=== PATIENT | female | born 1975 | race Caucasian/White ===

== ENCOUNTER 2018-01-02 17:41 | Emergency (ER) | payer BC ==
--- NOTE | 2018-01-02 19:49 | EDPHYS ---
Physician Documentation [facility] Name: Susanne Epps Age: 42 yrs Sex: Female : 1975 Arrival Date: 01/02/2018 Time: 17:52 Bed DIS19 Private MD: Mirza Chavarria ED Physician Storm Chavarria HPI: 01/02 19:47 This 42 yrs old Female presents to ER via Ambulatory with complaints of Flu gs Symptoms. 19:47 The patient or guardian reports cough, that is intermittent, described as moderate. gs Onset: The symptoms/episode began/occurred 2 week(s) ago, and became persistent. Severity of symptoms: At their worst the symptoms were moderate, in the emergency department the symptoms have improved, moderately. Modifying factors: The symptoms are alleviated by nothing, the symptoms are aggravated by nothing. Associated signs and symptoms: Pertinent positives: rhinorrhea, sore throat, Pertinent negatives: fever. The patient has experienced similar episodes in the past, a few times. The patient has not recently seen a physician. 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 - Social history:: Smoking status: Patient/guardian denies using tobacco. - Ebola Screening: : Patient denies travel to an Ebola-affected area in the 21 days before illness onset. ROS: 19:47 All other systems are negative. gs Exam: 19:47 Head/Face: Normocephalic, atraumatic. Eyes: Pupils equal round and reactive to light, gs extra-ocular motions intact. Lids and lashes normal. Conjunctiva and sclera are non-icteric and not injected. Cornea within normal limits. Periorbital areas with no swelling, redness, or edema. ENT: Nares patent. No nasal discharge, no septal abnormalities noted. Tympanic membranes are normal and external auditory canals are clear. Oropharynx with no redness, swelling, or masses, exudates, or evidence of obstruction, uvula midline. Mucous membranes moist. Neck: Trachea midline, no thyromegaly or masses palpated, and no cervical lymphadenopathy. Supple, full range of motion without nuchal rigidity, or vertebral point tenderness. No Meningismus. Chest/axilla: Normal chest wall appearance and motion. Nontender with no deformity. No lesions are appreciated. Cardiovascular: Regular rate and rhythm with a normal S1 and S2. No gallops, murmurs, or rubs. Normal PMI, no JVD. No pulse deficits. Respiratory: Lungs have equal breath sounds bilaterally, clear to auscultation and percussion. No rales, rhonchi or wheezes noted. No increased work of breathing, no retractions or nasal flaring. Abdomen/GI: Soft, non-tender, with normal bowel sounds. No distension or tympany. No guarding or rebound. No evidence of tenderness throughout. Back: No spinal tenderness. No costovertebral tenderness. Full range of motion. Skin: Warm, dry with normal turgor. Normal color with no rashes, no lesions, and no evidence of cellulitis. MS/ Extremity: Pulses equal, no cyanosis. Neurovascular intact. Full, normal range of motion. Neuro: Awake and alert, GCS 15, oriented to person, place, time, and situation. Cranial nerves II-XII grossly intact. Motor strength 5/5 in all extremities. Sensory grossly intact. Cerebellar exam normal. Normal gait. 19:47 Constitutional: The patient appears alert, awake. Vital Signs: 17:57 BP 134 / 98; Pulse 83; Resp 17; Temp 98.4(O); Pulse Ox 98% on R/A; Pain 8/10; tw2 MDM: 19:43 Patient medically screened. gs 19:47 Differential Diagnosis: Bronchitis Influenza Upper Respiratory Infection Pharyngitis. gs Data reviewed: vital signs, nurses notes. Counseling: I had a detailed discussion with the patient and/or guardian regarding: the historical points, exam findings, and any diagnostic results supporting the discharge/admit diagnosis, the need for outpatient follow up, moist cough noted. Response to treatment: the patient's symptoms have mildly improved after treatment, and as a result, I will discharge patient. 01/02 18:01 Order name: Flu; Complete Time: 19:44 tw2 01/02 18:01 Order name: Strep; Complete Time: 19:44 2 01/02 18:33 Order name: Throat Culture EDNY Administered Medications: 19:59 Drug: predniSONE 20 mg Route: PO; lp1 19:59 Follow up: Response: Medication administered at discharge. lp1 Disposition: 01/02/18 19:49 Discharged to Home. Impression: Acute bronchitis. - Condition is Stable. - Discharge Instructions: Acute Bronchitis, Adult. - Prescriptions for Prednisone 20 mg Oral Tablet - take 1 tablet by ORAL route once daily for 5 days; 5 tablet. Zyrtec 10 mg Oral Tablet - take 1 tablet by ORAL route once daily As needed; 20 tablet. Albuterol Sulfate 90 mcg/actuation - inhale 1-2 puff by INHALATION route every 4-6 hours; 1 Inhaler. - Medication Reconciliation Form, Thank You Letter, Antibiotic Education, Prescription Opioid Use form. - Follow up: Emergency Department; When: 2 - 3 days; Reason: Re-evaluation by your physician. Signatures: Dispatcher [employer] EDNY Alee Wood RN RN lp1 Kathrine Treviño RN RN tw2 Storm Chavarria MD MD Corrections: (The following items were deleted from the chart) 20:03 19:49 01/02/2018 19:49 Discharged to Home. Impression: Acute bronchitis. Condition is lp1 Stable. Forms are Medication Reconciliation Form, Thank You Letter, Antibiotic Education, Prescription Opioid Use. Follow up: Emergency Department; When: 2 - 3 days; Reason: Re-evaluation by your physician. gs
--- NOTE | 2018-01-02 19:49 | ER ---
Nurse's Notes [facility] Name: Susanne Epps Age: 42 yrs Sex: Female : 1975 Arrival Date: 01/02/2018 Time: 17:52 Bed DIS19 Private MD: Mirza Chavarria Diagnosis: Acute bronchitis Presentation: 01/02 17:56 Presenting complaint: Patient states: i have been having cough congestion for 3 weeks, tw2 it comes and goes and when it comes back it worse. Transition of care: patient was not received from another setting of care. Onset of symptoms was January 02, 2018. Risk Assessment: Do you want to hurt yourself or someone else? Patient reports no desire to harm self or others. Initial Sepsis Screen: Does the patient meet any 2 criteria? No. Patient's initial sepsis screen is negative. Does the patient have a suspected source of infection? No. Patient's initial sepsis screen is negative. Care prior to arrival: None. 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 - Social history:: Smoking status: Patient/guardian denies using tobacco. - Ebola Screening: : Patient denies travel to an Ebola-affected area in the 21 days before illness onset. Screenin:02 Abuse screen: Denies threats or abuse. Denies injuries from another. Nutritional lp1 screening: No deficits noted. Tuberculosis screening: No symptoms or risk factors identified. Fall Risk None identified. Assessment: 20:01 General: Appears in no apparent distress. Behavior is appropriate for age. Pain: Denies lp1 pain. Neuro: Level of Consciousness is awake, alert, obeys commands. Cardiovascular: No deficits noted. Respiratory: Reports shortness of breath pain with cough Respiratory effort is even, unlabored, Respiratory pattern is regular. GI: No deficits noted. : No deficits noted. EENT: Reports nasal congestion nasal discharge. Derm: Skin is pink, warm \T\ dry. Musculoskeletal: No deficits noted. Vital Signs: 17:57 BP 134 / 98; Pulse 83; Resp 17; Temp 98.4(O); Pulse Ox 98% on R/A; Pain 8/10; tw2 ED Course: 17:52 Patient arrived in ED. sb2 17:52 Mirza Chavarria DO is Private Physician. sb2 17:57 Triage completed. tw2 17:58 Arm band placed on. tw2 18:16 Strep Sent. tw2 18:16 Flu Sent. tw2 19:36 Storm Chavarria MD is Attending Physician. 19:47 Alee Wood RN is Primary Nurse. lp1 20:02 Patient has correct armband on for positive identification. lp1 20:02 No provider procedures requiring assistance completed. Patient did not have IV access lp1 during this emergency room visit. Administered Medications: 19:59 Drug: predniSONE 20 mg Route: PO; lp1 19:59 Follow up: Response: Medication administered at discharge. lp1 Outcome: 19:49 Discharge ordered by . gs 20:02 Discharged to home ambulatory. lp1 20:02 Condition: good 20:02 Discharge instructions given to patient, Instructed on discharge instructions, follow up and referral plans. medication usage, Demonstrated understanding of instructions, follow-up care, medications, Prescriptions given X 3. 20:03 Patient left the ED. lp1 Signatures: Alee Wood RN RN lp1 Kathrine Treviño RN RN tw2 Storm Chavarria MD MD Whitley Rangel sb2
[2018-01-02] MEDS ORDERED: predniSONE 20 MG TAB ONE (20:02)
== END 2018-01-02 20:03 | disposition home or self-care (01) ==
LOC: ER 17:41
DX: J20.9 Acute bronchitis, unspecified (principal); F41.9 Anxiety disorder, unspecified; G40.909 Epilepsy, unspecified, not intractable, without status epilepticus; Z88.0 Allergy status to penicillin; Z88.8 Allergy status to other drugs, medicaments and biological substances
CPT/HCPCS: 87070; 87081; 87804; 99283; J7512

== ENCOUNTER 2018-12-30 16:26 | Emergency (ER) | payer OTHER ==
--- NOTE | 2018-12-30 17:10 | ER ---
Nurse's Notes [facility] Name: Susanne Epps Age: 43 yrs Sex: Female : 1975 Arrival Date: 12/30/2018 Time: 16:29 Bed 28 Private MD: Mirza Chavarria Diagnosis: Muscle spasm of back Presentation: 12/30 16:37 Presenting complaint: Patient states: NON-TRAUMATIC LEFT SUBSCAPULAR PAIN SINCE bp YESTERDAY. Transition of care: patient was not received from another setting of care. Onset of symptoms is unknown. Risk Assessment: Do you want to hurt yourself or someone else? Patient reports no desire to harm self or others. Initial Sepsis Screen: Does the patient meet any 2 criteria? No. Patient's initial sepsis screen is negative. Does the patient have a suspected source of infection? No. Patient's initial sepsis screen is negative. Care prior to arrival: None. 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 - Social history:: Smoking status: Patient/guardian denies using tobacco. - Ebola Screening: : No symptoms or risks identified at this time. Screenin:45 Abuse screen: Denies threats or abuse. Denies injuries from another. Nutritional aj1 screening: No deficits noted. Tuberculosis screening: No symptoms or risk factors identified. 17:34 Fall Risk None identified. aj1 Assessment: 16:45 General: Appears in no apparent distress. comfortable, Behavior is calm, cooperative, aj1 appropriate for age. Pain: Complains of pain in left subscapular area. Neuro: Level of Consciousness is awake, alert, obeys commands, Oriented to person, place, time, situation, Moves all extremities. Full function Gait is steady, Speech is normal, Facial symmetry appears normal. Cardiovascular: Patient's skin is warm and dry. Respiratory: Airway is patent Respiratory effort is even, unlabored, Respiratory pattern is regular, symmetrical. GI: No signs and/or symptoms were reported involving the gastrointestinal system. : No signs and/or symptoms were reported regarding the genitourinary system. EENT: No signs and/or symptoms were reported regarding the EENT system. Derm: No signs and/or symptoms reported regarding the dermatologic system. Skin is pink, warm \T\ dry. normal. Musculoskeletal: Range of motion: intact in all extremities. Vital Signs: 16:38 BP 135 / 94; Pulse 72; Resp 20; Temp 98.6; Pulse Ox 97% ; Weight 106.59 kg; Height 5 bp ft. 8 in. (172.72 cm); 16:38 Body Mass Index 35.73 (106.59 kg, 172.72 cm) bp ED Course: 16:29 Patient arrived in ED. mr 16:30 Mirza Chavarria DO is Private Physician. mr 16:37 Triage completed. bp 16:38 Arm band placed on. bp 16:42 Russell Knott PA is PHCP. jr8 16:42 Bartolo Hawkins MD is Attending Physician. jr8 16:43 Shelby Varghese, RN is Primary Nurse. aj1 16:45 Patient has correct armband on for positive identification. Bed in low position. Call aj1 light in reach. 16:45 No provider procedures requiring assistance completed. aj1 17:34 Patient did not have IV access during this emergency room visit. aj1 Administered Medications: No medications were administered Outcome: 17:09 Discharge ordered by . jr8 17:34 Discharged to home ambulatory. aj1 17:34 Condition: good 17:34 Discharge instructions given to patient, Instructed on discharge instructions, follow up and referral plans. medication usage, Demonstrated understanding of instructions, follow-up care, medications, Prescriptions given X 1. 17:35 Patient left the ED. aj1 Signatures: Shelby Varghese, RN RN [email or web address] Yamile Camarena mr Russell Knott PA PA jr8 Rosalino Catalan RN RN bp
--- NOTE | 2018-12-30 17:10 | EDPHYS ---
Physician Documentation [facility] Name: Susanne Epps Age: 43 yrs Sex: Female : 1975 Arrival Date: 12/30/2018 Time: 16:29 Bed 28 Private MD: Mirza Chavarria ED Physician Bartolo Hawkins HPI: 12/30 17:11 This 43 yrs old Female presents to ER via Ambulatory with complaints of Back jr8 Pain. 17:11 The patient presents with pain that is acute, with no known mechanism of injury. The jr8 symptoms are located in the left subscapular area. The pain does not radiate. Pt reports that she had onset of left subscapular pain that began yesterday while at the grocery store. pain is exacerbated by movement and ROM of back and left shoulder. Pt has used aleve at home with minimal relief. Pt denies CP/SOB, numbness or paresthesias. . 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 - Social history:: Smoking status: Patient/guardian denies using tobacco. - Ebola Screening: : No symptoms or risks identified at this time. ROS: 17:11 Constitutional: Negative for fever, chills, and weight loss, Eyes: Negative for injury, jr8 pain, redness, and discharge, ENT: Negative for injury, pain, and discharge, Neck: Negative for injury, pain, and swelling, Cardiovascular: Negative for chest pain, palpitations, and edema, Respiratory: Negative for shortness of breath, cough, wheezing, and pleuritic chest pain, Abdomen/GI: Negative for abdominal pain, nausea, vomiting, diarrhea, and constipation, MS/Extremity: Negative for injury and deformity, Skin: Negative for injury, rash, and discoloration, Neuro: Negative for headache, weakness, numbness, tingling, and seizure. 17:11 Back: Positive for pain with movement. Exam: 17:11 Constitutional: This is a well developed, well nourished patient who is awake, alert, jr8 and in no acute distress. Head/Face: Normocephalic, atraumatic. Eyes: Pupils equal round and reactive to light, extra-ocular motions intact. Lids and lashes normal. Conjunctiva and sclera are non-icteric and not injected. Cornea within normal limits. Periorbital areas with no swelling, redness, or edema. ENT: Nares patent. No nasal discharge, no septal abnormalities noted. Tympanic membranes are normal and external auditory canals are clear. Oropharynx with no redness, swelling, or masses, exudates, or evidence of obstruction, uvula midline. Mucous membranes moist. Neck: Trachea midline, no thyromegaly or masses palpated, and no cervical lymphadenopathy. Supple, full range of motion without nuchal rigidity, or vertebral point tenderness. No Meningismus. Chest/axilla: Normal chest wall appearance and motion. Nontender with no deformity. No lesions are appreciated. Cardiovascular: Regular rate and rhythm with a normal S1 and S2. No gallops, murmurs, or rubs. Normal PMI, no JVD. No pulse deficits. Respiratory: Lungs have equal breath sounds bilaterally, clear to auscultation and percussion. No rales, rhonchi or wheezes noted. No increased work of breathing, no retractions or nasal flaring. Abdomen/GI: Soft, non-tender, with normal bowel sounds. No distension or tympany. No guarding or rebound. No evidence of tenderness throughout. Back: No spinal tenderness. No costovertebral tenderness. Full range of motion. Skin: Warm, dry with normal turgor. Normal color with no rashes, no lesions, and no evidence of cellulitis. Neuro: Awake and alert, GCS 15, oriented to person, place, time, and situation. Cranial nerves II-XII grossly intact. Motor strength 5/5 in all extremities. Sensory grossly intact. Cerebellar exam normal. Normal gait. Vital Signs: 16:38 BP 135 / 94; Pulse 72; Resp 20; Temp 98.6; Pulse Ox 97% ; Weight 106.59 kg; Height 5 bp ft. 8 in. (172.72 cm); 16:38 Body Mass Index 35.73 (106.59 kg, 172.72 cm) bp MDM: 16:42 Patient medically screened. jr8 17:07 Data reviewed: vital signs, nurses notes. Data interpreted: Pulse oximetry: on room air jr8 is 97 %. Interpretation: normal. Counseling: I had a detailed discussion with the patient and/or guardian regarding: the historical points, exam findings, and any diagnostic results supporting the discharge/admit diagnosis. Administered Medications: No medications were administered Disposition: 12/31 08:36 Co-signature as Attending Physician, Bartolo Hawkins MD I agree with the assessment and [facility] plan of care. Disposition: 12/30/18 17:09 Discharged to Home. Impression: Muscle spasm of back. - Condition is Stable. - Discharge Instructions: Back Pain, Adult, Back Exercises, Back Injury Prevention. - Prescriptions for Skelaxin 800 mg Oral Tablet - take 1 tablet by ORAL route every 8 hours As needed; 30 tablet. - Work release form, Medication Reconciliation Form, Thank You Letter form. - Follow up: Private Physician; When: As needed; Reason: Recheck today's complaints, Re-evaluation by your physician. - Problem is new. - Symptoms have improved. Signatures: Shelby Varghese, RN RN aj1 Bartolo Hawkins MD MD cha Roszak, Josh PA PA jr8 Rosalino Catalan, RN RN bp Corrections: (The following items were deleted from the chart) 12/30 17:35 17:09 12/30/2018 17:09 Discharged to Home. Impression: Muscle spasm of back. Condition aj1 is Stable. Forms are Medication Reconciliation Form, Thank You Letter, Antibiotic Education, Prescription Opioid Use. Follow up: Private Physician; When: As needed; Reason: Recheck today's complaints, Re-evaluation by your physician. Problem is new. Symptoms have improved. jr8
[2018-12-30 19:13] VITALS: BP 135/94; TEMP 98.6; O2SAT 97
== END 2018-12-30 17:35 | disposition home or self-care (01) ==
LOC: ER 16:26
DX: M62.830 Muscle spasm of back (principal); F41.9 Anxiety disorder, unspecified; G40.909 Epilepsy, unspecified, not intractable, without status epilepticus; Z88.0 Allergy status to penicillin; Z88.8 Allergy status to other drugs, medicaments and biological substances
CPT/HCPCS: 99282

== ENCOUNTER 2021-05-08 12:58 | Emergency (ER) | payer OTHER ==
--- OUTSIDE RECORDS SUMMARY | 2021-05-08 13:02 | XMS REPORT | Continuity of Care Document ---
:1975 Author Organization [facility] t Address [address] [place] [place] [address] Care Team Providers Name Role Phone John Carrington MD Primary Care Physician JORDON Attending Clinician Unavailable John Carrington Attending Clinician Unavailable Mario Alberto MARTINEZ Attending Clinician FARZANA FREEMAN Attending Clinician Unavailable BRANDON CORRALES Attending Clinician Unavailable Bri FRIEDMAN S Attending Clinician Aishwarya GREGORY Attending Clinician Unavailable Adenike Dobbs Attending Clinician Unavailable Payers Payer Name Policy Type Policy Number Effective Date Expiration Date S [facility] COMMUNITY PLAN [id number] 2020 STAR 00:00:00 COMMUNITY PLAN [id number] [facility] Problems Condition Condition Condition Status Onset Resolution Last Treating Co mments Source Name Details Category Date Date Treatment Clinician Date Lateral Lateral Disease Active [facility] epicondyli epicondyli 1-10 He alth tis of tis of 00:00: right right 00 elbow elbow Arthritis Arthritis Disease Active 2020-04 [facility] of of 15 Health carpometac carpometac 00:00: arpal arpal 00 (CMC) (CMC) joint of joint of right right thumb thumb Pain in Pain in Disease Active 2020-04 UT finger of finger of -15 Heal th both hands both hands 00:00: 00 Arthritis Arthritis Disease Active 2021-1 UT of of 1-15 Health carpometac carpometac 00:00: arpal arpal 00 (CMC) (CMC) joint of joint of left thumb left thumb Obesity Obesity Disease Active 2020-04 Univers (BMI (BMI 0-19 ity of 30-39.9) 30-39.9) 00:00: [place] [address] Medical Branch Seizure-li Seizure-li Disease Active 2020-04 U nivers ke ke 0-18 ity of activity activity 00:00: [place] [address] Medical Branch Allergies, Adverse Reactions, Alerts Allergy Allergy Status Severity Reaction(s) Onset Inactive Treating Comm ents Source Name Type Date Date Clinician Juliet Hollidayensi Active Other (See [facility] to Comments) 04-19 [place] adverse 00:00: of reaction 00 Medicin s to e drug Penicill Propensi Active Swelling [place] or ins ty to 04-19 [place] adverse 00:00: of reaction 00 Medicin s to e drug Penicill Allergy Active Anaphylaxis UT in G to 04-19 Health substanc 00:00: e 00 Penicill Propensi Active Anaphylaxis 2020-0 U T in G ty to 04-19 Health adverse 00:00: reaction 00 s Penicill Propensi Active Anaphylaxis 2020-0 U nivers in ty to 04-19 ity of adverse 00:00: [place] reaction 00 Medical s Branch PENICILL DRUG Active Med Anaphylaxis Uni vers IN INGREDI 04-19 ity of 00:00: [place] [facility] Social History Social Habit Start Date Stop Date Quantity Comments Source Exposure to Not sure [facility] SARS-CoV-2 (event) Tobacco use and 2021-04-19 2021-04-19 Smokeless tobacco [facility] exposure 00:00:00 00:00:00 non-user of Medicine Alcohol intake 2021-04-19 2021-04-[address] [facility] 00:00:00 00:00:00 (finding) of Medicine Sex Assigned At [birth year] [facility] 00:00:00 00:00:00 of Medicine Smoking Status Start Date Stop Date Source Ex-smoker 2021-04-19 00:00:00 2021-04-19 00:00:00 [facility] ollege of Medicine Never smoked tobacco [facility] Medications Ordered Filled Start Stop Current Ordering Indication Dosage Frequency Signature Comments Components Source Medication Medication Date Date Medication? Clinician (SIG) Name Name oxyCODONE-a Yes 49 1{tbl} Take 1-2 UT cetaminophe 1-20 tablets by He alth n 00:00: mouth (Percocet) 00 every 4 5-325 MG (four) tablet hours if needed for severe pain. busPIRone 2020-[address] [facility] (BUSPAR) 10 2-29 College MG tablet 00:00: of 00 Medicin e aripiprazol 2020-[address] [facility] e (ABILIFY) 2-29 College 2 MG tablet 00:00: of 00 Medicin e meloxicam 2020-[address] [facility] (MOBIC) 15 2-26 College MG tablet 00:00: of 00 Medicin e foLIC acid 2020-04 Yes [id number] 4mg Take 4 Univers 1 mg tablet 1-17 tablets by it y of 00:00: mouth [place] 00 daily. Medical Branch OXcarbazepi 2020-04 Yes [id number] 600mg Take 1 Univers ne 1-17 tablet by ity of (TRILEPTAL) 00:00: mouth 2 [place] as 600 mg 00 (two) Medical tablet times Branch daily. foLIC acid 2020-04 Yes [id number] 4mg Take 4 Univers 1 mg tablet 1-17 tablets by it y of 00:00: mouth [place] 00 daily. Medical Branch OXcarbazepi 2020-04 Yes [id number] 600mg Take 1 Univers ne 1-17 tablet by ity of (TRILEPTAL) 00:00: mouth 2 [place] 600 mg 00 (two) Medical tablet times Branch daily. foLIC acid 2020-04 Yes [id number] 4mg Take 4 Univers 1 mg tablet 1-17 tablets by it y of 00:00: mouth [place] 00 daily. Medical Branch OXcarbazepi 2020-04 Yes [id number] 600mg Take 1 Univers ne 1-17 tablet by ity of (TRILEPTAL) 00:00: mouth 2 [place] 600 mg 00 (two) Medical tablet times Branch daily. foLIC acid 2020-04 Yes [id number] 4mg Take 4 Univers 1 mg tablet 1-17 tablets by it y of 00:00: mouth [place] 00 daily. Medical Branch OXcarbazepi 2020-04 Yes [id number] 600mg Take 1 Univers ne 1-17 tablet by ity of (TRILEPTAL) 00:00: mouth 2 [place] 600 mg 00 (two) Medical tablet times Branch daily. foLIC acid 2020-04 Yes [id number] 4mg Take 4 Univers 1 mg tablet 1-17 tablets by it y of 00:00: mouth [place] 00 daily. Medical Branch OXcarbazepi 2020-04 Yes [id number] 600mg Take 1 Univers ne 1-17 tablet by ity of (TRILEPTAL) 00:00: mouth 2 [place] 600 mg 00 (two) Medical tablet times Branch daily. oxcarbazepi 2020-04 Yes 600mg Take 600 B aylor ne 1-17 mg by [place] (TRILEPTAL) 00:00: mouth. of 600 MG 00 Medicin tablet e folic acid 2020-04 Yes 4mg Take 4 mg [facility] (FOLVITE) 1 1-17 by mouth. Col lege MG tablet 00:00: of 00 Medicin e triamcinolo 2020-04- No [id number] 20mg UT ne 04-23 Health acetonide 15:01: 15:01 (Kenalog-40 58 :00 ) injection 20 mg triamcinolo 2020-04 No [id number] 20mg 20 mg, UT ne 04-23 [facility] acetonide 15:01: 15:01 cular, (Kenalog-40 58 :00 Once PRN ) injection Procedure, 20 mg Starting on Sun02/21/21 at 0901, For 1 dose lidocaine 2020-04 No [id number] 1mL 1 mL, UT (Xylocaine) 04-23 Injection, Health 1 % 15:01: 15:01 Once PRN injection 1 58 :00 Procedure, mL Starting on Sun02/21/21 at 0901, For 1 dose triamcinolo 2020-04 No [id number] 20mg 20 mg, UT ne 04-23 [facility] acetonide 15:01: 15:01 cular, (Kenalog-40 58 :00 Once PRN ) injection Procedure, 20 mg Starting on Sun02/21/21 at 0901, For 1 dose lidocaine 2020-04 No [id number] 1mL 1 mL, UT (Xylocaine) 04-23 Injection, Health 1 % 15:01: 15:01 Once PRN injection 1 58 :00 Procedure, mL Starting on Sun02/21/21 at 0901, For 1 dose lidocaine 2020-04- No [id number] 1mL UT (Xylocaine) 04-23 Health 1 % 15:01: 15:01 injection 1 58 :00 mL triamcinolo 2020-04- No [id number] 20mg UT ne 04-23 Health acetonide 15:01: 15:01 (Kenalog-40 58 :00 ) injection 20 mg lidocaine 2020-04- No [id number] 1mL UT (Xylocaine) 04-23 Health 1 % 15:01: 15:01 injection 1 58 :00 mL No known 2020-04 No No known UT medications 04-23 medication He alth 08:36: s 13 traZODone 2020-04 Yes Univers 100 mg 1-04 ity of tablet 00:00: [address] traZODone 2020-04 Yes Univers 100 mg 1-04 ity of tablet 00:00: [address] traZODone 2020-04 Yes Univers 100 mg 1-04 ity of tablet 00:00: [address] traZODone 2020-04 Yes Univers 100 mg 1-04 ity of tablet 00:00: [address] traZODone 2020-04 Yes Univers 100 mg 1-04 ity of tablet 00:00: [address] trazodone 2020-[address] [facility] (DESYREL) 104 College 100 MG 00:00: of tablet 00 Medicin e OXcarbazepi 2020-04- No [id number] 600mg Take 1 Univers ne 04-1017 tablet by ity of (TRILEPTAL) 00:00: 00:00 mouth 2 [place] 600 mg 00 :00 (two) Medical tablet times Branch daily. OXcarbazepi 2020-04- No [id number] 600mg Take 1 Univers ne 04-1017 tablet by ity of (TRILEPTAL) 00:00: 00:00 mouth 2 [place] 600 mg 00 :00 (two) Medical tablet times Branch daily. BRIVIACT 50 2020-04 Yes [place] [facility] TABS 0-17 College 00:00: of 00 Medicin e foLIC acid 2020- No [id number] 4mg Take 4 Univers 1 mg tablet 12-2017 tablets by i ty of 00:00: 00:00 mouth [place] 00 :00 daily. Medical Branch foLIC acid 2020- No [id number] 4mg Take 4 Univers 1 mg tablet 12-2017 tablets by i ty of 00:00: 00:00 mouth [place] 00 :00 daily. Medical Branch busPIRone 0 Yes Univers 7.5 mg 1-09 ity of tablet 00:00: Medical Branch busPIRone 2020-0 Yes Univers 7.5 mg 1-09 ity of tablet 00:00: 00 Medical Branch busPIRone 2020-0 Yes Univers 7.5 mg 1-09 ity of tablet 00:00: Medical Branch busPIRone 2020-0 Yes Univers 7.5 mg 1-09 ity of tablet 00:00: 00 Medical Branch busPIRone 2020-0 Yes Univers 7.5 mg 1-09 ity of tablet 00:00: 00 Medical Branch busPIRone 0 Yes [facility] (BUSPAR) 1-09 College 7.5 MG 00:00: of tablet 00 Medicin e Venlafaxine 0 Yes Univer s 225 mg TR24 1-08 ity of 00:00: [place] [facility] Venlafaxine 2020-0 Yes Univer s 225 mg TR24 1-08 ity of 00:00: [place] 00 Medical Branch Venlafaxine 2020-0 Yes Univer s 225 mg TR24 1-08 ity of 00:00: Medical Branch Venlafaxine 2020-0 Yes Univer s 225 mg TR24 1-08 ity of 00:00: [place] 00 Medical Branch Venlafaxine 2020-0 Yes Univer s 225 mg TR24 1-08 ity of 00:00: Medical Branch Venlafaxine 2020-0 Yes [facility] HCl 225 MG 1-08 College TB24 00:00: of 00 Medicin e Vital Signs Vital Name Observation Time Observation Value Comments Source Systolic blood 2021-04-19 15:03:00 139 mm[Hg] [facility] Diastolic blood 2021-04-19 15:03:00 91 mm[Hg] [facility] Heart rate 2021-04-19 15:03:00 76 /min [facility] Body temperature 2021-04-19 15:03:00 36.28 [facility] Body height 2021-04-19 15:03:00 170.2 cm [facility] Body weight 2021-04-19 15:03:00 86.183 kg [facility] BMI 2021-04-19 15:03:00 29.76 kg/m2 [facility] Systolic blood 2021-02-23 17:35:00 138 mm[Hg] [facility] Diastolic blood 2021-02-23 17:35:00 91 mm[Hg] Unive rs[facility] Heart rate 2021-02-23 17:33:00 61 /min [facility] Body temperature 2021-02-23 17:33:00 36.78 [facility] Body height 2021-02-23 17:33:00 170.2 cm [facility] Body weight 2021-02-23 17:33:00 88.451 kg [facility] BMI 2021-02-23 17:33:00 30.54 kg/m2 [facility] Oxygen saturation in 2021-02-23 17:33:00 99 /min [facility] Arterial blood by [facility] Pulse oximetry Branch Body height 2021-02-21 14:35:[address] [facility] Body weight 2021-02-21 14:35:00 88.451 kg [facility] BMI 2021-02-21 14:35:00 30.54 kg/m2 [facility] Procedures Procedure Date / Time Performed Performing Clinician Sourc e ARTHROCENTESIS ASPIR&/INJ SMALL 2021-02-21 15:01:[address] [facility] JT/BURSA W/O US BILATERAL XR FINGERS 2+ VIEWS RIGHT 2021-02-21 14:45:33 [facility] XR FINGERS 2+ VIEWS LEFT 2021-02-21 14:45:17 [facility] Plan of Care Planned Activity Planned Date Details Comments Source Future Scheduled 2021-04-20 Screening for malignant [facility] Test 09:07:39 neoplasm of colon Medicine (procedure) [code = 185035237] Future Scheduled 2021-04-20 Screening for malignant [facility] of Test 09:07:39 neoplasm of breast Medicine (procedure) [code = 748129332] Future Scheduled 2021-04-20 COVID-19 Vaccine (1) [facility] of Test 09:07:39 [code = COVID-19 Vaccine Med icine (1)] Future Scheduled 2021-04-20 TETANUS SHOT (ADULT) [facility] Test 09:07:39 [code = TETANUS SHOT Medicin e (ADULT)] Future Scheduled 2021-04-20 BMI FOLLOW UP PLAN [code [facility] of Test 09:07:39 = BMI FOLLOW UP PLAN] Medici ne Future Scheduled 2021-04-20 Hepatitis C screening [facility] Test 09:07:39 (procedure) [code = Medicine 553495917] Future Scheduled 2021-04-20 Human immunodeficiency B [facility] Test 09:07:39 virus screening Medicine (procedure) [code = 380275765] Future Scheduled 2021-04-20 Screening for malignant [facility] Test 09:07:39 neoplasm of cervix Medicine (procedure) [code = 912318829] Future Scheduled 2021-04-20 FLU VACCINE > 6 MONTHS B [facility] Test 09:07:39 [code = FLU VACCINE > 6 Medi cine MONTHS] Encounters Start End Encounter Admission Attending Care Care Encounter Source Date/Time Date/Time Type Type Clinicians Facility Department ID 2021-05-05 [id number] [facility] 13:54:55 [facility] 2021-05-04 Outpatient Carrington, [facility] [id number] 13:21:58 [place] [id number] Gwen [facility] 2021-05-04 Outpatient Carrington, [facility] [id number] 13:17:[address] Outpati ent Clinics 2021-04-18 Outpatient JORDON [facility] [id number] CT 15:10:35 [facility] 2021-04-18 Outpatient [facility] [id number] CT 14:08:37 Health 2021-02-21 Outpatient [facility] [id number] CT 08:37:12 Health 2021-02-21 Outpatient [facility] [id number] CT 08:37:12 Health 2021-05-06 2021-05-06 Telephone ESTEFANIA Llanes [id number] 00:00:00 00:00:[address] [id number] Health [id number] [id number] 2021-04-29 2021-04-29 Outpatient JORDON, [facility] [id number] 06:50:00 23:59:00 [place] [facility] 2021-04-19 2021-04-19 Office WYATT CORRALES [id number] [facility] 08:57:47 10:15:41 Visit ROSA AMBULATOR 350.1.13.21 College Y 0.2.7.2.686 of [id number] [facility] 805 e 2021-04-18 2021-04-18 Office ESTEFANIA Freeman [facility] [id number] 13:45:00 15:10:35 Visit [facility] [id number] [facility] MEDICAL 9.2.7.2.686 [place] 0 [id number] 2021-02-24 2021-02-24 Telephone Kenan Gregory [facility] [id number] Univers 00:00:00 00:00:00 S Y HEALTH 350.1.13.10 i ty of CL[place] [id number] [facility] shanell 092 Branch 2021-02-24 2021-02-24 Telephone Kenan Gregory [facility] [id number] Univers 00:00:00 00:00:00 S HEALTH [id number] [place]2.686 [place] [id number] [address] OFFICE BUILDING 2021-02-23 2021-02-23 Outpatient R KENAN GREGORY [facility] [id number] [facility] 12:00:00 12:00:00 ity of [facility] 2021-02-23 2021-02-23 Cap Coverer Draw, Clc-Bls Lab [facility] 1.2.8 [id number] Univers 11:44:53 11:59:53 Visit Kenan Gregory Aishwarya HEALTH [id number] ity [place] [id number] [address] OFFICE BUILDING 2021-02-23 2021-02-23 Office Kenan Gregory [facility] [id number] [facility] 11:21:16 11:51:16 Visit [facility] [id number] it [place] [id number] [address] OFFICE BUILDING 2021-02-21 2021-02-21 Office JORDONESTEFANIA [facility] [id number] 08:04:19 08:34:19 Visit KYLE HOPE 350.1.13.58 H [facility] 9.2.7.2.686 [place] [id number] 5 Results This patient has no known results.
--- NOTE | 2021-05-08 14:43 | ER ---
Nurse's Notes [facility] Name: Susanne Epps Age: 46 yrs Sex: Female : 1975 Arrival Date: 05/08/2021 Time: 13:05 Bed Waiting Private MD: Diagnosis: Disruption of external operation (surgical) wound, not elsewhere classified Presentation: 05/08 14:22 Chief complaint: Patient states: post surgical incision on Right thumb has had vg1 'greensish and think discharge' that began today. Coronavirus screen: Vaccine status: Patient reports receiving the 2nd dose of the covid vaccine. Client denies travel out of the [place] in the last 14 days. Ebola Screen: Patient negative for fever greater than or equal to 101.5 degrees Fahrenheit, and additional compatible Ebola Virus Disease symptoms. Initial Sepsis Screen: Does the patient meet any 2 criteria? No. Patient's initial sepsis screen is negative. Does the patient have a suspected source of infection? No. Patient's initial sepsis screen is negative. Risk Assessment: Do you want to hurt yourself or someone else? Patient reports no desire to harm self or others. Onset of symptoms was May 08, 2021. 14:22 Method Of Arrival: Ambulatory vg1 14:22 Acuity: JAYDA 4 vg1 Triage Assessment: 14:24 General: Appears in no apparent distress. comfortable, Behavior is calm, cooperative. vg1 Pain: Denies pain. Derm: post surgical site appears to be draining. 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 - Social history:: Smoking status: Patient denies any tobacco usage or history of. Screenin:20 Abuse screen: Denies threats or abuse. Nutritional screening: No deficits noted. vg1 Tuberculosis screening: No symptoms or risk factors identified. Fall Risk None identified. Vital Signs: 14:22 BP 132 / 97; Pulse 76; Resp 16; Temp 97.5; Pulse Ox 100% ; Weight 90.72 kg; Height 5 vg1 ft. 7 in. (170.18 cm); Pain 0/10; 14:22 Body Mass Index 31.32 (90.72 kg, 170.18 cm) vg1 ED Course: 13:05 Patient arrived in ED. ds1 14:24 Triage completed. vg1 14:24 Arm band placed on. vg1 14:37 Tania Amaya FNP-C [facility] kb 14:37 Bartolo Hawkins MD is Attending Physician. kb 15:20 Patient has correct armband on for positive identification. vg1 15:20 No provider procedures requiring assistance completed. Patient did not have IV access vg1 during this emergency room visit. Administered Medications: No medications were administered Outcome: 14:43 Discharge ordered by . kb 15:20 Discharged to home ambulatory, with family. vg1 15:20 Condition: good 15:20 Discharge instructions given to patient, Instructed on discharge instructions, follow up and referral plans. medication usage, Demonstrated understanding of instructions, follow-up care, medications, Prescriptions given X 1. 15:20 Patient left the ED. vg1 Signatures: Tania Amaya FNP-C FNP-Sanaz Honeycutt ds1 Kamille Woodard, RN RN vg1
--- NOTE | 2021-05-08 14:44 | EDPHYS ---
Physician Documentation [facility] Name: Susanne Epps Age: 46 yrs Sex: Female : 1975 Arrival Date: 05/08/2021 Time: 13:05 Bed Waiting Private MD: EARNESTINE Physician Bartolo Hawkins HPI: 05/08 14:39 This 46 yrs old Female presents to ER via Ambulatory with complaints of Post Surgical kb Pain. 14:39 Patient presents to ED for recheck of: surgical incision. The affected area is on the kb lateral aspect of right hand. Previous treatment: The patient was initially treated 9 day(s) ago. Progress: The patient reports increased drainage. The patient has not experienced similar symptoms in the past. The patient has been recently seen by a physician:. Pt states she had a bone removed from her right hand on 04/29/21. States she had some thick drainage from the incision site today . 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 - Social history:: Smoking status: Patient denies any tobacco usage or history of. ROS: 14:37 Constitutional: Negative for fever, chills, and weight loss. 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 . 14:37 All other systems are negative. Exam: 14:37 Constitutional: This is a well developed, well nourished patient who is awake, alert, kb and in no acute distress. Head/Face: Normocephalic, atraumatic. ENT: Moist Mucous membranes Respiratory: Respirations even and unlabored. No increased work of breathing. Talking in full sentences MS/ Extremity: Pulses equal, no cyanosis. Neurovascular intact. Full, normal range of motion. Neuro: Awake and alert, GCS 15, oriented to person, place, time, and situation. Moves all extremities. Normal gait. Psych: Awake, alert, with orientation to person, place and time. Behavior, mood, and affect are within normal limits. 14:37 Skin: surgical incision to right hand with mild dehiscence. No drainage at this time. No redness, swelling or warmth. Vital Signs: 14:22 BP 132 / 97; Pulse 76; Resp 16; Temp 97.5; Pulse Ox 100% ; Weight 90.72 kg; Height 5 vg1 ft. 7 in. (170.18 cm); Pain 0/10; 14:22 Body Mass Index 31.32 (90.72 kg, 170.18 cm) vg1 MDM: 14:37 Data reviewed: vital signs, nurses notes. Data interpreted: Pulse oximetry: on room air kb is 100 %. Interpretation: normal. Counseling: I had a detailed discussion with the patient and/or guardian regarding: the historical points, exam findings, and any diagnostic results supporting the discharge/admit diagnosis, the need for outpatient follow up, a hand specialist, to return to the emergency department if symptoms worsen or persist or if there are any questions or concerns that arise at home. ED course: Pt will follow up with surgeon this week. 14:43 Patient medically screened. kb Administered Medications: No medications were administered Disposition: 05/09 10:32 Co-signature as Attending Physician, Bartolo Hawkins MD I agree with the assessment and walker plan of care. Disposition Summary: 05/08/21 14:43 Discharge Ordered Location: Home kb Condition: Stable kb Diagnosis - Disruption of external operation (surgical) wound, not elsewhere classified kb Followup: kb - With: Emergency Department - When: As needed - Reason: Worsening of condition Followup: kb - With: Private Physician - When: 2 - 3 days - Reason: Recheck today's complaints, Continuance of care, Re-evaluation by your physician Discharge Instructions: - Discharge Summary Sheet kb - Wound Infection, Woed-cd-Yhoh kb Forms: - Medication Reconciliation Form kb - Thank You Letter kb - Antibiotic Education kb - Prescription Opioid Use kb - Work release form vg1 - Family Work Release vg1 Prescriptions: - Bactrim DS 800-160 mg Oral Tablet - take 1 tablet by ORAL route every 12 hours for 7 days; 14 tablet; Refills: 0, kb Product Selection Permitted Signatures: Tania Amaya, ERP PM-C ERP PM-Bartolo Gonzalez MD MD cha Garcia, Victoria, RN RN vg1
[2021-05-08 15:48] VITALS: BP 132/97; TEMP 97.5; O2SAT 100
== END 2021-05-08 15:20 | disposition home or self-care (01) ==
LOC: ER 12:58
DX: T81.31XA Disruption of external operation (surgical) wound, not elsewhere classified, initial encounter (principal); F41.9 Anxiety disorder, unspecified; Z88.0 Allergy status to penicillin; Z88.8 Allergy status to other drugs, medicaments and biological substances

== ENCOUNTER 2022-08-27 20:29 | Emergency (ER) | payer OTHER ==
--- OUTSIDE RECORDS SUMMARY | 2022-08-27 20:36 | XMS REPORT | Continuity of Care Document ---
:1975 Author Organization [facility] t Address [address] [place] [address] Care Team Providers Name Role Phone Gaston Carrington MD Primary Care Physician Gaston Carrington Attending Clinician Unavailable CHIRAG FREEMAN Attending Clinician Unavailable CINDY ESCUDERO Attending Clinician Unavailable Cindy Escudero MD Attending Clinician Unknown, Attending Attending Clinician Unavailable Doctor Unassigned, [place] Attending Clinician Unavailable Provider, [facility] Attending Clinician Unavailable Annetta Llanes APRN Attending Clinician CHIRAG FREEMAN Attending Clinician Unavailable Chirag Freeman Attending Clinician ROSA CORRALES Attending Clinician Unavailable KENAN GREGORY Attending Clinician Unavailable Rosa Corrales DO Attending Clinician [phone] Draw, [facility] Attending Clinician Unavailable Bri FRIEDMAN, Kenan Gracia Attending Clinician ELMERMUSTAPHAGOMEZ Attending Clinician Unavailable ROSHNI STEPHEN Attending Clinician Unavailable Joseph GILLIS, Bee Ortega Attending Clinician Unavailable ERIN MCINTYRE Attending Clinician Unavailable Renata Levi DO Attending Clinician Erin Mcintyre MD Attending Clinician RENATA LEVI Attending Clinician Unavailable Tg GILLIS, Joelle Ortega Attending Clinician Unavailable Jacob FRIEDMAN, Kiet Fagan Attending Clinician Kellee Toussaint MD Attending Clinician KELLEE TOUSSAINT Attending Clinician Unavailable Only, Adc Test Attending Clinician Unavailable Pob, Adc Lab Main Attending Clinician Unavailable Fabian Webb MD Attending Clinician FABIAN WEBB Attending Clinician Unavailable FABIAN WEBB Attending Clinician Unavailable Benito Cramer DO Attending Clinician Lab, Adc Fam Pob I Attending Clinician Unavailable Emilee [place] Attending Clinician Kellee Toussaint MD Admitting Clinician KELLEE TOUSSAINT Admitting Clinician Unavailable Payers Payer Name Policy Type Policy Number Effective Date Expiration Date S neri [facility] [id number] 2020 PLAN STAR 00:00:00 [facility] [id number] 2020 00:00:00 [facility] 2 [id number] [facility] PLAN [id number] [facility] Problems Condition Condition Condition Status Onset Resolution Last Treating Co mments Source Name Details Category Date Date Treatment Clinician Date 5A [id number] Diagnosis Active 2022-06-26 Memoria Active 06-23 11:50:00 l 06/23/2022 00:00: Corey aguero [place] [id number] [place] CARPOMETAC CARPOMETA Diagnosis Active 2022-06-28 Memoria ARPAL CARPAL 17 17:14:00 l ARTHROPLAS ARTHROPLAS 00:00: He sharif TY /C TY /C 00 INTERNAL INTERNAL Active 06/23/2022 [facility] CMC CMC Disease Active [facility] arthritis arthritis 3-14 Heal th 00:00: 00 Dislocatio Dislocatio Disease Active U T n of n of 3-14 Health carpometac carpometac 00:00: arpal arpal 00 joint of joint of left hand left hand Primary Primary Disease Active UT osteoarthr osteoarthr 05-01 He alth itis of itis of 00:00: first first 00 carpometac carpometac arpal arpal joint of joint of left hand left hand Pain of Pain of Disease Active UT right hand right hand 05-01 He alth 00:00: 00 Pain of Pain of Disease Active UT finger of finger of 05-01 Heal left hand left hand 00:00: 00 Subluxatio Subluxatio Disease Active U T n of n of 05-01 Health carpometac carpometac 00:00: arpal arpal 00 joint of joint of right right thumb thumb Lateral Lateral Disease Active UT epicondyli epicondyli 05-01 He alth tis of tis of 00:00: left elbow left elbow 00 Lateral Lateral Disease Active UT epicondyli epicondyli 05-01 He alth tis of tis of 00:00: right right 00 elbow elbow Thumb Thumb Disease Active UT pain, pain, 6-09 Health right right 00:00: 00 Pain of Pain of Disease Active UT ulnar side ulnar side 4-28 He alth of wrist of wrist 00:00: 00 RT CMC RT CMC Diagnosis Active 2021-07-13 M emoria ARTHRITIS, ARTHRITIS, 07-04 15:03:00 l THUMB THUMB 00:00: Ed WOUND WOUND 00 INFECTION INFECTION Active 07/04/2021 [facility] Wound Wound Disease Active UT infection infection 07-04 Heal after after 00:00: surgery surgery 00 RIGHT RIGHT Diagnosis Active 2021-05-03 Mem oria THUMB THUMB 04-19 19:39:00 l CARPOMETAC CARPOMETAC 00:00: He sharif DALTONPAL ARPAL 00 JOINT JOINT OSTEOA OSTEOA Active 04/19/2021 [facility] Ed Lateral Lateral Disease Active UT epicondyli epicondyli 1-10 He alth tis of tis of 00:00: right right 00 elbow elbow Arthritis Arthritis Disease Active 2020-04 UT of of -15 Health carpometac carpometac 00:00: arpal arpal 00 (CMC) (CMC) joint of joint of right right thumb thumb Pain in Pain in Disease Active 2020-04 UT finger of finger of 15 Heal th both hands both hands 00:00: 00 Obesity Obesity Disease Active 2020-04 Univers (BMI (BMI 0-19 ity of 30-39.9) 30-39.9) 00:00: [address] Seizure-li Seizure-li Disease Active 2020-04 U nivers ke ke 0-18 ity of activity activity 00:00: [address] [id number] Left hand Problem Co mmon [address] pain [facility] [id number] Tenosynovi Problem Co mmon tis of Spirit thumb - [facility] [id number] Vitamin D Problem Comm on deficiency [facility] [id number] Arthralgia Problem Com mon of Spirit multiple - [facility] joints [facility] Mixed Anxiety Problem Common anxiety and Spirit and depression - CHI depressive [facility] [id number] Lipids Problem Common abnormal [facility] [id number] Family Problem Common history of Spirit pancreatic - [facility] cancer [facility] [id number] Small Problem Common thenar [facility] eminence - [facility] [id number] Sprain of Problem Comm on metacarpop Spirit halangeal - CHI joint of right [facility] encounter [id number] Family Problem Common history of Spirit rheumatoid - [facility] arthritis [facility] [id number] History of Problem Co mmon seizure [facility] Anxiety Anxiety Problem Resolve 2021-07-11 M emoria (finding) (finding) d 10:41:07 l Resolved Ed Problem 07/11/2021 [facility] Depressive Problem Resolve 2021-07-11 Memoria disorder Depressive d 10:41:07 l (disorder) disorder Herm betty (disorder) Resolved Problem 07/11/2021 [facility] Generalize Generaliz Problem Resolve 2021-07-11 Memoria d seizure ed seizure d 10:41:07 l (finding) (finding) Herm betty Resolved Problem 07/11/2021 lasr seizure in 2003 [facility] Insomnia Insomnia Problem Resolve 2021-07-11 Memoria (disorder) (disorder) d 10:41:07 l Resolved [place] Problem 07/11/2021 [facility] Osteoarthr Osteoarth Problem Active 2022-06-30 Memoria itis of ritis of 05:01:49 l first first [place] carpometac carpometac arpal arpal joint of joint of right hand right hand (disorder) (disorder) Active Problem 06/30/2022 [facility] Arthritis Arthritis Problem Active 2022-06-30 Memoria of first of first 05:01:49 l carpometac carpometac He rmann arpal arpal joint of joint of left hand left hand Active Problem 06/30/2022 [facility] Simple Simple Problem Active 2022-06-30 Live dana obesity obesity 05:01:49 l (disorder) (disorder) He rmann Active Problem 06/30/2022 Ortho and [facility] Infected Infected Problem Active 2022-06-30 Memoria seroma seroma 05:01:49 l after after Ed surgical surgical procedure procedure (disorder) (disorder) Active Problem 06/30/2022 [facility] [id number] Intermitte Problem Co mmon nt Spirit palpitatio - CHI ns [facility] Allergic Allergic Diagnosis 2022-06-30 2022-06-30 Memoria arthritis arthritis 06-27 05:01:49 05:01:49 l of the of the 21:04: Ed hand hand 00 (disorder) (disorder) 06/27/2022 Diagnosis 06/30/2022 [facility] History of Past Illness Condition Condition Condition Status Onset Resolution Last Treating Co mments Source Name Details Category Date Date Treatment Clinician Date Infection Infection Problem 2021-07-11 2021-07-11 Memoria following following 07-08 10:41:07 10:41:07 l a a 19:49: Ed procedure, procedure, 00 superficia superficia l l incisional incisional surgical surgical site, site, initial initial encounter encounter 07/08/2021 07/11/2021 [facility] Unilateral Unilatera Problem 2021-05-02 2021-05-02 Memoria primary l primary 04-29 10:08:20 10:08:20 l osteoarthr osteoarthr 17:38: He rmann itis of itis of first first carpometac carpometac arpal arpal joint, joint, right hand right hand 05/02/2021 [facility] Allergies, Adverse Reactions, Alerts Allergy Allergy Status Severity Reaction(s) Onset Inactive Treating Comm ents Source Name Type Date Date Clinician Topamax Propensi Active Other (See [place] [facility] ty to Comments) 04-19 [place] adverse 00:00: of reaction 00 Medicin s to e drug TOPIRAMA DRUG Active Other-Cmnt Univ ers TE INGREDI 04-19 ity of 00:00: [place] 00 Medical Branch Topirama Propensi Active Other - See 0 U nivers te ty to comments 04-19 ity of adverse 00:00: [place] reaction 00 Medical s Branch Penicill Propensi Active Swelling [facility] or ins ty to 04-19 [place] adverse 00:00: of reaction 00 Medicin s to e drug Penicill Allergy Active Anaphylaxis UT in G to 04-19 Health substanc 00:00: e 00 Penicill Propensi Active Anaphylaxis 0 U T in G ty to 04-19 Health adverse 00:00: reaction 00 s Penicill Allergy Active Swelling Other UT ins to 04-19 reaction( Health substanc 00:00: s): e 00 Congestio n Penicill Propensi Active Anaphylaxis 0 U nivers in ty to 04-19 ity of adverse 00:00: [place] reaction 00 Medical s Branch PENICILL DRUG Active Med Anaphylaxis Uni vers IN INGREDI 04-19 ity of 00:00: [place] 00 Medical Branch topirama topirama Active Unknown Commo n te te [facility] Penicill Penicill Active Unknown Commo n in in [facility] penicill penicill Active Memori a ins ins l [place] Topamax Topamax Active [facility] Dilantin Dilantin Active [facility] [place] NKFA NKFA Active [place] Social History Social Habit Start Date Stop Date Quantity Comments Source History of [facility] - Tobacco Use [facility] Sex Assigned At [facility] - [facility] Exposure to 2022-08-13 2022-08-23 Not sure University of SARS-CoV-2 00:00:00 08:39:00 [facility] (event) Branch Alcohol intake 2022-02-06 2022-02-06 Ex-drinker [facility] lege of 00:00:00 00:00:00 (finding) Medicine Social History 2021-04-27 2021-04-27 Dhiraj flores 19:50:04 19:50:04 Cigarette 2021-02-21 2021-02-21 [place] [facility] pack-years 00:00:00 00:00:00 Tobacco use and 2020-04-19 2020-04-19 Smokeless tobacco Un iversity of exposure 00:00:00 00:00:00 non-user [facility] Smoking Status Start Date Stop Date Source Tobacco smoking status 2022-06-23 15:53:35 2022-06-23 15:53:35 M abby Ed Never smoked tobacco [place] [facility] Medications Ordered Filled Start Stop Current Ordering Indication Dosage Frequency Signature Comments Components Source Medication Medication Date Date Medication? Clinician (SIG) Name Name ondansetron Yes [id number] 4mg Take 1 Univers 4 mg 5-17 tablet by ity of disintegrat 00:00: mouth [place] ing tablet 00 every 8 Medica l (eight) Branch hours as needed for Nausea and Vomiting (N/V). ibuprofen Yes [id number] 600mg Take 1 U nivers 600 mg 5-17 tablet by ity of tablet 00:00: mouth [place] 00 every 6 Medical (six) Branch hours as needed for Pain (scale 1-3) or Pain (scale 4-6). ondansetron Yes [id number] 4mg Take 1 Univers 4 mg 5-17 tablet by ity of disintegrat 00:00: mouth [place] ing tablet 00 every 8 Medica l (eight) Branch hours as needed for Nausea and Vomiting (N/V). ibuprofen Yes [id number] 600mg Take 1 U nivers 600 mg 5-17 tablet by ity of tablet 00:00: mouth [place] 00 every 6 Medical (six) Branch hours as needed for Pain (scale 1-3) or Pain (scale 4-6). Nitrofurant 2022- Yes [id number] 100mg Take 1 Univers oin&Nit. 5-17 05-23 capsule by ity of Macroc[place] 00:00: 04:59 mouth in [place] 100 mg 00 :00 the Medical capsule morning Branch and 1 capsule in the evening. Do all this for 5 days. Nitrofurant 2022- Yes [id number] 100mg Take 1 Univers oin&Nit. 5-17 05-23 capsule by ity of Macrocryst 00:00: 04:59 mouth in [place] 100 mg 00 :00 the Medical capsule morning Branch and 1 capsule in the evening. Do all this for 5 days. phenazopyri 2022- Yes [id number] 200mg Take 2 Univers dine 100 mg 5-17 05-20 tablets by i ty of tablet 00:00: 04:59 mouth in [place] 00 :00 the Medical morning Branch and 2 tablets at noon and 2 tablets in the evening. Do all this for 2 days. phenazopyri 2022- Yes [id number] 200mg Take 2 Univers dine 100 mg 5-17 05-20 tablets by i ty of tablet 00:00: 04:59 mouth in [place] 00 :00 the Medical morning Branch and 2 tablets at noon and 2 tablets in the evening. Do all this for 2 days. Zofran 8 mg Yes 8 mg = 1 Me moria oral tablet 3-21 tab, PO, l 21:05: TID, # 12 Ed 00 tab, 0 Refill(s), called to pharmacy [place] Yes 1 tab, PO, Memori a 7.5/325 3-21 Q6H, # 40 l oral tablet 21:05: tab, 0 Herm betty 00 Refill(s), called to pharmacy Zofran 8 mg Yes 8 mg = 1 Me moria oral tablet 3-21 tab, PO, l 21:05: TID, # 12 Ed 00 tab, 0 Refill(s), called to pharmacy [place] 0 Yes 1 tab, PO, Memori a 7.5/325 3-21 Q6H, # 40 l oral tablet 21:05: tab, 0 Herm betty 00 Refill(s), called to pharmacy multivitami 2022-0 Yes Daily, 0 Me moria n 3-21 Refill(s) l 18:30: Ed 00 multivitami 2022-0 Yes Daily, 0 Me moria n 3-21 Refill(s) l 18:30: [place] folic acid 2022-0 Yes Daily, 0 Mem oria 3-17 Refill(s) l 15:52: Ed 00 folic acid 2022-0 Yes Daily, 0 Mem oria 3-17 Refill(s) l 15:52: Ed 00 Effexor 2022-0 Yes PO, 0 Memoria 3-17 Refill(s) l 15:51: [place] 00 Effexor 2022-0 Yes PO, 0 Memoria 3-17 Refill(s) l 15:51: [place] 00 lidocaine 2022- No [id number] 1mL UT (Xylocaine) 05-01 Health 1 % 14:30: 14:30 injection 1 00 :00 mL triamcinolo 2022- No [id number] 40mg U T ne 05-01 Health acetonide 14:30: 14:30 (Kenalog-40 00 :00 ) injection 40 mg triamcinolo 2022- No [id number] 40mg 40 mg, UT ne 05-01 Intra-carrol Health acetonide 14:30: 14:30 cular, (Kenalog-40 00 :00 Once PRN ) injection Procedure, 40 mg Starting on Sun05/01/22 at 0830, For 1 dose lidocaine 2022- No [id number] 1mL 1 mL, UT (Xylocaine) 05-01 Injection, H ealth 1 % 14:30: 14:30 Once PRN injection 1 00 :00 Procedure, mL Starting on Sun05/01/22 at 0830, For 1 dose lidocaine 2022-2022- No [id number] 1mL UT (Xylocaine) 05-01 Health 1 % 14:30: 14:30 injection 1 00 :00 mL triamcinolo 2022- No [id number] 40mg U T ne 05-01 Health acetonide 14:30: 14:30 (Kenalog-40 00 :00 ) injection 40 mg triamcinolo 2022- No [id number] 40mg 40 mg, UT ne 05-01 Intra-carrol Health acetonide 14:30: 14:30 cular, (Kenalog-40 00 :00 Once PRN ) injection Procedure, 40 mg Starting on Sun05/01/22 at 0830, For 1 dose lidocaine 2022- No [id number] 1mL 1 mL, UT (Xylocaine) 05-01 Injection, H ealth 1 % 14:30: 14:30 Once PRN injection 1 00 :00 Procedure, mL Starting on Sun05/01/22 at 0830, For 1 dose Bupivicaine Bupivicaine 2021-04 No 2.5mg [place] 1-14 Spirit 00:00: - [facility] 00 [facility] Depo-Medrol Depo-Medrol 2021-04 No 40mg Common (Methylpred (Methylpred 1-14 S pirit nisolone) nisolone) 00:00: - C [place] 40mg 40mg 00 [facility] zonisamide Yes [id number] 400mg Take 4 Univers (ZONEGRAN) 7-20 capsules ity o f 100 mg 00:00: by mouth [place] capsule 00 at Medical bedtime. Branch foLIC acid Yes [id number] 1mg Take 1 Univers 1 mg tablet 7-20 tablet by ity of 00:00: mouth in [place] 00 the Medical morning. Branch zonisamide Yes [id number] 400mg Take 4 Univers (ZONEGRAN) 7-20 capsules ity o f 100 mg 00:00: by mouth [place] capsule 00 at Medical bedtime. Branch foLIC acid Yes [id number] 1mg Take 1 Univers 1 mg tablet 7-20 tablet by ity of 00:00: mouth in [place] 00 the Medical morning. Branch zonisamide Yes [id number] 400mg Take 4 Univers (ZONEGRAN) 7-20 capsules ity o f 100 mg 00:00: by mouth [place] capsule 00 at Medical bedtime. Branch foLIC acid Yes [id number] 1mg Take 1 Univers 1 mg tablet 7-20 tablet by ity of 00:00: mouth in [place] 00 the Medical morning. Branch zonisamide Yes [id number] 400mg Take 4 Univers (ZONEGRAN) 7-20 capsules ity o f 100 mg 00:00: by mouth [place] capsule 00 at Medical bedtime. Branch foLIC acid Yes [id number] 1mg Take 1 Univers 1 mg tablet 7-20 tablet by ity of 00:00: mouth in [place] 00 the Medical morning. Branch zonisamide Yes [id number] 400mg Take 4 Univers (ZONEGRAN) 7-20 capsules ity o f 100 mg 00:00: by mouth [place] capsule 00 at Medical bedtime. Branch foLIC acid Yes [id number] 1mg Take 1 Univers 1 mg tablet 7-20 tablet by ity of 00:00: mouth in [place] the Medical morning. Branch lidocaine 2021- No [id number] 1mL UT (Xylocaine) 09-15 Health 1 % 20:08: 20:08 injection 1 38 :00 mL triamcinolo 2021- No [id number] 40mg UT ne 09-15 Health acetonide 20:08: 20:08 (Kenalog-40 38 :00 ) injection 40 mg triamcinolo 2021- No [id number] 40mg 40 mg, UT ne 09-15 Intra-carrol Health acetonide 20:08: 20:08 cular, (Kenalog-40 38 :00 Once PRN ) injection Procedure, 40 mg Starting on Nelly 09/15/21 at 1508, For 1 dose lidocaine 2021- No [id number] 1mL 1 mL, UT (Xylocaine) 09-15 Injection, Health 1 % 20:08: 20:08 Once PRN injection 1 38 :00 Procedure, mL Starting on Nelly 09/15/21 at 1508, For 1 dose Bupivicaine Bupivicaine No 2.5mg Common [place] 5- Spirit 00:00: - [facility] 00 [facility] Depo-Medrol Depo-Medrol No 40mg Common (Methylpred (Methylpred 5-02 S pirit nisolone) nisolone) 00:00: - C [place] 40mg 40mg 00 [facility] methylPREDN Yes Follow UT ISolone 08-04 schedule Health (Medrol 00:00: on package Dospak) 4 00 instructio MG tablets ns .. take 1st and then start mobic after finish methylPREDN Yes Follow UT ISolone 08-04 schedule Health (Medrol 00:00: on package D[place]ak) 4 00 instructio MG tablets ns .. take 1st and then start mobic after finish methylPREDN Yes Follow UT ISolone 08-04 schedule Health (Medrol 00:00: on package Dospak) 4 00 instructio MG tablets ns .. take 1st and then start mobic after finish methylPREDN Yes Follow UT ISolone 08-04 schedule Health (Medrol 00:00: on package Dospak) 4 00 instructio MG tablets ns .. take 1st and then start mobic after finish methylPREDN Yes Follow UT ISolone 08-04 schedule Health (Medrol 00:00: on package [place]ak) 4 00 instructio MG tablets ns .. take 1st and then start mobic after finish methylPREDN Yes Follow UT ISolone 08-04 schedule Health (Medrol 00:00: on package [place]ak) 4 00 instructio MG tablets ns .. take 1st and then start mobic after finish methylPREDN Yes Follow UT ISolone 08-04 schedule Health (Medrol 00:00: on package [place]) 4 00 instructio MG tablets ns .. take 1st and then start mobic after finish methylPREDN Yes Follow UT ISolone 08-04 schedule Health (Medrol 00:00: on package [place]) 4 00 instructio MG tablets ns .. take 1st and then start mobic after finish esomeprazol 2021- No [id number] 40mg Take 1 UT e (NexIUM) 08-04 05-20 capsule Healt h [address] 00:00: 04:59 (40 mg capsule 00 :00 total) by mouth 1 (one) time each day before breakfast for 21 days. Do not open capsule. meloxicam 15mg QD Take 1 UT (Mobic) 15 08-0414 tablet (15 He alth MG tablet 00:00: 04:59 mg total) 00 :00 by mouth 1 (one) time each day for 15 days. ANES No 10 mg, 2 Memoria labetalol 4-01 mL, Route: l 19:55: IVP, Drug form: INJ, Q5Min, Dosing Weight 96.818, kg, PRN Elevated BP, Start date: 07/08/21 14:55:00 CDT, Duration: 5 doses or times, Stop date: Limited # of times, 0 ANES No Notes: Memoria oxyCODONE 5 4-01 (Same as: l mg 19:55: Roxicodone immediate ) release tablet ANES No Notes: Memoria morphine 4-01 (Same l Sulfate 19:55: as:MORPhin Herm e Sulfate) ANES No Notes: Memoria HYDROmorpho 4-01 Same as l ne 19:55: Dilaudid ANES No Notes: Memoria flumazenil 4-01 (Same as: l 19:55: Romazicon) ANES No Notes: Memoria naloxone 4-01 Same as l 19:55: Narcan ANES No Notes: Memoria ePHEDrine 4-01 (Same as: l 19:55: ePHEDrine 00 Sulfate) ANES No Notes: Memoria diphenhydrA 4-01 (Same as: l MINE 19:55: Benadryl) ANES No Notes: Memoria meperidine 4-01 (Same as: l 19:55: Demerol) "Use Precaution in Elderly, Seizure disorders, and Renal impairment " ANES No Notes: Memoria ondansetron 4-01 (Same as: l 19:55: Zofran) MEDICATION WASTE Product Size: 4 mg Product Wasted: ___ mg ANES No Notes: Do Memoria promethazin 4-01 not give l e + Sodium 19:55: IV push. Her arndt Chloride 00 (Same as: 0.9% IV 100 Phenergan) mL ANES No 10 mg, 2 Memoria labetalol 4-01 mL, Route: l 19:55: IVP, Drug form: INJ, Q5Min, Dosing Weight 96.818, kg, PRN Elevated BP, Start date: 07/08/21 14:55:00 CDT, Duration: 5 doses or times, Stop date: Limited # of times, 0 ANES No Notes: Memoria oxyCODONE 5 4-01 (Same as: l mg 19:55: Roxicodone ) release tablet ANES No Notes: Memoria morphine 4-01 (Same l Sulfate 19:55: as:MORPhin e Sulfate) ANES No Notes: Memoria HYDROmorpho 4-01 Same as l ne 19:55: Dilaudid ANE No Notes: Memoria flumazenil 4-01 (Same as: l 19:55: Romazicon) ANES No Notes: Memoria naloxone 4-01 Same as l 19:55: Narcan ANE No Notes: Memoria ePHEDrine 4-01 (Same as: l 19:55: ePHEDrine 00 Sulfate) ANES No Notes: Memoria diphenhydrA 4-01 (Same as: l MINE 19:55: Benadryl) ANES No Notes: Memoria meperidine 4-01 (Same as: l 19:55: Demerol) "Use Precaution in Elderly, Seizure disorders, and Renal impairment " ANES No Notes: Memoria ondansetron 4-01 (Same as: l 19:55: Zofran) MEDICATION WASTE Product Size: 4 mg Product Wasted: ___ mg ANES No Notes: Do Memoria promethazin 4-01 not give l e + Sodium 19:55: IV push. Her arndt Chloride 00 (Same as: 0.9% IV 100 Phenergan) mL ANES No 10 mg, 2 Memoria labetalol 4-01 mL, Route: l 19:55: IVP, Drug form: INJ, Q5Min, Dosing Weight 96.818, kg, PRN Elevated BP, Start date: 07/08/21 14:55:00 CDT, Duration: 5 doses or times, Stop date: Limited # of times, 0 ANES No Notes: Memoria oxyCODONE 5 4-01 (Same as: l mg 19:55: Roxicodone ) release tablet ANES No Notes: Memoria morphine 4-01 (Same l Sulfate 19:55: as:MORPhin e Sulfate) ANES No Notes: Memoria HYDROmorpho 4-01 Same as l ne 19:55: Dilaudid ANES No Notes: Memoria flumazenil 4-01 (Same as: l 19:55: Romazicon) ANES No Notes: Memoria naloxone 4-01 Same as l 19:55: Narcan ANES No Notes: Memoria ePHEDrine 4-01 (Same as: l 19:55: ePHEDrine Sulfate) ANES No Notes: Memoria diphenhydrA 4-01 (Same as: l MINE 19:55: Benadryl) ANES No Notes: Memoria meperidine 4-01 (Same as: l 19:55: Demerol) "Use Precaution in Elderly, Seizure disorders, and Renal impairment " ANES No Notes: Memoria ondansetron 4-01 (Same as: l 19:55: Zofran) MEDICATION WASTE Product Size: 4 mg Product Wasted: ___ mg ANES No Notes: Do Memoria promethazin 4-01 not give l e + Sodium 19:55: IV push. Her arndt Chloride 00 (Same as: 0.9% IV 100 Phenergan) mL ANES No 10 mg, 2 Memoria labetalol 4-01 mL, Route: l 19:55: IVP, Drug form: INJ, Q5Min, Dosing Weight 96.818, kg, PRN Elevated BP, Start date: 07/08/21 14:55:00 CDT, Duration: 5 doses or times, Stop date: Limited # of times, 0 ANES No Notes: Memoria oxyCODONE 5 4- (Same as: l mg 19:55: Roxicodone ) release tablet ANES No Notes: Memoria morphine 4- (Same l Sulfate 19:55: as:MORPhin e Sulfate) ANES No Notes: Memoria HYDROmorpho 4- Same as l ne 19:55: Dilaudid ANES No Notes: Memoria flumazenil 4- (Same as: l 19:55: Romazicon) ANES No Notes: Memoria naloxone 4-01 Same as l 19:55: Narcan ANES No Notes: Memoria ePHEDrine 4- (Same as: l 19:55: ePHEDrine Sulfate) ANES No Notes: Memoria diphenhydrA 4- (Same as: l MINE 19:55: Benadryl) ANES No Notes: Memoria meperidine 4- (Same as: l 19:55: Demerol) "Use Precaution in Elderly, Seizure disorders, and Renal impairment " ANES No Notes: Memoria ondansetron 4- (Same as: l 19:55: Zofran) MEDICATION WASTE Product Size: 4 mg Product Wasted: ___ mg ANES No Notes: Do Memoria promethazin 4- not give l e + Sodium 19:55: IV push. Her arndt Chloride 00 (Same as: 0.9% IV 100 Phenergan) mL dexamethaso No Route: IV, Memoria ne (ANES) 4- Drug form: l 19:50: INJ, ONCE, [place] 00 Stop date: 07/08/21 14:50:00 CDT glycopyrrol No Route: IV, Memoria ate (ANES) 07-08 Drug form: l 19:50: INJ, ONCE, [place] 00 Stop date: 07/08/21 14:50:00 CDT Cleocin No Route: IV, Live dana Phosphate 07-08 Drug form: l (ANES) 19:50: INJ, ONCE, [place] nn Stop date: 07/08/21 14:50:00 CDT phenylephri No Route: IV, Memoria ne (ANES) 07-08 Drug form: l 19:50: INJ, ONCE, [place] 00 Stop date: 07/08/21 14:50:00 CDT ketOROLAC No IV, ONCE Live dana (ANES) 07-08 l 19:50: [place] 00 Colace 100 Yes 100 mg = 1 M emoria mg oral 07-08 cap, PO, l capsule 19:50: BID, # 12 [place]any nn 00 cap, 0 Refill(s), called to pharmacy Tylenol Yes 1 tab, PO, Live dana with 07-08 Q6H, # 12 l Codeine #3 19:50: tab, 0 [place] nn oral tablet 00 Refill(s), called to pharmacy Zofran 8 mg Yes 8 mg = 1 Me moria oral tablet 07-08 tab, PO, l 19:50: TID, # 12 [place] 00 tab, 0 Refill(s), called to pharmacy ondansetron No Route: IV, Memoria (ANES) 07-08 Drug form: l 19:50: INJ, ONCE, Stop date: 07/08/21 14:50:00 CDT dexamethaso No Route: IV, Memoria ne (ANES) 07-08 Drug form: l 19:50: INJ, ONCE, Stop date: 07/08/21 14:50:00 CDT glycopyrrol No Route: IV, Memoria ate (ANES) 07-08 Drug form: l 19:50: INJ, ONCE, Stop date: 07/08/21 14:50:00 CDT Cleocin No Route: IV, Live dana Phosphate 07-08 Drug form: l (ANES) 19:50: INJ, ONCE, [place] nn Stop date: 07/08/21 14:50:00 CDT phenylephri No Route: IV, Memoria ne (ANES) 07-08 Drug form: l 19:50: INJ, ONCE, [place] 00 Stop date: 07/08/21 14:50:00 CDT ketOROLAC No IV, ONCE Live dana (ANES) 07-08 l 19:50: [place] 00 Tylenol Yes 1 tab, PO, Live dana with 07-08 Q6H, # 12 l Codeine #3 19:50: tab, 0 [place] nn oral tablet 00 Refill(s), called to pharmacy Zofran 8 mg Yes 8 mg = 1 Me moria oral tablet 07-08 tab, PO, l 19:50: TID, # 12 Ed 00 tab, 0 Refill(s), called to pharmacy ondansetron No Route: IV, Memoria (ANES) 07-08 Drug form: l 19:50: INJ, ONCE, Stop date: 07/08/21 14:50:00 CDT Colace 100 Yes 100 mg = 1 M emoria mg oral 07-08 cap, PO, l capsule 19:50: BID, # 12 [place] nn 00 cap, 0 Refill(s), called to pharmacy dexamethaso No Route: IV, Memoria ne (ANES) 07-08 Drug form: l 19:50: INJ, ONCE, Stop date: 07/08/21 14:50:00 CDT glycopyrrol No Route: IV, Memoria ate (ANES) 07-08 Drug form: l 19:50: INJ, ONCE, Stop date: 07/08/21 14:50:00 CDT Cleocin No Route: IV, Live dana Phosphate 07-08 Drug form: l (ANES) 19:50: INJ, ONCE, [place] nn Stop date: 07/08/21 14:50:00 CDT phenylephri No Route: IV, Memoria ne (ANES) 07-08 Drug form: l 19:50: INJ, ONCE, [place] 00 Stop date: 07/08/21 14:50:00 CDT ketOROLAC No IV, ONCE Live dana (ANES) 07-08 l 19:50: [place] 00 Colace 100 Yes 100 mg = 1 M emoria mg oral 07-08 cap, PO, l capsule 19:50: BID, # 12 [place] nn 00 cap, 0 Refill(s), called to pharmacy Tylenol Yes 1 tab, PO, Live dana with 07-08 Q6H, # 12 l Codeine #3 19:50: tab, 0 [place] nn oral tablet 00 Refill(s), called to pharmacy Zofran 8 mg Yes 8 mg = 1 Me moria oral tablet 07-08 tab, PO, l 19:50: TID, # 12 Ed 00 tab, 0 Refill(s), called to pharmacy ondansetron No Route: IV, Memoria (ANES) 07-08 Drug form: l 19:50: INJ, ONCE, Stop date: 07/08/21 14:50:00 CDT dexamethaso No Route: IV, Memoria ne (ANES) 07-08 Drug form: l 19:50: INJ, ONCE, Stop date: 07/08/21 14:50:00 CDT glycopyrrol No Route: IV, Memoria ate (ANES) 07-08 Drug form: l 19:50: INJ, ONCE, Stop date: 07/08/21 14:50:00 CDT Cleocin No Route: IV, Live dana Phosphate 07-08 Drug form: l (ANES) 19:50: INJ, ONCE, [place] Stop date: 07/08/21 14:50:00 CDT phenylephri No Route: IV, Memoria ne (ANES) 07-08 Drug form: l 19:50: INJ, ONCE, Stop date: 07/08/21 14:50:00 CDT ketOROLAC No IV, ONCE Live dana (ANES) 07-08 l 19:50: [place] 00 Tylenol Yes 1 tab, PO, Live dana with 07-08 Q6H, # 12 l Codeine #3 19:50: tab, 0 [place] nn oral tablet 00 Refill(s), called to pharmacy Zofran 8 mg Yes 8 mg = 1 Me moria oral tablet 07-08 tab, PO, l 19:50: TID, # 12 Ed 00 tab, 0 Refill(s), called to pharmacy ondansetron No Route: IV, Memoria (ANES) 07-08 Drug form: l 19:50: INJ, ONCE, Stop date: 07/08/21 14:50:00 CDT Colace 100 Yes 100 mg = 1 M emoria mg oral 07-08 cap, PO, l capsule 19:50: BID, # 12 [place] nn 00 cap, 0 Refill(s), called to pharmacy midazolam No Route: IV, Me moria (ANES) 07-08 Drug form: l 19:45: SOLN, [place] ONCE, Stop date: 07/08/21 14:45:00 CDT lidocaine No Route: IV, Me moria (ANES) 07-08 Drug form: l 19:45: INJ, ONCE, Stop date: 07/08/21 14:45:00 CDT fentaNYL No Route: IV, Mem oria (ANES) 07-08 Drug form: l 19:45: INJ, ONCE, Stop date: 07/08/21 14:45:00 CDT propofol No Route: IV, Mem oria (ANES) 07-08 Drug form: l 19:45: INJ, ONCE, Stop date: 07/08/21 14:45:00 CDT midazolam No Route: IV, Me moria (ANES) 07-08 Drug form: l 19:45: SOLN, Ed 00 ONCE, Stop date: 07/08/21 14:45:00 CDT lidocaine 2021-0 No Route: IV, Me moria (ANES) 07-08 Drug form: l 19:45: INJ, ONCE, [place] 00 Stop date: 07/08/21 14:45:00 CDT fentaNYL 2021-0 No Route: IV, Mem oria (ANES) 07-08 Drug form: l 19:45: INJ, ONCE, [place] 00 Stop date: 07/08/21 14:45:00 CDT propofol 2021-0 No Route: IV, Mem oria (ANES) 07-08 Drug form: l 19:45: INJ, ONCE, [place] 00 Stop date: 07/08/21 14:45:00 CDT midazolam 2021-0 No Route: IV, Me moria (ANES) 07-08 Drug form: l 19:45: SOLN, [place] ONCE, Stop date: 07/08/21 14:45:00 CDT lidocaine 2021-0 No Route: IV, Me moria (ANES) 07-08 Drug form: l 19:45: INJ, ONCE, [place] 00 Stop date: 07/08/21 14:45:00 CDT fentaNYL 2021-0 No Route: IV, Mem oria (ANES) 07-08 Drug form: l 19:45: INJ, ONCE, [place] 00 Stop date: 07/08/21 14:45:00 CDT propofol 202-0 No Route: IV, Mem oria (ANES) 07-08 Drug form: l 19:45: INJ, ONCE, [place] 00 Stop date: 07/08/21 14:45:00 CDT midazolam 2021-0 No Route: IV, Me moria (ANES) 07-08 Drug form: l 19:45: SOLN, [place] 00 ONCE, Stop date: 07/08/21 14:45:00 CDT lidocaine 2021-0 No Route: IV, Me moria (ANES) 07-08 Drug form: l 19:45: INJ, ONCE, [place] 00 Stop date: 07/08/21 14:45:00 CDT fentaNYL 2021-0 No Route: IV, Mem oria (ANES) 07-08 Drug form: l 19:45: INJ, ONCE, [place] 00 Stop date: 07/08/21 14:45:00 CDT propofol 2-0 No Route: IV, Mem oria (ANES) 4-01 Drug form: l 19:45: INJ, ONCE, [place] Stop date: 07/08/21 14:45:00 CDT Lactated 2-0 No Route: IV, Mem oria Ringers 4-01 Total l Injection 19:01: Volume: [place] nn IV (ANES) 00 1,000, 1000 mL Start date: 07/08/21 14:01:00 CDT, Stop date: 07/08/21 15:01:00 CDT Lactated 2-0 No Route: IV, Mem oria Ringers 4-01 Total l Injection 19:01: Volume: [place] nn IV (ANES) 00 1,000, 1000 mL Start date: 07/08/21 14:01:00 CDT, Stop date: 07/08/21 15:01:00 CDT Lactated 2-0 No Route: IV, Mem oria Ringers 4-01 Total l Injection 19:01: Volume: [place] nn IV (ANES) 00 1,000, 1000 mL Start date: 07/08/21 14:01:00 CDT, Stop date: 07/08/21 15:01:00 CDT Lactated 2-0 No Route: IV, Mem oria Ringers 4-01 Total l Injection 19:01: Volume: [place] nn IV (ANES) 00 1,000, 1000 mL Start date: 07/08/21 14:01:00 CDT, Stop date: 07/08/21 15:01:00 CDT clindamycin 2-0 No 900 mg, 50 Memoria 4-01 mL, Route: l 19:00: IVPB, Drug form: INJ, PRE OP, Dosing Weight 96.818, kg, Start date: 07/08/21 14:00:00 CDT, Duration: 1 doses or times, Infuse over: 30 minutes, ABX Indication : Surgical Prophylaxi s, 0 clindamycin 2-0 No 900 mg, 50 Memoria 4-01 mL, Route: l 19:00: IVPB, Drug form: INJ, PRE OP, Dosing Weight 96.818, kg, Start date: 07/08/21 14:00:00 CDT, Duration: 1 doses or times, Infuse over: 30 minutes, ABX Indication : Surgical Prophylaxi s, 0 clindamycin 2022-0 No 900 mg, 50 Memoria 4-01 mL, Route: l 19:00: IVPB, Drug [place] 00 form: INJ, PRE OP, Dosing Weight 96.818, kg, Start date: 07/08/21 14:00:00 CDT, Duration: 1 doses or times, Infuse over: 30 minutes, ABX Indication : Surgical Prophylaxi s, 0 clindamycin 2022-0 No 900 mg, 50 Memoria 4-01 mL, Route: l 19:00: IVPB, Drug Ed 00 form: INJ, PRE OP, Dosing Weight 96.818, kg, Start date: 07/08/21 14:00:00 CDT, Duration: 1 doses or times, Infuse over: 30 minutes, ABX Indication : Surgical Prophylaxi s, 0 LR IV 1,000 2022-0 No 1,000 mL, M emoria mL 4- Rate: 75 l 18:18: ml/hr, [place] 00 Infuse over: 13.3 hr, Route: IV, Dosing Weight 96.818 kg, Total Volume: 1,000, Start date: 07/08/21 13:18:00 CDT, Duration: 30 day, Stop date: 08/07/21 13:17:00 CDT, BSA: 2.16 m2, 0 LR IV 1,000 2022-0 No 1,000 mL, M emoria mL 4- Rate: 75 l 18:18: ml/hr, [place] 00 Infuse over: 13.3 hr, Route: IV, Dosing Weight 96.818 kg, Total Volume: 1,000, Start date: 07/08/21 13:18:00 CDT, Duration: 30 day, Stop date: 08/07/21 13:17:00 CDT, BSA: 2.16 m2, 0 LR IV 1,000 2022-0 No 1,000 mL, M emoria mL 4- Rate: 75 l 18:18: ml/hr, [place] 00 Infuse over: 13.3 hr, Route: IV, Dosing Weight 96.818 kg, Total Volume: 1,000, Start date: 07/08/21 13:18:00 CDT, Duration: 30 day, Stop date: 08/07/21 13:17:00 CDT, BSA: 2.16 m2, 0 LR IV 1,000 2022-0 No 1,000 mL, M emoria mL 4-01 Rate: 75 l 18:18: ml/hr, [place] 00 Infuse over: 13.3 hr, Route: IV, Dosing Weight 96.818 kg, Total Volume: 1,000, Start date: 07/08/21 13:18:00 CDT, Duration: 30 day, Stop date: 08/07/21 13:17:00 CDT, BSA: 2.16 m2, 0 Bactrim DS 2-0 Yes PO, Q12H, Me moria 800 mg- 160 4-01 0 l mg oral 17:40: Refill(s) [place] nn tablet 00 Bactrim DS 2-0 Yes PO, Q12H, Me moria 800 mg- 160 4-01 0 l mg oral 17:40: Refill(s) [place] nn tablet 00 Bactrim DS 2-0 Yes PO, Q12H, Me moria 800 mg- 160 4-01 0 l mg oral 17:40: Refill(s) [place] nn tablet 00 Bactrim DS 2-0 Yes PO, Q12H, Me moria 800 mg- 160 4-01 0 l mg oral 17:40: Refill(s) [place] nn tablet 00 KlonoPIN 2022-0 Yes 0.5 mg = 1 Mem oria 0.5 mg oral 3-29 tab, PO, l tablet 19:36: QID, # 90 [place] n 00 tab, 0 Refill(s) KlonoPIN 2022-0 Yes 0.5 mg = 1 Mem oria 0.5 mg oral 3-29 tab, PO, l tablet 19:36: QID, # 90 [place] n 00 tab, 0 Refill(s) KlonoPIN 2022-0 Yes 0.5 mg = 1 Mem oria 0.5 mg oral 3-29 tab, PO, l tablet 19:36: QID, # 90 [place] n 00 tab, 0 Refill(s) KlonoPIN 2022-0 Yes 0.5 mg = 1 Mem oria 0.5 mg oral 3-29 tab, PO, l tablet 19:36: QID, # 90 [place] n 00 tab, 0 Refill(s) zonisamide 2022-0 Yes 100 mg = 1 M emoria 100 mg oral 3-29 cap, PO, l capsule 19:35: Daily, # [place] n 00 30 cap, 0 Refill(s) zonisamide 2022-0 Yes 400 mg = 4 M emoria 100 mg oral 3-29 cap, PO, l capsule 19:35: Daily, # [place] n 00 30 cap, 0 Refill(s) zonisamide 2022-0 Yes 100 mg = 1 M emoria 100 mg oral 3-29 cap, PO, l capsule 19:35: Daily, # [place] n 00 30 cap, 0 Refill(s) zonisamide 2022-0 Yes 400 mg = 4 M emoria 100 mg oral 3-29 cap, PO, l capsule 19:35: Daily, # [place] n 00 30 cap, 0 Refill(s) zonisamide 2-0 Yes 400mg Take 400 [facility] (ZONEGRAN) 3-29 mg by [facility] 100 MG 00:00: mouth of capsule 00 daily. Medicin e zonisamide 2021-0 Yes 400mg Take 400 [facility] (ZONEGRAN) 3-29 mg by [facility] 100 MG 00:00: mouth of capsule 00 daily. Medicin e zonisamide 2021-0 Yes 400mg Take 400 [facility] (ZONEGRAN) 3-29 mg by [place] 100 MG 00:00: mouth of capsule 00 daily. Medicin e sulfamethox 2021-0 2021- No 226 1{tbl} Q.5D Take 1 U T azole-trime 3-28 04-05 tablet by He alth thoprim 00:00: 04:59 mouth 2 (Bactrim 00 :00 (two) DS) 800-160 times a MG tablet day for 7 days. clonazePAM 2021-0 Yes [id number] .5mg Take 1 U nivers 0.5 mg 3-21 tablet by ity of tablet 00:00: mouth [place] 00 every 8 Medical (eight) Branch hours. clonazePAM 2021-0 Yes [id number] .5mg Take 1 U nivers 0.5 mg 3-21 tablet by ity of tablet 00:00: mouth [place] 00 every 8 Medical (eight) Branch hours. zonisamide 2021-0 Yes [id number] 300mg Take 3 [facility] (ZONEGRAN) 3-20 capsules ity o f 100 mg 00:00: by mouth [place] capsule 00 at Medical bedtime. Branch zonisamide 2021-0 Yes [id number] 300mg Take 3 [facility] (ZONEGRAN) 3-20 capsules ity o f 100 mg 00:00: by mouth [place] capsule 00 at Medical bedtime. Branch phenytoin 2021- Yes [id number] 300mg Take 3 U nivers Extended 3-11 capsules ity of 100 mg 00:00: by mouth [place] capsule 00 at Medical bedtime. Branch phenytoin 2021-2021- No [id number] 300mg Take 3 [facility] Extended 3-11 03-20 capsules ity of 100 mg 00:00: 00:00 by mouth [place] capsule 00 :00 at Medical bedtime. Branch phenytoin 2021-2021- No [id number] 300mg Take 3 [facility] Extended 3-11 03-20 capsules ity of 100 mg 00:00: 00:00 by mouth [place] capsule 00 :00 at Medical bedtime. Branch foLIC acid Yes [id number] 1mg Take 1 [facility] 1 mg tablet 3-09 tablet by ity of 00:00: mouth [place] 00 daily. Medical Branch OXcarbazepi Yes [id number] 600mg Take 1 [facility] ne 3-09 tablet by ity of (TRILEPTAL) 00:00: mouth 2 [place] 600 mg 00 (two) Medical tablet times Branch daily. foLIC acid 2021-0 Yes [id number] 1mg Take 1 [facility] 1 mg tablet 3-09 tablet by ity of 00:00: mouth [place] 00 daily. Medical Branch foLIC acid 0 Yes [id number] 1mg Take 1 [facility] 1 mg tablet 3-09 tablet by ity of 00:00: mouth [place] 00 daily. Medical Branch OXcarbazepi 2021- No [id number] 600mg Take 1 [facility] ne 3-09 03-20 tablet by ity of (TRILEPTAL) 00:00: 00:00 mouth 2 [place] 600 mg 00 :00 (two) Medical tablet times Branch daily. OXcarbazepi 2021- No [id number] 600mg Take 1 [facility] ne 06-15-20 tablet by ity of (TRILEPTAL) 00:00: 00:00 mouth 2 [place] 600 mg 00 :00 (two) Medical tablet times Branch daily. Lacosamide 2021- No [id number] 150mg Take 1.5 [facility] (VIMPAT) 06-15-11 tablets by ity of 100 mg 00:00: 00:00 mouth 2 [place] tablet 00 :00 (two) Medical times Branch daily. sulfamethox 2021- No 226 1{tbl} Q.5D Take 1 U T azole-trime 2-17 -25 tablet by He alth thoprim 00:00: 05:59 mouth 2 (Bactrim 00 :00 (two) DS) 800-160 times a MG tablet day for 7 days. Acetaminoph Yes 1 tab, PO, Memoria en 325 MG / 21 Q6H, # 40 l Oxycodone 17:39: tab, 0 [place] n Hydrochlori 00 Refill(s), de 5 MG called to Oral Tablet pharmacy [Percocet 5/325] Docusate Yes 100 mg = 1 Mem oria Sodium 100 1-21 cap, PO, l MG Oral 17:39: BID, # 12 [place] nn Capsule 00 cap, 0 [Colace] Refill(s), called to pharmacy Acetaminoph Yes 1 tab, PO, Memoria en 325 MG / -21 Q6H, # 40 l Oxycodone 17:39: tab, 0 [place] n Hydrochlori 00 Refill(s), de 5 MG called to Oral Tablet pharmacy [Percocet 5/325] Docusate Yes 100 mg = 1 Mem oria Sodium 100 1-21 cap, PO, l MG Oral 17:39: BID, # 12 [place] nn Capsule 00 cap, 0 [Colace] Refill(s), called to pharmacy Colace 100 Yes 100 mg = 1 M emoria mg oral 1-21 cap, PO, l capsule 17:39: BID, # 12 [place] nn 00 cap, 0 Refill(s), called to pharmacy Acetaminoph Yes 1 tab, PO, Memoria en 325 MG / 21 Q6H, # 40 l Oxycodone 17:39: tab, 0 [place] n Hydrochlori 00 Refill(s), de 5 MG called to Oral Tablet pharmacy [[facility] ] Docusate Yes 100 mg = 1 Mem oria Sodium 100 1-21 cap, PO, l MG Oral 17:39: BID, # 12 [place] nn Capsule 00 cap, 0 [Colace] Refill(s), called to pharmacy Acetaminoph Yes 1 tab, PO, Memoria en 325 MG / 04-29 Q6H, # 40 l Oxycodone 17:39: tab, 0 [place] n Hydrochlori 00 Refill(s), de 5 MG called to Oral Tablet pharmacy [[facility] ] Docusate Yes 100 mg = 1 Mem oria Sodium 100 1-21 cap, PO, l MG Oral 17:39: BID, # 12 [place] nn Capsule 00 cap, 0 [Colace] Refill(s), called to pharmacy Colace 100 Yes 100 mg = 1 M emoria mg oral 1-21 cap, PO, l capsule 17:39: BID, # 12 [place] nn 00 cap, 0 Refill(s), called to pharmacy Ondansetron Yes 8 mg = 1 Me moria 8 MG Oral 1-21 tab, PO, l Tablet 17:38: TID, # 12 Corey n [Zofran] 00 tab, 0 Refill(s), called to pharmacy Ondansetron Yes 8 mg = 1 Me moria 8 MG Oral 1-21 tab, PO, l Tablet 17:38: TID, # 12 [place] n [Zofran] 00 tab, 0 Refill(s), called to pharmacy Ondansetron Yes 8 mg = 1 Me moria 8 MG Oral 1-21 tab, PO, l Tablet 17:38: TID, # 12 [place] n [Zofran] 00 tab, 0 Refill(s), called to pharmacy Ondansetron Yes 8 mg = 1 Me moria 8 MG Oral 1-21 tab, PO, l Tablet 17:38: TID, # 12 [place] n [Zofran] 00 tab, 0 Refill(s), called to pharmacy ePHEDrine No Route: IV, Me moria (ANES) 04-29 Drug form: l 17:34: INJ, ONCE, Stop date: 04/29/21 11:34:00 P[employer]ENGER [employer] ePHEDrine 0 No Route: IV, Me moria (ANES) 04-29 Drug form: l 17:34: INJ, ONCE, Stop date: 04/29/21 11:34:00 P[employer]ENGER [employer] ePHEDrine 0 No Route: IV, Me moria (ANES) 04-29 Drug form: l 17:34: INJ, ONCE, Stop date: 04/29/21 11:34:00 PASSENGER CONDUCTOR ePHEDrine 2021-0 No Route: IV, Me moria (ANES) 04-29 Drug form: l 17:34: INJ, ONCE, Stop date: 04/29/21 11:34:00 P[employer]ENGER CONDU[employer] ondansetron No Route: IV, Memoria (ANES) 04-29 Drug form: l 17:29: INJ, ONCE, Stop date: 04/29/21 11:29:00 PASSENGER CONDU[employer] dexamethaso 2021-0 No Route: IV, Memoria ne (ANES) 04-29 Drug form: l 17:29: INJ, ONCE, Stop date: 04/29/21 11:29:00 PASSENGER CONDUCTOR ondansetron 0 No Route: IV, Memoria (ANES) 04-29 Drug form: l 17:29: INJ, ONCE, Stop date: 04/29/21 11:29:00 PASSENGER CONDUCTOR dexamethaso 2021-0 No Route: IV, Memoria ne (ANES) 04-29 Drug form: l 17:29: INJ, ONCE, Stop date: 04/29/21 11:29:00 PASSENGER CONDUCTOR ondansetron 2021-0 No Route: IV, Memoria (ANES) 04-29 Drug form: l 17:29: INJ, ONCE, Stop date: 04/29/21 11:29:00 PASSENGER CONDUCTOR dexamethaso 2022-0 No Route: IV, Memoria ne (ANES) 04-29 Drug form: l 17:29: INJ, ONCE, Stop date: 04/29/21 11:29:00 PASSENGER CONDUCTOR ondansetron No Route: IV, Memoria (ANES) 04-29 Drug form: l 17:29: INJ, ONCE, Stop date: 04/29/21 11:29:00 PASSENGER CONDUCTOR dexamethaso No Route: IV, Memoria ne (ANES) 04-29 Drug form: l 17:29: INJ, ONCE, Stop date: 04/29/21 11:29:00 PASSENGER CONDUCTOR lidocaine 0 No Route: IV, Me moria (ANES) 04-29 Drug form: l 17:24: INJ, ONCE, Stop date: 04/29/21 11:24:00 PASSENGER CONDUCTOR propofol 2021-0 No Route: IV, Mem oria (ANES) 04-29 Drug form: l 17:24: INJ, ONCE, Stop date: 04/29/21 11:24:00 PASSENGER CONDUCTOR Cleocin 2021-0 No Route: IV, Live dana Phosphate 04-29 Drug form: l (ANES) 17:24: INJ, ONCE, [place] Stop date: 04/29/21 11:24:00 PASSENGER CONDUCTOR lidocaine 2021-0 No Route: IV, Me moria (ANES) 04-29 Drug form: l 17:24: INJ, ONCE, Stop date: 04/29/21 11:24:00 PASSENGER CONDUCTOR propofol 2021-0 No Route: IV, Mem oria (ANES) 04-29 Drug form: l 17:24: INJ, ONCE, Stop date: 04/29/21 11:24:00 PASSENGER CONDUCTOR Cleocin 2021-0 No Route: IV, Live dana Phosphate - Drug form: l (ANES) 17:24: INJ, ONCE, [place] Stop date: 04/29/21 11:24:00 PASSENGER CONDUCTOR lidocaine 2021-0 No Route: IV, Me moria (ANES) 04-29 Drug form: l 17:24: INJ, ONCE, Stop date: 04/29/21 11:24:00 PASSENGER CONDUCTOR propofol 2021-0 No Route: IV, Mem oria (ANES) 1-21 Drug form: l 17:24: INJ, ONCE, Ed Stop date: 04/29/21 11:24:00 PASSENGER CONDUCTOR Cleocin 2021-0 No Route: IV, Live dana Phosphate 1-21 Drug form: l (ANES) 17:24: INJ, ONCE, [place] nn Stop date: 04/29/21 11:24:00 PASSENGER CONDUCTOR lidocaine 2021-0 No Route: IV, Me moria (ANES) 1-21 Drug form: l 17:24: INJ, ONCE, [place] 00 Stop date: 04/29/21 11:24:00 PASSENGER CONDUCTOR propofol 2021-0 No Route: IV, Mem oria (ANES) 1-21 Drug form: l 17:24: INJ, ONCE, Ed 00 Stop date: 04/29/21 11:24:00 PASSENGER CONDUCTOR Cleocin 2021-0 No Route: IV, Live dana Phosphate 1-21 Drug form: l (ANES) 17:24: INJ, ONCE, [place] nn Stop date: 04/29/21 11:24:00 PASSENGER CONDUCTOR Lactated 2021-0 No Route: IV, Mem oria Ringers 1-21 Total l Injection 16:35: Volume: [place] nn IV (ANES) 00 1,000, 1000 mL Start date: 04/29/21 10:35:00 PASSENGER CONDUCTOR, Stop date: 04/29/21 11:35:00 PASSENGER CONDUCTOR Lactated 2021-0 No Route: IV, Mem oria Ringers 1-21 Total l Injection 16:35: Volume: [place] nn IV (ANES) 00 1,000, 1000 mL Start date: 04/29/21 10:35:00 PASSENGER CONDUCTOR, Stop date: 04/29/21 11:35:00 PASSENGER CONDUCTOR Lactated 2021-0 No Route: IV, Mem oria Ringers 1-21 Total l Injection 16:35: Volume: [place] nn IV (ANES) 00 1,000, 1000 mL Start date: 04/29/21 10:35:00 PASSENGER CONDUCTOR, Stop date: 04/29/21 11:35:00 PASSENGER CONDUCTOR Lactated 2021-0 No Route: IV, Mem oria Ringers 1-21 Total l Injection 16:35: Volume: [place] nn IV (ANES) 00 1,000, 1000 mL Start date: 04/29/21 10:35:00 PASSENGER CONDUCTOR, Stop date: 04/29/21 11:35:00 PASSENGER CONDUCTOR Clindamycin 2022-0 No 900 mg, 50 Memoria 1-21 mL, Route: l 15:00: IVPB, Drug [place] 00 form: INJ, ONCALL, Dosing Weight 90.909, kg, Start date: 04/29/21 9:00:00 P[employer]ENGER [employer], Duration: 30 day, Stop date: 05/29/21 8:59:00 PASSENGER CONDUCTOR, Infuse over: 30 minutes, ABX Indication : Surgical Prophylaxi s, 0 Clindamycin 2022-0 No 900 mg, 50 Memoria 1-21 mL, Route: l 15:00: IVPB, Drug Ed form: INJ, ONCALL, Dosing Weight 90.909, kg, Start date: 04/29/21 9:00:00 PASSENGER CONDU[employer], Duration: 30 day, Stop date: 05/29/21 8:59:00 PASSENGER CONDUCTOR, Infuse over: 30 minutes, ABX Indication : Surgical Prophylaxi s, 0 Clindamycin 2022-0 No 900 mg, 50 Memoria 1-21 mL, Route: l 15:00: IVPB, Drug Ed form: INJ, ONCALL, Dosing Weight 90.909, kg, Start date: 04/29/21 9:00:00 PASSENGER CONDUCTOR, Duration: 30 day, Stop date: 05/29/21 8:59:00 PASSENGER CONDUCTOR, Infuse over: 30 minutes, ABX Indication : Surgical Prophylaxi s, 0 Clindamycin 2022-0 No 900 mg, 50 Memoria 1-21 mL, Route: l 15:00: IVPB, Drug Ed form: INJ, ONCALL, Dosing Weight 90.909, kg, Start date: 04/29/21 9:00:00 PASSENGER CONDUCTOR, Duration: 30 day, Stop date: 05/29/21 8:59:00 PASSENGER CONDUCTOR, Infuse over: 30 minutes, ABX Indication : Surgical Prophylaxi s, 0 Trazodone 2-0 Yes 100 mg = 1 Me moria Hydrochlori 1-21 tab, PO, l de 100 MG 14:13: PRN, 0 Corey n Oral Tablet 00 Refill(s) meloxicam 2022-0 Yes 10 mg, PO, [place] [facility] 1-21 Daily, 0 l 14:13: Refill(s) [place] 00 Trazodone Yes 100 mg = 1 [facility] Hydrochlori 1-21 tab, PO, l de 100 MG 14:13: PRN, 0 Corey n Oral Tablet 00 Refill(s) meloxicam Yes 10 mg, PO, Me [facility] 1-21 Daily, 0 l 14:13: Refill(s) Ed 00 trazodone Yes 100 mg = 1 [facility] 100 mg oral -21 tab, PO, l tablet 14:13: PRN, 0 Ed 00 Refill(s) Trazodone Yes 100 mg = 1 [facility] Hydrochlori 1-21 tab, PO, l de 100 MG 14:13: PRN, 0 [place]y n Oral Tablet 00 Refill(s) meloxicam Yes 10 mg, PO, Me [facility] 1-21 Daily, 0 l 14:13: Refill(s) Trazodone Yes 100 mg = 1 [facility] Hydrochlori -21 tab, PO, l de 100 MG 14:13: PRN, 0 [place] n Oral Tablet 00 Refill(s) meloxicam Yes 10 mg, PO, Me [facility] -21 Daily, 0 l 14:13: Refill(s) trazodone Yes 100 mg = 1 [facility] 100 mg oral -21 tab, PO, l tablet 14:13: PRN, 0 Ed 00 Refill(s) aripiprazol Yes See [facility]ori a e 2 MG Oral - Instructio l Tablet 14:12: ns, PO Ed [Abilify] 00 Daily, 0 Refill(s) Buspar Yes See [facility] - Instructio l 14:12: ns, PO, 0 Ed 00 Refill(s) aripiprazol Yes See Memori a e 2 MG Oral - Instructio l Tablet 14:12: ns, PO [place] [Abilify] 00 Daily, 0 Refill(s) Buspar 2022-0 Yes See [facility] 1-21 Instructio l 14:12: ns, PO, 0 Ed 00 Refill(s) BuSpar 0 Yes See [facility] 1-21 Instructio l 14:12: ns, PO, 0 [place] 00 Refill(s) aripiprazol 0 Yes See Memori a e 2 MG Oral -21 Instructio l Tablet 14:12: ns, PO Ed [Abilify] 00 Daily, 0 Refill(s) Buspar Yes See [facility] 1-21 Instructio l 14:12: ns, PO, 0 Ed 00 Refill(s) aripiprazol Yes See Memori a e 2 MG Oral -21 Instructio l Tablet 14:12: ns, PO Ed [Abilify] 00 Daily, 0 Refill(s) Buspar Yes See [facility] 1-21 Instructio l 14:12: ns, PO, 0 [place] 00 Refill(s) BuSpar Yes See [facility] 1-21 Instructio l 14:12: ns, PO, 0 Ed 00 Refill(s) Effexor 2021-0 Yes PO, Daily, Live dana 1-21 0 l 14:11: Refill(s) [place] 00 Effexor 2021-0 Yes PO, Daily, Live dana 1-21 0 l 14:11: Refill(s) [place] 00 Effexor 2021-0 Yes PO, Daily, Live dana 1-21 0 l 14:11: Refill(s) Ed 00 Effexor 2021-0 Yes PO, Daily, Live dana 1-21 0 l 14:11: Refill(s) [place] 00 OXcarbazepi 0 Yes See Memori a ne 600 mg -21 Instructio l oral tablet 14:10: ns, 1 tab [facility] [place] 00 PO, 0 Refill(s) OXcarbazepi 0 Yes See [facility]ori a ne 600 mg -21 Instructio l oral tablet 14:10: ns, 1 tab [place] 00 PO, 0 Refill(s) OXcarbazepi 0 Yes See [facility] a ne 600 mg -21 Instructio l oral tablet 14:10: ns, 1 tab [facility] [place] 00 PO, 0 Refill(s) OXcarbazepi Yes See Memori a ne 600 mg 1-21 Instructio l oral tablet 14:10: ns, 1 tab [facility] [place] 00 PO, 0 Refill(s) oxyCODONE-a Yes 49 1{tbl} Take 1-2 UT cetaminophe 1-20 tablets by He alth n 00:00: mouth (Percocet) 00 every 4 5-325 MG (four) tablet hours if needed for severe pain. oxyCODONE-a Yes 49 1{tbl} Take 1-2 UT cetaminophe 1-20 tablets by He alth n 00:00: mouth (Percocet) 00 every 4 5-325 MG (four) tablet hours if needed for severe pain. oxyCODONE-a Yes 49 1{tbl} Take 1-2 UT cetaminophe 1-20 tablets by He alth n 00:00: mouth (Percocet) 00 every 4 5-325 MG (four) tablet hours if needed for severe pain. oxyCODONE-a Yes 49 1{tbl} Take 1-2 UT cetaminophe 1-20 tablets by He alth n 00:00: mouth (Percocet) 00 every 4 5-325 MG (four) tablet hours if needed for severe pain. oxyCODONE-a Yes 49 1{tbl} Take 1-2 UT cetaminophe 1-20 tablets by He alth n 00:00: mouth (Percocet) 00 every 4 5-325 MG (four) tablet hours if needed for severe pain. oxyCODONE-a Yes 49 1{tbl} Take 1-2 UT cetaminophe 1-20 tablets by He alth n 00:00: mouth (Percocet) 00 every 4 5-325 MG (four) tablet hours if needed for severe pain. oxyCODONE-a Yes 49 1{tbl} Take 1-2 UT cetaminophe 1-20 tablets by He alth n 00:00: mouth (Percocet) 00 every 4 5-325 MG (four) tablet hours if needed for severe pain. oxyCODONE-a Yes 49 1{tbl} Take 1-2 UT cetaminophe 1-20 tablets by He alth n 00:00: mouth (Percocet) 00 every 4 5-325 MG (four) tablet hours if needed for severe pain. oxyCODONE-a Yes 49 1{tbl} Take 1-2 UT cetaminophe 1-20 tablets by He alth n 00:00: mouth (Percocet) 00 every 4 5-325 MG (four) tablet hours if needed for severe pain. oxyCODONE-a Yes 49 1{tbl} Take 1-2 UT cetaminophe 1-20 tablets by He alth n 00:00: mouth (Percocet) 00 every 4 5-325 MG (four) tablet hours if needed for severe pain. oxyCODONE-a Yes 49 1{tbl} Take 1-2 UT cetaminophe 1-20 tablets by He alth n 00:00: mouth (Percocet) 00 every 4 5-325 MG (four) tablet hours if needed for severe pain. oxyCODONE-a Yes 49 1{tbl} Take 1-2 UT cetaminophe 1-20 tablets by He alth n 00:00: mouth (Percocet) 00 every 4 5-325 MG (four) tablet hours if needed for severe pain. oxyCODONE-a Yes 49 1{tbl} Take 1-2 UT cetaminophe 1-20 tablets by He alth n 00:00: mouth (Percocet) 00 every 4 5-325 MG (four) tablet hours if needed for severe pain. oxyCODONE-a Yes 49 1{tbl} Take 1-2 UT cetaminophe 1-20 tablets by He alth n 00:00: mouth (Percocet) 00 every 4 5-325 MG (four) tablet hours if needed for severe pain. oxyCODONE-a Yes 49 1{tbl} Take 1-2 UT cetaminophe 1-20 tablets by He alth n 00:00: mouth (Percocet) 00 every 4 5-325 MG (four) tablet hours if needed for severe pain. oxyCODONE-a Yes 49 1{tbl} Take 1-2 UT cetaminophe 1-20 tablets by He alth n 00:00: mouth (Percocet) 00 every 4 5-325 MG (four) tablet hours if needed for severe pain. oxyCODONE-a Yes 49 1{tbl} Take 1-2 UT cetaminophe 1-20 tablets by He alth n 00:00: mouth (Percocet) 00 every 4 5-325 MG (four) tablet hours if needed for severe pain. oxyCODONE-a Yes 49 1{tbl} Take 1-2 UT cetaminophe 1-20 tablets by He alth n 00:00: mouth (Percocet) 00 every 4 5-325 MG (four) tablet hours if needed for severe pain. oxyCODONE-a Yes 49 1{tbl} Take 1-2 UT cetaminophe 1-20 tablets by He alth n 00:00: mouth (Percocet) 00 every 4 5-325 MG (four) tablet hours if needed for severe pain. busPIRone 2020-04 Yes [facility] (BUSPAR) 10 2-29 [facility] MG tablet 00:00: of 00 Medicin e busPIRone 2020-04 Yes [facility] (BUSPAR) 10 2-29 College MG tablet 00:00: of 00 Medicin e aripiprazol 2020-04 Yes [facility] (ABILIFY) 2-29 College 2 MG tablet 00:00: of 00 Medicin e busPIRone 2020-04 Yes [facility] (BUSPAR) 10 2-29 College MG tablet 00:00: of 00 Medicin e busPIRone 2020-04 Yes [facility] (BUSPAR) 10 2-29 College MG tablet 00:00: of 00 Medicin e aripiprazol 2020-04- No Pardeep chow e (ABILIFY) 2-29 10-06 College 2 MG tablet 00:00: 00:00 of 00 :00 Medicin e meloxicam 2020-04 Yes [facility] (MOBIC) 15 2-26 College MG tablet 00:00: of 00 Medicin e meloxicam 2020-04- No [facility] (MOBIC) 15 2-26 10-06 College MG tablet 00:00: 00:00 of 00 :00 Medicin e folic acid 2020-04 Yes 4mg Take 4 mg [facility] (FOLVITE) 1 1-17 by mouth. Col lege MG tablet 00:00: of 00 Medicin e oxcarbazepi 2020-04 Yes 600mg Take 600 B aylor ne 1-17 mg by [facility] (TRILEPTAL) 00:00: mouth. of 600 MG 00 Medicin tablet e folic acid 2020-04 Yes 4mg Take 4 mg [facility] (FOLVITE) 1 1-17 by mouth. Col lege MG tablet 00:00: of 00 Medicin e folic acid 2020-04 Yes 4mg Take 4 mg [facility] (FOLVITE) 1 1-17 by mouth. Col lege MG tablet 00:00: of 00 Medicin e folic acid 2020-04 Yes 4mg Take 4 mg [facility] (FOLVITE) 1 1-17 by mouth. Col lege MG tablet 00:00: of 00 Medicin e oxcarbazepi 2020-04- No 600mg Take 600 [facility] ne 1-17 10-06 mg by [facility] (TRILEPTAL) 00:00: 00:00 mouth. of 600 MG 00 :00 Medicin tablet e lidocaine 2020-04- No [id number] 1mL UT (Xylocaine) 04-23 Health 1 % 15:01: 15:01 injection 1 58 :00 mL triamcinolo 2020-04- No [id number] 20mg UT ne 04-23 Health acetonide 15:01: 15:01 (Kenalog-40 58 :00 ) injection 20 mg lidocaine 2020-04- No [id number] 1mL UT (Xylocaine) 04-23 Health 1 % 15:01: 15:01 injection 1 58 :00 mL triamcinolo 2020-04- No [id number] 20mg UT ne 04-23 Health acetonide 15:01: 15:01 (Kenalog-40 58 :00 ) injection 20 mg triamcinolo 2020-04- No [id number] 20mg 20 mg, UT ne 04-23 [facility] acetonide 15:01: 15:01 cular, (Kenalog-40 58 :00 Once PRN ) injection Procedure, 20 mg Starting on Sun02/21/21 at 0901, For 1 dose lidocaine 2020-04- No [id number] 1mL 1 mL, UT (Xylocaine) 04-23 Injection, Health 1 % 15:01: 15:01 Once PRN injection 1 58 :00 Procedure, mL Starting on Sun02/21/21 at 0901, For 1 dose triamcinolo 2020-04 No [id number] 20mg 20 mg, UT ne 04-23 [facility] acetonide 15:01: 15:01 cular, (Kenalog-40 58 :00 Once PRN ) injection Procedure, 20 mg Starting on Sun02/21/21 at 0901, For 1 dose lidocaine 2020-04 No [id number] 1mL 1 mL, UT (Xylocaine) 04-23 Injection, Health 1 % 15:01: 15:01 Once PRN injection 1 58 :00 Procedure, mL Starting on Sun02/21/21 at 0901, For 1 dose No known 2020-04 No No known UT medications 04-23 medication He alth 08:36: s 13 trazodone 2020-04 Yes [facility] 1-04 College 100 MG 00:00: of tablet 00 Medicin e trazodone 2020-04 Yes [facility] 1-04 College 100 MG 00:00: of tablet 00 Medicin e trazodone 2020-04 Yes [facility] ([facility]) 1-04 College 100 MG 00:00: of tablet 00 Medicin e trazodone 2020-04 Yes [facility] 1-04 College 100 MG 00:00: of tablet 00 Medicin e traZODone 2020-04 Yes [facility] 100 mg 1-04 ity of tablet 00:00: [place] [address] Medical Branch traZODone 2020-04 Yes Univers 100 mg 1-04 ity of tablet 00:00: [place] [facility] traZODone 2020-04 Yes Univers 100 mg 1-04 ity of tablet 00:00: Medical Branch traZODone 2020-04 Yes [facility] 100 mg 1-04 ity of tablet 00:00: Medical Branch traZODone 2020-04 Yes [facility] 100 mg 1-04 ity of tablet 00:00: Medical Branch traZODone 2020-04 Yes [facility] 100 mg 1-04 ity of tablet 00:00: Medical Branch traZODone 2020-04 Yes [facility] 100 mg 1-04 ity of tablet 00:00: Medical Branch traZODone 2020-04 Yes [facility] 100 mg 1-04 ity of tablet 00:00: Medical Branch BRIVIACT 50 2020-04 Yes [facility] MG TABS 0-17 College 00:00: Medicin e BRIVIACT 50 2020-04 No [facility] MG TABS 0-17 10-06 [facility] 00:00: 00:00 of 00 :00 Medicin e Bupivicaine Bupivicaine No 2.5mg [facility] [place] 10-08 Spirit 00:00: - [facility] 00 [facility] Depo-Medrol Depo-Medrol No 40mg Common (Methylpred (Methylpred 7 S pirit nisolone) nisolone) 00:00: - C [place] 40mg 40mg 00 [facility] busPIRone Yes [facility] (BUSPAR) 1-09 College 7.5 MG 00:00: of tablet 00 Medicin e busPIRone Yes Univers 7.5 mg 1-09 ity of tablet 00:00: Medical Branch busPIRone Yes Univers 7.5 mg 1-09 ity of tablet 00:00: [facility] busPIRone Yes Univers 7.5 mg 1-09 ity of tablet 00:00: [facility] busPIRone Yes Univers 7.5 mg 1-09 ity of tablet 00:00: Medical Branch busPIRone Yes Univers 7.5 mg 1-09 ity of tablet 00:00: Medical Branch busPIRone Yes Univers 7.5 mg 1-09 ity of tablet 00:00: [place] 00 Medical Branch busPIRone 2021-0 Yes Univers 7.5 mg 1-09 ity of tablet 00:00: [place] 00 Medical Branch busPIRone 1-0 Yes Univers 7.5 mg 1-09 ity of tablet 00:00: [place] 00 Medical Branch busPIRone 2021-0 2- No [facility] (BUSPAR) 04-17 10-06 College 7.5 MG 00:00: 00:00 of tablet 00 :00 Medicin e Venlafaxine 2020-0 Yes [facility] HCl 225 MG 1-08 [place] [address] 00:00: of 00 Medicin e Venlafaxine 2020-0 Yes [facility] HCl 225 MG 08 [place] [address] 00:00: of 00 Medicin e Venlafaxine 2020-0 Yes [facility] HCl 225 MG 08 [place] [address] 00:00: of 00 Medicin e Venlafaxine 1-0 Yes [facility] HCl [address] [facility] 00:00: of 00 Medicin e Venlafaxine 2020-0 Yes Univer s 225 mg TR24 1-08 ity of 00:00: [place] 00 Medical Branch Venlafaxine 1-0 Yes Univer s 225 mg TR24 1-08 ity of 00:00: [place] 00 Medical Branch Venlafaxine 2021-0 Yes Univer s 225 mg TR24 1-08 ity of 00:00: [place] 00 Medical Branch Venlafaxine 2021-0 Yes Univer s 225 mg TR24 1-08 ity of 00:00: [place] 00 Medical Branch Venlafaxine 2021-0 Yes Univer s 225 mg TR24 1-08 ity of 00:00: [place] 00 Medical Branch Venlafaxine 2021-0 Yes Univer s 225 mg TR24 1-08 ity of 00:00: [place] 00 Medical Branch Venlafaxine 2021-0 Yes Univer s 225 mg TR24 1-08 ity of 00:00: [place] 00 Medical Branch Venlafaxine 2021-0 Yes Univer s 225 mg TR24 1-08 ity of 00:00: [place] 00 Medical Branch Venlafaxine Venlafaxine 2019-1 No 1{table QD Venlafaxin HCl ER 225 HCl ER 225 1-05 t_with_ e HCl ER MG MG 00:00: food} 225 MG 00 Betamethaso Betamethaso 2019-0 No .5mL Common ne Sodium ne Sodium 6-24 Spiri t Phosphate Phosphate 00:00: - C [place] 00 [facility] LIDOCAINE LIDOCAINE 2018-0 No 1mg Com mon HCL 10MG/ML HCL 10MG/ML 6-24 S pirit 00:00: - [facility] 00 [facility] wellbutrin wellbutrin No wellbutrin traZODone traZODone No traZODone HCl HCl HCl busPIRone busPIRone No busPIRone HCl HCl HCl Folic Acid Folic Acid No Folic Acid Bactrim Bactrim No Bactrim Tylenol # 3 Tylenol # 3 No Tylenol # 3 Mobic Mobic No Mobic Zonisamide Zonisamide No Zonisamide clonazePAM clonazePAM No 1{table QID clonazePAM 0.5 MG 0.5 MG t} 0.5 MG levETIRAcet levETIRAcet No levETIRAce am ER [address] ER 500 MG MG MG Zonisamide Zonisamide No Zonisamide PredniSONE PredniSONE No PredniSONE Vital Signs Vital Name Observation Time Observation Value Comments Source Systolic blood 2022-08-23 16:06:00 136 mm[Hg] [facility]iver [facility] Diastolic blood 2022-08-23 16:06:00 97 mm[Hg] Unive [facility] Heart rate 2022-08-23 16:00:00 87 /min [facility] Body temperature 2022-08-23 16:00:00 36.61 Yanira [facility] Respiratory rate 2022-08-23 16:00:00 16 /min [facility] Body height 2022-08-23 16:00:00 170.2 cm [facility] Body weight 2022-08-23 16:00:00 86.501 kg [facility] BMI 2022-08-23 16:00:00 29.87 kg/m2 [facility] Oxygen saturation in 2022-08-23 16:00:00 98 /min [facility] blood by [facility] Pulse oximetry Branch height 2022-02-20 13:45:00 67 [in_i] Common S pirit - [facility] weight 2022-02-20 13:45:00 204 [lb_av] [facility] temperature 2022-02-20 13:45:00 97.1 [degF] [facility] bmi 2022-02-20 13:45:00 31.95 kg/m2 [facility] pirit - [facility] blood pressure 2022-02-20 13:45:00 114 mm[Hg] [facility] - systolic [facility] blood pressure 2022-02-20 13:45:00 72 mm[Hg] [facility] - diastolic [facility] Systolic blood 2022-02-06 13:38:00 115 mm[Hg] [facility] Diastolic blood 2022-02-06 13:38:00 82 mm[Hg] [facility] Medicine Heart rate 2022-02-06 13:38:00 62 /min [facility] Body temperature 2022-02-06 13:38:00 37 Yanira [facility] Body height 2022-02-06 13:38:00 170.2 cm [facility] Body weight 2022-02-06 13:38:00 91.173 kg [facility] BMI 2022-02-06 13:38:00 31.48 kg/m2 [facility] Systolic blood 2022-01-16 14:23:00 115 mm[Hg] [facility] pressure Medicine Diastolic blood 2022-01-16 14:23:00 82 mm[Hg] [facility] Medicine Heart rate 2022-01-16 14:23:00 62 /min [facility] Body temperature 2022-01-16 14:23:00 36.83 Yanira [facility] Body height 2022-01-16 14:23:00 170.2 cm [facility] Body weight 2022-01-16 14:23:00 91.445 kg [facility] BMI 2022-01-16 14:23:00 31.58 kg/m2 [facility] Systolic blood 2022-01-12 16:08:00 118 mm[Hg] [facility] pressure Medicine Diastolic blood 2022-01-12 16:08:00 84 mm[Hg] [facility] pressure Medicine Heart rate 2022-01-12 16:08:00 62 /min [facility] Body temperature 2022-01-12 16:08:00 36.22 Yanira [facility] Respiratory rate 2022-01-12 16:08:00 16 /min [facility] Body height 2022-01-12 16:08:00 170.2 cm [facility] Body weight 2022-01-12 16:08:00 92.715 kg [facility] BMI 2022-01-12 16:08:00 32.01 kg/m2 [facility] Systolic blood 2021-04-19 15:03:00 139 mm[Hg] [facility] Medicine Diastolic blood 2021-04-19 15:03:00 91 mm[Hg] [facility] Medicine Heart rate 2021-04-19 15:03:00 76 /min [facility] Body temperature 2021-04-19 15:03:00 36.28 Yanira [facility] Body height 2021-04-19 15:03:00 170.2 cm [facility] Body weight 2021-04-19 15:03:00 86.183 [facility] BMI 2021-04-19 15:03:00 29.76 kg/m2 [facility] Body height 2021-02-21 14:35:00 [facility] 2021-02-21 14:35:00 88[facility]451 [facility] BMI 2021-02-21 14:35:00 30.54 kg[facility]m2 [facility] Systolic (mm Hg) 2022-06-27 23:20:00 [facility] Diastolic (mm Hg) 2022-06-27 23:20[facility] [place] Height 2022-06-23 15:49:00 5 [ft_i] [facility] [place] Weight 2022-06-23 15:49:00 [facility] [place] BMI Calculated 2022-06-23 15:49:00 Memori al [place] Systolic (mm Hg) 2021-07-08 21:45:00 Live [facility] Ed Diastolic (mm Hg) 2021-07-08 21:45:00 Mem orial Ed Respitory Rate 2021-07-08 21:03:00 Memori al [place] Systolic (mm Hg) 2021-07-08 21:03:00 Live rial Ed Diastolic (mm Hg) 2021-07-08 21:03:00 Mem orial Ed Respitory Rate 2021-07-08 20:53:00 Memori al Ed Systolic (mm Hg) 2021-07-08 20:53:00 Live rial Ed Diastolic (mm Hg) 2021-07-08 20:53:00 Mem orial [place] Respitory Rate 2021-07-08 20:43:00 Memori al Ed Height 2021-07-05 19:33:00 170.18 cm [facility] [place] Weight 2021-07-05 19:33:00 [facility] [place] BMI Calculated 2021-07-05 19:33:00 Mem[facility] [place] Respitory Rate 2021-04-29 19:00:00 Memori al [place] Systolic (mm Hg) 2021-04-29 19:00:00 Live rial Ed Diastolic (mm Hg) 2021-04-29 19:00:00 Mem orial Ed Systolic (mm Hg) 2021-04-29 18:45:00 Live rial [place] Diastolic (mm Hg) 2021-04-29 18:45:00 Mem orial [place] Respitory Rate 2021-04-29 18:45:00 Memori al [place] Respitory Rate 2021-04-29 18:30:00 Memori al [place] Systolic (mm Hg) 2021-04-29 18:30:00 Live rial Ed Diastolic (mm Hg) 2021-04-29 18:30:00 Mem orial [place] Height 2021-04-27 15:46:00 170.18 cm [facility] Weight 2021-04-27 15:46:00 [facility] BMI Calculated 2021-04-27 15:46:00 Memori al [place] Procedures Procedure Date / Time Performing Clinician Source Performed POCT URINALYSIS 2022-08-23 16:36[facility] TEST 2022-08-23 16:36:00 Cindy Escudero [facility] Medical Branch POCT SARS-COV-2 ANTIGEN 2022-08-23 16:18:00 Cindy Escudero [facility] (BINAX NOW) Medical Branch ASSIGNMENT OF BENEFITS 2022-08-23 16:00:59 Doctor Unassigned, [facility] Medical Branch AUTHORIZATION FOR RELEASE 2022-06-28 05:01:00 Doctor Unassigned, [facility] Name Medical Branch [place] ARTHROCENTESIS 2022-05-01 14:30:00 [facility] ASPIR&/INJ SMALL JT/BURSA W/O US AMB REF TO [facility] 2022-02-06 08:52:25 [facility] SC ARTHROCENTESIS 2021-09-15 20:08:38 [facility] ASPIR&/INJ SMALL JT/BURSA W/O US CBC AND DIFFERENTIAL 2021-07-04 17:54:00 [facility] th SEDIMENTATION RATE, 2021-07-04 17:54:00 [facility] Healt h AUTOMATED CAST APPLICATION 2021-06-06 17:52:39 [facility] CAST APPLICATION 2021-05-30 16:25:44 [facility] ARTHROCENTESIS ASPIR&/INJ 2021-02-21 15:01:58 [facility] SMALL JT/BURSA W/O US BILATERAL XR FINGERS 2+ VIEWS RIGHT 2021-02-21 14:45:33 [facility] XR FINGERS 2+ VIEWS LEFT 2021-02-21 14:45:17 [facility] Removal of gallbladder [facility] Trapeziectomy [facility] Plan of Care Planned Activity Planned Date Details Comments Source Future Scheduled 2022-02-06 Screening for malignant [facility] of Test 08:39:40 neoplasm of colon Medicine (procedure) [code = 213259592] Future Scheduled 2022-02-06 Screening for malignant [facility] of Test 08:39:40 neoplasm of breast Medicine (procedure) [code = 408099293] Future Scheduled 2022-02-06 COVID-19 Vaccine (#1) [facility] of Test 08:39:40 [code = COVID-19 Vaccine Med icine (#1)] Future Scheduled 2022-02-06 BMI FOLLOW UP PLAN [code [facility] of Test 08:39:40 = BMI FOLLOW UP PLAN] Medici ne Future Scheduled 2022-02-06 Hepatitis C screening [facility] of Test 08:39:40 (procedure) [code = Medicine 266781232] Future Scheduled 2022-02-06 Human immunodeficiency B [facility] of Test 08:39:40 virus screening Medicine (procedure) [code = 994814516] Future Scheduled 2022-02-06 Screening for malignant [facility] of Test 08:39:40 neoplasm of cervix Medicine (procedure) [code = 308117986] Future Scheduled 2022-02-06 FLU VACCINE > 6 MONTHS B [facility] of Test 08:39:40 [code = FLU VACCINE > 6 Medi cine MONTHS] Future Scheduled 2022-02-06 TETANUS SHOT (ADULT) [facility] of Test 08:39:40 [code = TETANUS SHOT Medicin e (ADULT)] Future Scheduled 2022-01-16 Screening for malignant [facility] of Test 08:43:20 neoplasm of colon Medicine (procedure) [code = 957253450] Future Scheduled 2022-01-16 Screening for malignant [facility] Test 08:43:20 neoplasm of breast Medicine (procedure) [code = 617820796] Future Scheduled 2022-01-16 COVID-19 Vaccine (#1) [facility] of Test 08:43:20 [code = COVID-19 Vaccine Med icine (#1)] Future Scheduled 2022-01-16 BMI FOLLOW UP PLAN [code [facility] Test 08:43:20 = BMI FOLLOW UP PLAN] Medici ne Future Scheduled 2022-01-16 Hepatitis C screening [facility] of Test 08:43:20 (procedure) [code = Medicine 297939595] Future Scheduled 2022-01-16 Human immunodeficiency B [facility] of Test 08:43:20 virus screening Medicine (procedure) [code = 452429582] Future Scheduled 2022-01-16 Screening for malignant [facility] Test 08:43:20 neoplasm of cervix Medicine (procedure) [code = 530248020] Future Scheduled 2022-01-16 FLU VACCINE > 6 MONTHS B [facility] of Test 08:43:20 [code = FLU VACCINE > 6 Medi cine MONTHS] Future Scheduled 2022-01-16 TETANUS SHOT (ADULT) [facility] Test 08:43:20 [code = TETANUS SHOT Medicin e (ADULT)] Future Scheduled 2022-01-12 Screening for malignant [facility] of Test 12:19:41 neoplasm of colon Medicine (procedure) [code = 003515106] Future Scheduled 2022-01-12 Screening for malignant [facility] Test 12:19:41 neoplasm of breast Medicine (procedure) [code = 613797570] Future Scheduled 2022-01-12 COVID-19 Vaccine (#1) [facility] Test 12:19:41 [code = COVID-19 Vaccine Med icine (#1)] Future Scheduled 2022-01-12 BMI FOLLOW UP PLAN [code [facility] Test 12:19:41 = BMI FOLLOW UP PLAN] Medici ne Future Scheduled 2022-01-12 Hepatitis C screening [facility] Test 12:19:41 (procedure) [code = Medicine 837752471] Future Scheduled 2022-01-12 Human immunodeficiency B [facility] Test 12:19:41 virus screening Medicine (procedure) [code = 809175604] Future Scheduled 2022-01-12 Screening for malignant [facility] Test 12:19:41 neoplasm of cervix Medicine (procedure) [code = 078195730] Future Scheduled 2022-01-12 FLU VACCINE > 6 MONTHS B [facility] Test 12:19:41 [code = FLU VACCINE > 6 Medi cine MONTHS] Future Scheduled 2022-01-12 TETANUS SHOT (ADULT) [facility] of Test 12:19:41 [code = TETANUS SHOT Medicin e (ADULT)] Future Scheduled 2021-04-20 Screening for malignant [facility] of Test 09:07:39 neoplasm of colon Medicine (procedure) [code = 847731327] Future Scheduled 2021-04-20 Screening for malignant [facility] Test 09:07:39 neoplasm of breast Medicine (procedure) [code = 340742663] Future Scheduled 2021-04-20 COVID-19 Vaccine (1) [facility] Test 09:07:39 [code = COVID-19 Vaccine Med icine (1)] Future Scheduled 2021-04-20 TETANUS SHOT (ADULT) [facility] 09:07:39 [code = TETANUS SHOT Medicin e (ADULT)] Future Scheduled 2021-04-20 BMI FOLLOW UP PLAN [code [facility] Test 09:07:39 = BMI FOLLOW UP PLAN] Medici ne Future Scheduled 2021-04-20 Hepatitis C screening [facility] 09:07:39 (procedure) [code = Medicine 290641413] Future Scheduled 2021-04-20 Human immunodeficiency B [facility] 09:07:39 virus screening Medicine (procedure) [code = 133298336] Future Scheduled 2021-04-20 Screening for malignant [facility] 09:07:39 neoplasm of cervix Medicine (procedure) [code = 560658883] Future Scheduled 2021-04-20 FLU VACCINE > 6 MONTHS B [facility] 09:07:39 [code = FLU VACCINE > 6 Medi cine MONTHS] Encounters Start End Encounter Admission Attending Care Care Encounter Source Date/Time Date/Time Type Type Clinicians Facility Department ID 2022-08-24 Outpatient [facility] [id number] [place] 21:22:46 [id number] [facility] 2022-07-18 Outpatient [facility] [id number] [place] 07:55:30 [id number] [facility] 2022-06-23 Outpatient [facility] [id number] [place] 10:10:00 [id number] [facility] 2022-05-01 Outpatient [facility] [id number] [place] 07:57:58 [id number] [facility] 2022-04-25 Outpatient [facility] [id number] [place] 14:17:26 [id number] [facility] 2022-02-20 Outpatient [place], [facility] [id number] Common 13:43:[address] [place] [address] [place] [address] 2022-01-20 Outpatient [facility] [id number] [place] 14:32:40 [id number] [facility] 2021-05-30 [facility] [id number] [place] 10:28:27 [facility] 2021-05-24 Outpatient PETE, [facility] [id number] [place] 09:21:40 [facility] 2021-05-19 Outpatient MANSSHAWNEE, [facility] [id number] [place] 12:08:03 [facility] 2021-05-13 Outpatient [facility] [id number] [place] 14:27:45 [facility] 2021-05-04 [facility] Car[facility] [id number] Common 13:21:58 Gaston Mathis [facility] 2021-05-04 [facility] [id number] Common 13:17:10 Gaston Walker [facility] 2021-04-18 Outpatient [facility] [id number] [place] 14:08:37 [facility] 2021-02-21 Outpatient [facility] [id number] [place] 08:37:12 [facility] 2021-02-21 Outpatient [facility] [id number] [place] 08:37:12 [facility] 2022-09-20 2022-09-20 Outpatient PETE, [facility] [id number] [place] 08:45:00 08:45:00 [facility] 2022-08-23 2022-08-23 Outpatient Jacy ESCUDERO [facility] [id number] Univers 11:20:00 11:46:12 CINDY ity of [facility] 2022-08-23 2022-08-23 Urgent Cindy Escudero [facility] 1.2.840.114 1 [id number] Univers 11:20:00 11:46:12 Care Unknown, [facility] 350.1.13.10 ity of [place] 4.2.7.2.686 Gerry as MARY?BLEA [phone] [place] dical [address] MEDICAL OFFICE BUILDING 2022-08-23 2022-08-23 Orders Doctor CHALO 1.2.840.114 [id number] Univers 00:00:00 00:00:00 Only Unassigned, MEENA 350.1.13.10 ity of [place] [facility] 4.2.7.2.686 Gerry as [id number] [address] 2022-08-23 2022-08-23 Letter Provider, [facility] 1.2.134.078 [id number] Univers 00:00:00 00:00:00 (Out) [facility] 350.1.13.10 it y of Urgent Care [place] 4.2.7.2.686 [place] MARY?BLEA [phone] [address] MEDICAL OFFICE [facility] 2022-08-09 2022-08-09 Office ESTEFANIA Llanes [facility] 1.2.829.191 [id number] [place] 08:30:00 09:22:14 Visit Annetta ORTHO AND 350.1.13.58 Health [place] 9.2.7.2.686 MEDICAL [id number] [place] 2 2022-07-11 2022-07-11 Outpatient JACQUIE, [facility] [id number] [place] 10:45:00 11:26:40 ANNETTA Health 2022-06-28 2022-06-28 Orders Doctor CHALO 1.2.840.114 [id number] [facility] 00:00:00 00:00:00 Only Unassigned, MEENA 350.1.13.[address] [place] [facility] 4.2.7.2.686 Gerry as [phone] [address] 2022-06-27 2022-06-27 Day [facility] [id number] Memoria 17:54:00 23:35:[address] 2022-06-27 2022-06-27 Day [facility] [id number] Memoria 17:54:00 23:35:[address] 2022-06-27 2022-06-27 Outpatient JAIMESHAWNEE, MHBL MHBL [id number] MHBL 12:54:00 18:35:00 ATHOL 2022-06-27 2022-06-27 Outpatient Pete, MHPL [id number] 12:54:00 18:35:[address] 2022-06-20 2022-06-20 Office Pete [facility] 1.2.840.114 [id number] [place] 09:00:00 09:45:16 Visit Chirag JACOBS 350.1.13.58 [facility] MEDICAL 9.2.7.2.686 PLA[place] 3 [id number] 5 2022-06-20 2022-06-20 Outpatient [facility] [id number] [place] 09:00:00 09:44:40 Health 2022-06-19 2022-06-19 Outpatient PETE, [facility] [id number] [place] 09:00:00 09:00:00 [facility] 2022-05-15 2022-05-15 Outpatient [facility] [id number] [place] 09:15:00 09:56:29 Health 2022-05-15 2022-05-15 Office ESTEFANIA Llanes [facility] 1.2.617.940 [id number] [place] 09:15:00 09:56:17 Visit Annetta [facility] 350.1.13.58 H [facility] MEDICAL 9.2.7.2.686 PLAZA 8 [id number] 5 2022-05-01 2022-05-01 Outpatient [facility] [id number] [place] 08:35:00 09:19:05 Health 2022-05-01 2022-05-01 Outpatient [facility] [id number] [place] 08:15:00 09:18:51 Health 2022-05-01 2022-05-01 Office ESTEFANIA Llanes [facility] 1.2.249.878 [id number] [place] 08:30:00 09:15:26 Visit Annetta [facility] 350.1.13.58 H [facility] 9.2.7.2.686 PLAZA 2 [id number] 5 2022-02-20 2022-02-20 [facility] [id number] Co mmon 00:00:00 00:00:00 VISIT Spirit ESTAB PT - CHI LEVEL 4 [facility] 2022-02-06 2022-02-06 Office WYATT CORRALES 1.2.840.114 [id number] [facility] 08:25:42 14:14:27 Visit ROSA AMBULATOR 350.1.13.21 College Y 0.2.7.2.686 of [id number] [facility] uzma 805 e 2022-01-30 2022-01-30 Outpatient KENAN HAMILTON [facility] [id number] [facility] 12:40:00 12:40:[address] [facility] 2022-01-16 2022-01-16 Office WYATT CORRALES 1.2.840.114 [id number] [facility] 09:13:33 15:19:07 Visit ROSA AMBULATOR 350.1.13.21 College Y 0.2.7.2.686 of [id number] [facility] 805 e 2022-01-16 2022-01-16 Outpatient [facility] [id number] [place] 12:10:00 13:50:30 Health 2022-01-16 2022-01-16 Office Jacquie ESTEFANIA [facility] 1.2.140.361 [id number] [place] 11:30:00 13:50:21 Visit Annetta JACOBS 350.1.13.58 H [facility] MEDICAL 9.2.7.2.686 PLAZA 2 [id number] 2022-01-12 2022-01-12 Office Petar PORFIRIOYuni 1.2.840.114 100 [id number] [facility] 11:00:00 11:57:43 Visit Rosa Tripp AMBULATOR 350.1.13.21 College Y 0.2.7.2.686 of [id number] [facility] 805 2021-10-26 2021-10-26 Production Weigher Draw, Clc-Bls Lab [facility] 1.2.8 40.114 [id number] Univers 13:45:00 14:28:39 Visit Kenan Gregory [facility] 350.1.13.10 ity of [place] 4.2.7.2.686 [facility] basil [place] [id number] [address] OFFICE BUILDING 2021-10-26 2021-10-26 Outpatient KENAN HAMILTON [facility] [id number] Univers 13:45:00 13:45:[address] [facility] 2021-09-30 2021-09-30 Outpatient Jacy HARRELL [facility] [id number] Univers 13:20:00 13:20:[address] [facility] 2021-09-30 2021-09-30 Outpatient Jacy HARRELL [facility] [id number] Univers 13:20:00 13:20:[address] [facility] 2021-09-26 2021-09-26 Outpatient R KENAN GREGORY [facility] 001 [id number] Univers 13:40:00 13:40:[address] [facility] 2021-09-152021-09-15 Office ESTEFANIA Freeman [facility] 1.2.840.114 [id number] [place] 13:30:00 14:36:43 Visit Chirag MENIFEE 350.1.13.58 H [facility] MEDICAL 9.2.7.2.686 PLA[place] 6 [id number] 5 2021-08-04 2021-08-04 Office ESTEFANIA Freeman [facility] 1.2.840.114 [id number] [place] 08:00:00 08:40:09 Visit Chirag MENIFEE 350.1.13.58 H [facility] 9.2.7.2.686 PLAZA 1 [id number] 5 2021-07-29 2021-07-29 Outpatient Jacy STEPHEN [facility] [id number] [facility] 09:40:00 09:40:00 ROSHNI liriano [facility] 2021-07-21 2021-07-21 Office Pete [facility] 1.2.840.114 [id number] [place] 07:30:00 08:29:45 Visit Chirag MENIFEE 350.1.13.58 H [facility] 9.2.7.2.686 PLAZA 3 [id number] 5 2021-07-08 2021-07-09 Day [facility] [id number] Memoria 16:41:00 04:59:00 Surgery r Ed 01 l Orthopedic [facility] 2021-07-08 2021-07-09 Day [facility] [id number] Memoria 16:41:00 04:59:00 Surgery r Ed 01 l [facility] 2021-07-08 2021-07-08 Outpatient PETE SAIMA [facility] [id number] MH 11:41:00 23:59:00 ATHOL [facility] 2021-07-08 2021-07-08 Outpatient Pete SAIMA [facility] [id number] 11:41:00 23:59:[address] 2021-07-08 2021-07-08 Outpatient Pete [facility] [id number] 11:41:00 23:59:[address] 2021-07-04 2021-07-04 Office ESTEFANIA Freeman [facility] 1.2.840.114 [id number] [place] 07:30:00 08:27:04 Visit Chirag JACOBS 350.1.13.58 H [facility] MEDICAL 9.2.7.2.686 PLA[place] 9 [id number] 5 2021-06-26 2021-06-26 Telephone Kenan Gregory [facility] 1.2.840.11 [id number] Univers 00:00:00 00:00:00 S HEALTH 350.1.13.10 i ty of CL[place]ICS [place].2.[place] [id number] [facility] [address] 2021-06-20 2021-06-20 Office ESTEFANIA Llanes [facility] 1.2.941.170 [id number] [place] 10:00:00 12:25:32 Visit Annetta JACOBS 350.1.13.58 H [facility] MEDICAL 9.2.7.2.686 PLA[place] 0 [id number] 5 2021-06-18 2021-06-18 Nurse CHALO Ruiz 1.2.840.114 [id number] Univers 00:00:00 00:00:00 Triage Quyneshia L MEENA 350.1.13.[address] [facility] 4.2.7.2.686 Gerry as [phone] [facility] [address] 2021-06-18 2021-06-18 CHALO Araujo 1.2.840.114 [id number] Univers 00:00:00 00:00:00 Triage Quyneshia L MEENA 350.1.13.10 ity [facility] 4.2.7.2.686 [place]erry as [id number] [facility] [address] 2021-06-18 2021-06-18 CHALO Araujo 1.2.840.114 [id number] Univers 00:00:00 00:00:00 Triage Quyneshia L MEENA 350.1.13.[address] [facility] 4.2.7.2.686 [place] [id number] [facility] [address] 2021-06-18 2021-06-18 CHALO Araujo 1.2.840.114 [id number] Univers 00:00:00 00:00:00 Triage Quyneshia L MEENA 350.1.13.[address] [facility] 4.2.7.2.686 Gerry as [id number] [facility] [address] [place] 2021-06-17 2021-06-17 Emergency X MARQUEZ [facility] ERT [id number] Univers 16:56:00 21:25:[address] [facility] 2021-06-17 2021-06-17 Emergency AmitaRenata [facility] 1.2.8 40.114 [id number] Univers 16:56:00 21:25:00 Erin Mcintyre [place] 350.1.13.10 it[place] of [place] [id number] [address] 2021-06-17 2021-06-17 Emergency X AMITA [facility] ERT [id number] Univers 16:56:00 16:56:[address] [facility] 2021-06-17 2021-06-17 Patient Kenan Gregory [facility] 1.2.840.114 [id number] Univers 00:00:00 00:00:00 Secure Msg S HEALTH 350.1.13.10 it[place] [id number] [address] OFFICE BUILDING 2021-06-17 2021-06-17 Patient Kenan Gregory [facility] 1.2.840.114 [id number] Univers 00:00:00 00:00:00 Secure Msg S HEALTH 350.1.13.10 it[place] of [place]2.[place] [id number] [address] OFFICE BUILDING 2021-06-17 2021-06-17 Patient Kenan Gregory [facility] 1.2.840.114 [id number] Univers 00:00:00 00:00:00 Secure Msg S HEALTH 350.1.13.10 it[place] of [place] [id number] [address] OFFICE BUILDING 2021-06-17 2021-06-17 Patient Kenan Gregory [facility] 1.2.840.114 [id number] Univers 00:00:00 00:00:00 Secure Msg S HEALTH 350.1.13.10 it[place] [id number] [address] OFFICE BUILDING 2021-06-17 2021-06-17 Patient Kenan Gregory [facility] 1.2.840.114 [id number] Univers 00:00:00 00:00:00 Secure Msg S HEALTH 350.1.13.10 ity of [place]2.[place] [id number] [address] OFFICE [facility] 2021-06-15 2021-06-15 Production Weigher Draw, Clc-Bls Lab [facility] 1.2.8 40.114 [id number] [facility] 09:30:00 09:45:00 Visit Kenan Gregory HEALTH 350.1.13.10 ity of [place]2.[place].2.[place] [id number] [address] OFFICE BUILDING 2021-06-15 2021-06-15 Outpatient R KENAN GREGORY [facility] [id number] Univers 09:30:00 09:30:00 ity of [facility] 2021-06-15 2021-06-15 Outpatient R BRIKENAN [facility] [id number] Univers 09:30:00 09:30:00 ity of [facility] 2021-06-15 2021-06-15 Office BriKenan [facility] 1.2.840.114 [id number] Univers 09:00:00 09:23:43 Visit S HEALTH 350.1.13.10 it y of [place]2.[place] [id number] [address] OFFICE BUILDING 2021-06-15 2021-06-15 Orders Doctor CHALO 1.2.840.114 [id number] Univers 00:00:00 00:00:00 Only Unassigned, MEENA 350.1.13.10 ity of [place] [facility] 4.2.7.2.686 Gerry as [id number] [address] 2021-06-15 2021-06-15 Telephone Kenan Gregory [facility] 1.2.840.114 [id number] [facility] 00:00:00 00:00:00 S [facility] 350.1.13.10 it y of [place] 4.2.7.2.686 [place] [id number] [place] [id number] [place] OFFICE BUILDING 2021-06-13 2021-06-13 Outpatient R KENAN GREGORY [facility] [id number] [facility] 13:00:00 13:00:00 ity of [facility] 2021-06-13 2021-06-13 Office Pete [facility] 1.2.840.114 [id number] [place] 07:30:00 09:16:24 Visit Chirag JACOBS 350.1.13.58 [facility] MEDICAL 9.2.7.2.686 PLA[place] 9 [id number] 5 2021-06-06 2021-06-06 Office Pete [facility] 1.2.840.114 [id number] [place] 10:30:00 11:59:07 Visit Chirag JACOBS 350.1.13.58 [facility] MEDICAL 9.2.7.2.686 PLAZA 1 [id number] 5 2021-05-30 2021-05-30 Office Pete [facility] 1.2.840.114 [id number] [place] 09:00:00 10:28:25 Visit Chirag JACOBS 350.1.13.58 H ealt MEDICAL 9.2.7.2.686 PLAZA 4 [id number] 5 2021-05-24 2021-05-24 Office Jacquie [facility] 1.2.761.248 [id number] [id number] [place] 09:00:00 09:22:14 Visit Annetta JACOBS 350.1.13.58 H ealt MEDICAL 9.2.7.2.686 PLAZA 5 [id number] 5 2021-05-19 2021-05-19 Office Pete [facility] 1.2.840.114 [id number] [place] 12:00:00 12:08:30 Visit Chirag JACOBS 350.1.13.58 H ealt MEDICAL 9.2.7.2.686 PLAZA 8 [phone] 5 2021-05-12 2021-05-12 Office ESTEFANIA Freeman [facility] 1.2.840.114 [id number] [place] 12:00:00 12:27:47 Visit [facility] 350.1.13.58 H [facility] MEDICAL 9.2.7.2.686 PLAZA 9 [id number] 5 2021-05-06 2021-05-06 Telephone ESTEFANIA Llanes 6400 1.2.840.114 1 [id number] [place] 00:00:00 00:00:00 Annettawai [place] 350.1.13.58 Health 9.2.7.2.686 [id number] 5 2021-05-05 2021-05-05 Office ESTEFANIA Freeman [facility] 1.2.840.114 [id number] [place] 13:45:00 13:56:10 Visit [facility] 350.1.13.58 H [facility] MEDICAL 9.2.7.2.686 PLAZA 1 [id number] 5 2021-04-29 2021-04-30 Day [facility] [id number] Memoria 12:50:00 05:59:00 Surgery r [place] 00 l Orthopedic [facility] 2021-04-29 2021-04-30 Day [facility] [id number] Memoria 12:50:00 05:59:00 Surgery r Ed 00 l [facility] 2021-04-29 2021-04-29 Outpatient PETE [facility] [id number] 06:50:00 23:59:00 ATHOL [facility] 2021-04-29 2021-04-29 Outpatient Pete [facility] [id number] 06:50:00 23:59:[address] 2021-04-29 2021-04-29 Outpatient Pete [facility] [id number] 06:50:00 23:59:00 [place] [address] [place] 2021-04-19 2021-04-19 Office WYATT CORRALES 1.2.840.114 [id number] [facility] 08:57:47 10:15:41 Visit ROSA AMBULATOR 350.1.13.21 College Y 0.2.7.2.686 of [id number] [facility] 805 e 2021-04-18 2021-04-18 Office ESTEFANIA Freeman [facility] 1.2.840.114 [id number] [place] 13:45:00 15:10:35 Visit Chirag JACOBS 350.1.13.58 H [facility] MEDICAL 9.2.7.2.686 PLAZA 3 [id number] 5 2021-02-24 2021-02-24 Telephone Kenan Gregory [facility] 1.2.840.11 4 [id number] Univers 00:00:00 00:00:00 S Y HEALTH 350.1.13.10 i ty of CL[place]ICS 4[place].2.[place] [id number] [address] 2021-02-24 2021-02-24 Telephone Kenan Gregory [facility] 1.2.840.114 [id number] Univers 00:00:00 00:00:00 S HEALTH 350.1.13.10 it y of [place]2.[place] [id number] [address] OFFICE BUILDING 2021-02-23 2021-02-23 Outpatient R KENAN GREGORY [facility] [id number] Univers 12:00:00 12:00:00 ity of [facility] 2021-02-23 2021-02-23 Production Weigher Draw, Clc-Bls Lab [facility] 1.2.8 40.114 [id number] Univers 11:44:53 11:59:53 Visit Kenan Gregory HEALTH 350.1.13.10 ity of [place] [id number] [address] OFFICE BUILDING 2021-02-23 2021-02-23 Office Kenan Gregory [facility] 1.2.840.114 [id number] Univers 11:21:16 11:51:16 Visit S HEALTH 350.1.13.10 it y of [place].2.[place] [id number] [address] OFFICE BUILDING 2021-02-23 2021-02-23 Outpatient R KENAN GREGORY [facility] [id number] Univers 11:30:00 11:30:00 ity of [facility] 2021-02-21 2021-02-21 Office ESTEFANIA FREEMAN [facility] 1.2.840.114 [id number] [place] 08:04:19 08:34:19 Visit CHIRAG JACOBS 350.1.13.58 [facility] MEDICAL 9.2.7.2.686 PLAZA 7 [id number] 2021-02-08 2021-02-08 Refill Kenan Gregory [facility] 1.2.840.114 [id number] Univers 00:00:00 00:00:00 S HEALTH 350.1.13.10 it y of [place] [id number] [address] OFFICE BUILDING 2021-02-08 2021-02-08 Patient Kenan Gregory [facility] 1.2.840.114 [id number] Univers 00:00:00 00:00:00 Secure Msg S HEALTH 350.1.13.10 ity of [place] [phone] [address] OFFICE BUILDING 2021-01-31 2021-01-31 Transition Emeli Mas 1.2.840.114 [id number] Univers 00:00:00 00:00:00 of Care Joelle Scotty 350.1.13.10 i ty of [place] 4.2.7.2.[place] [id number] [place] [address] [address] 2021-01-24 2021-01-28 Hospital Kenan Gregory 1.2.840.114 [id number] Univers 08:41:00 11:59:00 Encounter Kiet James 350.1.13 .10 ity of [facility] 4.2.7.2.686 [place] [id number] [address] 2021-01-24 2021-01-28 Inpatient R LESLEY [facility] EDIN [id number] Univers 08:41:00 11:59:00 [facility] ity o f [facility] 2021-01-21 2021-01-21 Laboratory Only, Adc Test [facility] 1.2.840. 114 [id number] Univers 09:53:15 10:08:15 Only BriKenan 350.1.13.10 ity of [place].2.[place] [id number] [facility] [address] 2021-01-21 2021-01-21 Outpatient R KENAN GREGORY [facility] [id number] Univers 10:00:00 10:00:00 ity of [facility] 2021-01-21 2021-01-21 Orders Doctor CHALO 1.2.840.114 [id number] Univers 00:00:00 00:00:00 Only Unassigned, MEENA 350.1.13.10 ity of [place] [facility] 4.2.7.2.686 Gerry as [id number] [address] 2021-01-19 2021-01-19 Telephone Kenan Gregory [facility] 1.2.840.114 [id number] Univers 00:00:00 00:00:00 S Health 350.1.13.10 it y [place] [id number] [facility] [address] Office Building 2021-01-17 2021-01-17 Hospital Kenan Gregory [facility] 1.2.840.114 [id number] Univers 14:29:06 23:59:00 Encounter S Shadia 350.1.13.10 ity of [place]2.[place].2.[place] [id number] [facility] [address] 2021-01-17 2021-01-17 Outpatient R KENAN GREGORY [facility] [id number] Univers 00:00:00 00:00:00 ity of [facility] 2021-01-17 2021-01-17 Orders Doctor ISABEL 1.2.840.114 [id number] Univers 00:00:00 00:00:00 Only Unassigned, MEENA 350.1.13.10 ity of [place] [facility] 4.2.7.2.686 Gerry as [id number] [facility] [address] [place] 2020-12-23 2020-12-23 Outpatient R BRIKENAN [facility] [id number] [facility] 12:30:00 12:30:00 ity of [facility] 2020-12-23 2020-12-23 Production Weigher Letty Adc Lab Main [facility] 1.2.8 40.114 [id number] [facility] 12:01:14 12:16:14 Visit Kenan Gregory [place] 350.1.13.10 ity of [place]2.[place].2.[place] [id number] [address] 2020-12-22 2020-12-22 Telephone Kenan Gregory [facility] 1.2.840.114 [id number] Univers 00:00:00 00:00:00 S Health 350.1.13.10 it [place] [id number] [address] Office Building 2020-12-20 2020-12-20 Production Weigher Draw, Clc-Bls Lab [facility] 1.2.8 40.114 [id number] Univers 16:01:23 16:16:23 Visit Unknown, Attending Health 350.1.13.10 ity of [place] [phone] [address] Office Building 2020-12-20 2020-12-20 Production Weigher Draw, Clc-Bls Lab [facility] 1.2.8 40.114 [id number] Univers 16:01:23 16:16:23 Visit Unknown, Attending Health [id number] [place] [phone] [address] Office Building 2020-12-20 2020-12-20 Office Kenan Gregory [facility] 1.2.840.114 [id number] Univers 15:02:19 15:59:58 Visit S Health 350.1.13.10 [place] [phone] [address] Office Building 2020-12-20 2020-12-20 Office Kenan Gregory [facility] 1.2.840.114 [id number] Univers 15:02:19 15:59:58 Visit S Health 350.1.13.10 [place] [phone] [address] Office [facility] 2020-12-20 2020-12-20 Sadaf R KENAN GREGORY [facility] [id number] Univers 15:00:00 15:00:00 ity of [facility] 2020-12-20 2020-12-20 Kenan Downs [facility] 1.2.840.114 [id number] Univers 00:00:00 00:00:00 (Out) S Health 350.1.13.10 [place] [phone] [address] Office [facility] 2020-12-20 2020-12-20 Kenan Downs [facility] 1.2.840.114 [id number] Univers 00:00:00 00:00:00 (Out) S Health 350.1.13.10 [place] [phone] [address] Office [facility] 2020-12-16 2020-12-[address] [facility] 1.2.840.114 [id number] Univers 00:00:00 00:00:00 Fabian Ren[place] 350.1.13.10 [place] [phone] [address] 2020-12-16 2020-12-[address] [facility] 1.2.840.114 [id number] Univers 00:00:00 00:00:00 Fabian [place] 350.1.13.10 [place] [phone] [address] 2020-10-21 2020-10-21 [facility] 1.2.840.114 [id number] Univers 00:00:00 00:00:00 Fabian [place] 350.1.13.10 [place] [phone] [address] 2020-09-10 2020-09-10 Telephone Tracey [facility] 1.2.840.114 [id number] Univers 00:00:00 00:00:00 Fabian Sae [place] 350.1.13.10 [place] [phone] [address] 2020-09-03 2020-09-03 Refill Tracey [facility] 1.2.840.114 [id number] Univers 00:00:00 00:00:00 Fabian Quevedo Shadia 350.1.13.10 [place] [phone] [address] 2020-09-03 2020-09-03 Refill Doctor [facility] 1.2.840.114 [id number] Univers 00:00:00 00:00:00 UnassignedShadia 350.1.13.10 ity [place] [phone] [address] 2020-08-31 2020-08-31 [facility] 1.2.840.114 [id number] Univers 00:00:00 00:00:00 Fabian [place] 350.1.13.10 [place] [phone] [address] 2020-07-21 2020-07-21 Telephone Tracey [facility] 1.2.840.114 [id number] Univers 00:00:00 00:00:00 Fabian Ren[place] 350.1.13.10 [place] [phone] [address] 2020-07-13 2020-07-13 Outpatient FABIAN HICKS [facility] [id number] Univers 15:40:00 15:40:[address] [facility] 2020-07-13 2020-07-13 Office Tracey [facility] [id number] Univers 14:28:20 15:00:19 Visit Fabian [place] [id number] [id number] [phone] [place] 092 [facility] 2020-07-13 2020-07-13 Telephone Tracey [facility] [id number] Univers 00:00:00 00:00:00 Fabian [place] [id number] [id number] [phone] [place] [address] 2020-06-24 2020-06-24 Patient Shoaib [facility] [id number] Univers 00:00:00 00:00:00 Outreach Benito [facility] [id number] i ty of [facility] [id number] [phone] [address] 2020-06-14 2020-06-14 [facility] [id number] Univers 09:43:38 10:23:57 Visit Fabian [place] [id number] [id number] [phone] [place] [address] 2020-06-14 2020-06-14 Outpatient R FABIAN WEBB [facility] [id number] Univers 09:40:00 09:40:[address] ithéctor [facility] 2020-06-14 2020-06-14 Letter Tracey [facility] [id number] Univers 00:00:00 00:00:00 (Out) Fabian [place] [id number] [id number] [phone] [place] [address] [place] [address] 2020-06-01 2020-06-01 Telephone Tracey [facility] [id number] Univers 00:00:00 00:00:00 Fabian [place] [id number] [id number] [phone] [facility] 092 [facility] 2020-05-19 2020-05-19 Outpatient R FABIAN WEBB [facility] [id number] Univers 10:00:00 10:00:[address] [facility] 2020-05-01 2020-05-01 Outpatient R [facility] [id number] Univers 10:00:00 10:00:[address] [facility] 2020-05-01 2020-05-01 Laboratory Lab, [facility] Fam Pob I [facility] 1.2. [id number] Univers 09:39:25 09:59:25 Only HYGIEIA [id number] ity of [place] [id number] [place] as Professio [phone] [facility] [address] 2020-04-19 2020-04-19 Office Tracey [facility] [id number] Univers 08:47:49 09:29:03 Visit Fabian [place] [id number] [id number] [phone] [facility] 092 [facility] 2020-04-19 2020-04-19 Outpatient R FABIAN WEBB [facility] [id number] Univers 08:40:00 08:40:[address] [facility] 2020-04-19 2020-04-19 Letter Tracey [facility] [id number] Univers 00:00:00 00:00:00 (Out) Fabian [place] [id number] [id number] [phone] [address] Results Test Description Test Time Test Comments Results Result Comments Source POCT URINALYSIS W SPECIFIC GRAVITY 2022-08-23 16:37:00 Test Item Value Reference Range Interpretation Comme nts POCT U SP GRAV (test code = 3255) 1.000 mg/dl 1.005-1.025 A POCT PH U (test code = 3254) 5 mg/dl 5-8 POCT U LEUK EST (test code = 3263) 2+ Negative - Negative POCT U NIT (test code = 3262) Positive Negative - Negative POCT U PROT (test code = 3259) Trace Negative - Negative POCT U GLU (test code = 3256) Normal Negative - Negative POCT U KETONE (test code = 3258) Negative Negative - Negative POCT U UROBILI (test code = 3260) Normal 0.2-1 POCT U BILI (test code = 3261) Negative Negative - Negative POCT U BLD (test code = 3257) About 250 Negative - Negative POCT U COLOR (test code = 3266) Yellow POCT U APPEAR (test code = 3267) Cloudy Lab Interpretation (test code = 58448-7) Abnormal [facility] [id number] 16:36:00 Test Item Value Reference Range Interpretation Comments POCT PREG (test code Negative = 1605) On board controls Yes acceptable with C Line (test code = 3574) POCT PREG LOT # (test code = 3575) POCT PREG TEST DATE (test code = 3576) CHIQUITA (test code = CHIQUITA) accurate development and interpretation of all internal controls [facility] SARS-COV-2 ANTIGEN (BINAX NOW)2022-08-23 16:19:00 Test Item Value Reference Range Interpretation Comments POCT SARS-COV-2 Not Detected Not Detected ANTIGEN (test code = 67771-5) On board controls Yes acceptable with C Line (test code = 3574) CHIQUITA (test code = accurate development and CHIQUITA) interpretation of all internal controlsYulia Gavin RN ?08/23/2022 ?11:18 AM [facility]2023-03-21 19:03:00 Test Item Value Reference Range Interpretation Comments U Preg (test code = U Negative (06/27/22 2:03 Preg) PM) [facility] [id number] 19:03:00 Test Item Value Reference Range Interpretation Comments U Preg (test code = U Negative (06/27/22 2:03 Preg) PM) [facility]: [id number] 19:17:00 Test Item Value Reference Range Interpretation Comments Culture: Anaerobic (test Culture In Progress code = Culture: Anaerobic) [facility] [id number] 19:17:00 Test Item Value Reference Range Interpretation Comments Gram Stain Report No Wbc'S Or Organisms (test code = Gram Seen Stain Report) [facility]: Aspirate/Body Fluid/[id number] 19:17:00 Test Item Value Reference Range Interpretation Comments Culture: Aspirate/Body No Growth; Holding Fluid/Tissue (test code = Culture: Aspirate/Body Fluid/Tissue) [facility]: [id number] 19:17:00 Test Item Value Reference Range Interpretation Comments Culture: Anaerobic (test Culture In Progress code = Culture: Anaerobic) [facility] Stain [id number] 19:17:00 Test Item Value Reference Range Interpretation Comments Gram Stain Report No Wbc'S Or Organisms (test code = Gram Seen Stain Report) [facility] Aspirate/Body Fluid/[id number] 19:17:00 Test Item Value Reference Range Interpretation Comments Culture: Aspirate/Body No Growth; Holding Fluid/Tissue (test code = Culture: Aspirate/Body Fluid/Tissue) [facility]: Wodyighll6735-06-11 19:17:00 Test Item Value Reference Range Interpretation Comments Culture: Anaerobic (test Culture In Progress code = Culture: Anaerobic) [facility] Stain [id number] 19:17:00 Test Item Value Reference Range Interpretation Comments Gram Stain Report No Wbc'S Or Organisms (test code = Gram Seen Stain Report) [facility]: Aspirate/Body Fluid/Pztxqi6310-15-71 19:17:00 Test Item Value Reference Range Interpretation Comments Culture: Aspirate/Body No Growth; Holding Fluid/Tissue (test code = Culture: Aspirate/Body Fluid/Tissue) [facility]: [id number] 19:17:00 Test Item Value Reference Range Interpretation Comments Culture: Anaerobic (test Culture In Progress code = Culture: Anaerobic) [facility] Stain [id number] 19:17:00 Test Item Value Reference Range Interpretation Comments Gram Stain Report No Wbc'S Or Organisms (test code = Gram Seen Stain Report) [facility]: Aspirate/Body Fluid/[id number] 19:17:00 Test Item Value Reference Range Interpretation Comments Culture: Aspirate/Body No Growth; Holding Fluid/Tissue (test code = Culture: Aspirate/Body Fluid/Tissue) [facility]: [id number] 19:16:00 Test Item Value Reference Range Interpretation Comments Culture: Anaerobic (test Culture In Progress code = Culture: Anaerobic) [facility] Stain [id number] 19:16:00 Test Item Value Reference Range Interpretation Comments Gram Stain Report Few Wbc'S; No Organisms (test code = Gram Seen Stain Report) [facility]annlture: Aspirate/Body Fluid/[id number] 19:16:00 Test Item Value Reference Range Interpretation Comments Culture: Aspirate/Body No Growth; Holding Fluid/Tissue (test code = Culture: Aspirate/Body Fluid/Tissue) [facility]: [id number] 19:16:00 Test Item Value Reference Range Interpretation Comments Culture: Anaerobic (test Culture In Progress code = Culture: Anaerobic) [facility] Stain [id number] 19:16:00 Test Item Value Reference Range Interpretation Comments Gram Stain Report Few Wbc'S; No Organisms (test code = Gram Seen Stain Report) [facility]lt[facility]: Aspirate/Body Fluid/[id number] 19:16:00 Test Item Value Reference Range Interpretation Comments Culture: Aspirate/Body No Growth; Holding Fluid/Tissue (test code = Culture: Aspirate/Body Fluid/Tissue) [facility]: [id number] 19:16:00 Test Item Value Reference Range Interpretation Comments Culture: Anaerobic (test Culture In Progress code = Culture: Anaerobic) [facility]annGram Stain [id number] 19:16:00 Test Item Value Reference Range Interpretation Comments Gram Stain Report Few Wbc'S; No Organisms (test code = Gram Seen Stain Report) [facility]: Aspirate/Body Fluid/[id number] 19:16:00 Test Item Value Reference Range Interpretation Comments Culture: Aspirate/Body No Growth; Holding Fluid/Tissue (test code = Culture: Aspirate/Body Fluid/Tissue) [facility]: Kvefvlvgm8114-00-12 19:16:00 Test Item Value Reference Range Interpretation Comments Culture: Anaerobic (test Culture In Progress code = Culture: Anaerobic) [facility] Stain [id number] 19:16:00 Test Item Value Reference Range Interpretation Comments Gram Stain Report Few Wbc'S; No Organisms (test code = Gram Seen Stain Report) [facility]: Aspirate/Body Fluid/[id number] 19:16:00 Test Item Value Reference Range Interpretation Comments Culture: Aspirate/Body No Growth; Holding Fluid/Tissue (test code = Culture: Aspirate/Body Fluid/Tissue) [facility]2022-04-01 16:54:00 Test Item Value Reference Range Interpretation Comments U Preg (test code = U Negative (07/08/21 11:54 Preg) AM) [facility]2022-04-01 16:54:00 Test Item Value Reference Range Interpretation Comments U Preg (test code = U Negative (07/08/21 11:54 Preg) AM) [facility]2022-04-01 16:54:00 Test Item Value Reference Range Interpretation Comments U Preg (test code = U Negative (07/08/21 11:54 Preg) AM) [facility]2022-04-01 16:54:00 Test Item Value Reference Range Interpretation Comments U Preg (test code = U Negative (07/08/21 11:54 Preg) AM) [id number] 16:02:00 Test Item Value Reference Range Interpretation Comments Coronavirus (COVID-19) Not Detected (07/08/21 JEAN (test code = 11:02 AM) Coronavirus (COVID-19) JEAN) [facility] Wor[id number] 16:02:00 Test Item Value Reference Range Interpretation Comments Coronavirus (COVID-19) Not Detected (07/08/21 JEAN (test code = 11:02 AM) Coronavirus (COVID-19) JEAN) [facility] [id number] 16:02:00 Test Item Value Reference Range Interpretation Comments Coronavirus (COVID-19) Not Detected (07/08/21 JEAN (test code = 11:02 AM) Coronavirus (COVID-19) JEAN) [facility] [id number] 16:02:00 Test Item Value Reference Range Interpretation Comments Coronavirus (COVID-19) Not Detected (07/08/21 JEAN (test code = 11:02 AM) Coronavirus (COVID-19) JEAN) [facility] PointeCBC and [id number] 07:00:00 Test Item Value Reference Range Interpretation Comments WHITE BLOOD CELL See_Comment [Automated COUNT (test code = message] The 6690-2) system which generated this result transmitted reference range : 3.8 - 10.8 Thousand/uL. Th e reference range was not used to interpret this result as normal/abnormal . RED BLOOD CELL See_Comment [Automated COUNT (test code = message] The 789-8) system which generated this result transmitted reference range : 3.80 - 5.10 Million/uL. The reference range was not used to interpret this result as normal/abnormal . HEMOGLOBIN (test 13.5 g/dL 11.7-15.5 code = 718-7) HEMATOCRIT (test 40.6 % 35.0-45.0 code = 4544-3) MCV (test code = 95.3 fL 80.0-100.0 787-2) MCH (test code = 31.7 pg 27.0-33.0 785-6) MCHC (test code = 33.3 g/dL 32.0-36.0 786-4) RDW (test code = 12.1 % 11.0-15.0 788-0) PLATELET COUNT See_Comment [Automated (test code = message] The 777-3) system which generated this result transmitted reference range : 140 - 400 Thousand/uL. Th e reference range was not used to interpret this result as normal/abnormal . MPV (test code = 10.4 fL 7.5-12.5 776-5) ABSOLUTE See_Comment [Automated NEUTROPHILS (test message] T he code = 751-8) system which generated this result transmitted reference range : 1500 - 7800 cells/uL. The reference range was not used to interpret this result as normal/abnormal . ABSOLUTE See_Comment [Automated LYMPHOCYTES (test message] T he code = 731-0) system which generated this result transmitted reference range : 850 - 3900 cells/uL. The reference range was not used to interpret this result as normal/abnormal . ABSOLUTE MONOCYTES See_Comment [Automat ed (test code = message] The 742-7) system which generated this result transmitted reference range : 200 - 950 cells/uL. The reference range was not used to interpret this result as normal/abnormal . ABSOLUTE See_Comment [Automated EOSINOPHILS (test message] T he code = 711-2) system which generated this result transmitted reference range : 15 - 500 cells/uL. The reference range was not used to interpret this result as normal/abnormal . ABSOLUTE BASOPHILS See_Comment [Automat ed (test code = message] The 704-7) system which generated this result transmitted reference range : 0 - 200 cells/u L. The reference range was not used to interpr et this result as normal/abnormal . NEUTROPHILS (test 62 % code = 770-8) LYMPHOCYTES (test 31.3 % code = 736-9) MONOCYTES (test 4.9 % code = 5905-5) EOSINOPHILS (test 1.4 % code = 713-8) BASOPHILS (test 0.4 % REPORT code = 706-2) COMMENT:FASTIN G:N O RAC (test code = Performing RAC) Organization Information: ? ?Site ID: RGA ? ?Name: [employer] [place] ? ?Address: [address] [place] [address] ? ?Director: JESSENIA MOSS MD [place] HealthSedimentation rate, [id number] 07:00:00 Test Item Value Reference Range Interpretation Comments SED RATE BY 6 mm/h See_Comment [Automated MODIFIED message] The WESTERGREN (test system [facility] h code = 4537-7) generated thi s result transmit ernie reference range : < OR = 20. The reference range was not used to interpret this result as normal/abnormal . RAC (test code = Performing RAC) Organization Information: ? ?Site ID: RGA ? ?Name: [employer] [place] ? ?Address: [address] [place] [address] ? ?Director: JESSENIA MOSS MD [facility] [id number] 13:57:00 Test Item Value Reference Range Interpretation Comments U Preg (test code = U Negative (04/29/21 7:57 Preg) AM) [facility] [id number] 13:57:00 Test Item Value Reference Range Interpretation Comments U Preg (test code = U Negative (04/29/21 7:57 Preg) AM) [place] [id number] 13:57:00 Test Item Value Reference Range Interpretation Comments U Preg (test code = U Negative (04/29/21 7:57 Preg) AM) [place] [id number] 13:57:00 Test Item Value Reference Range Interpretation Comments U Preg (test code = U Negative (04/29/21 7:57 Preg) AM) [place] [id number] 12:16:00 Test Item Value Reference Range Interpretation Comments Coronavirus (COVID-19) Not Detected (04/29/21 JEAN (test code = 6:16 AM) Coronavirus (COVID-19) JEAN) [place] [id number] 12:16:00 Test Item Value Reference Range Interpretation Comments Coronavirus (COVID-19) Not Detected (04/29/21 JEAN (test code = 6:16 AM) Coronavirus (COVID-19) JEAN) [place] [id number] 12:16:00 Test Item Value Reference Range Interpretation Comments Coronavirus (COVID-19) Not Detected (04/29/21 JEAN (test code = 6:16 AM) Coronavirus (COVID-19) JEAN) [place] [id number] 12:16:00 Test Item Value Reference Range Interpretation Comments Coronavirus (COVID-19) Not Detected (04/29/21 JEAN (test code = 6:16 AM) Coronavirus (COVID-19) JEAN) [facility]
[2022-08-27 23:19] LABS: Urine Bacteria None Seen /HPF (<20); Urine Bilirubin NEGATIVE (Negative); Urine Blood 1+ (Negative); Urine Clarity Clear (Clear); Urine Color Light-Yellow (Yellow); Urine Glucose NEGATIVE (Negative); Urine Mucus Slight /HPF (None Seen); Urine Protein TRACE (Negative); Urine Urobilinogen Normal (Normal); Urine pH 5.5 (5.0-7.0)
--- NOTE | 2022-08-27 23:23 | ER ---
Nurse's Notes [facility] Name: Susanne Epps Age: 47 yrs Sex: Female : 1975 Arrival Date: 08/27/2022 Time: 20:29 Bed 17 Private MD: Diagnosis: UTI/ Urinary tract infection, site not specified Presentation: 08/27 21:11 Chief complaint: Patient states: fever, body aches and nausea X1 week. went to urgent lg3 care. diagnosed with UTI. started antibiotics. last dose tonight. urinary symptoms resolved but nausea and fever continues and getting worse. Coronavirus screen: Client denies travel out of the [place] in the last 14 days. At this time, the client does not indicate any symptoms associated with coronavirus-19. Ebola Screen: No symptoms or risks identified at this time. Initial Sepsis Screen: Does the patient meet any 2 criteria? No. Patient's initial sepsis screen is negative. Does the patient have a suspected source of infection? No. Patient's initial sepsis screen is negative. Risk Assessment: Do you want to hurt yourself or someone else? Patient reports no desire to harm self or others. Onset of symptoms is unknown. 21:11 Method Of Arrival: Ambulatory lg3 21:11 Acuity: JAYDA 4 lg3 Triage Assessment: 21:14 General: Appears in no apparent distress. uncomfortable, Behavior is calm, cooperative. lg3 Pain: Complains of pain in generalized body aches. EENT: No deficits noted. No signs and/or symptoms were reported regarding the EENT system. Neuro: No deficits noted. Pinon Agitation-Sedation Scale (RASS): 0 - Alert and Calm Level of Consciousness is awake, alert, obeys commands, Oriented to person, place, time, situation. Cardiovascular: No deficits noted. Denies chest pain, shortness of breath, Capillary refill < 3 seconds Clubbing of nail beds is absent Patient's skin is warm and dry. Respiratory: No deficits noted. Airway is patent Respiratory effort is even, unlabored, Respiratory pattern is regular, symmetrical. GI: No deficits noted. Reports nausea, vomiting. : No deficits noted. No signs and/or symptoms were reported regarding the genitourinary system. Derm: No deficits noted. No signs and/or symptoms reported regarding the dermatologic system. Skin is intact, is healthy with good turgor, Skin is dry, Skin is normal, Skin temperature is warm. Musculoskeletal: No deficits noted. No signs and/or symptoms reported regarding the musculoskeletal system. Circulation, motion, and sensation intact. Range of motion: intact in all extremities. 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 - Social history:: Smoking status: Patient denies any tobacco usage or history of. Patient uses alcohol, occasionally. Screenin:19 [facility] ED Fall Risk Assessment (Adult) History of falling in the last 3 months, ha1 including since admission No falls in past 3 months (0 pts) Score/Fall Risk Level 0 - 2 = Low Risk Oriented to surroundings, Maintained a safe environment, Educated pt \T\ family on fall prevention, incl call for assistance when getting out of bed. 23:46 Abuse screen: Denies threats or abuse. Denies injuries from another. Nutritional ha1 screening: No deficits noted. Tuberculosis screening: No symptoms or risk factors identified. Assessment: 22:00 General: Appears comfortable, uncomfortable, Behavior is calm, cooperative. Pain: ha1 Denies pain. Neuro: Level of Consciousness is awake, alert, obeys commands, Oriented to person, place, time, situation. Cardiovascular: Patient's skin is warm and dry. Respiratory: Airway is patent Respiratory effort is even, unlabored, Respiratory pattern is regular, symmetrical. GI: Abdomen is flat, non-distended, Reports nausea. : Reports recently diagnosed with a UTI. Musculoskeletal: Circulation, motion, and sensation intact. Range of motion: intact in all extremities. 23:02 Reassessment: Patient and/or family updated on plan of care and expected duration. Pain ha1 level reassessed. Patient is alert, oriented x 3, equal unlabored respirations, skin warm/dry/pink. Vital Signs: 21:11 BP 138 / 98; Pulse 92; Resp 17 S; Temp 100.6; Pulse Ox 100% on R/A; Weight 86.18 kg lg3 (R); Height 5 ft. 7 in. (R); 23:02 BP 133 / 87; Pulse 90; Resp 19; Temp 99.1(O); Pulse Ox 99% ; ha1 21:11 Body Mass Index 29.76 (86.18 kg, 170.18 cm) lg3 ED Course: 20:32 Patient arrived in ED. mr 21:14 Triage completed. lg3 21:14 Arm band placed on right wrist. lg3 21:18 Shy Pierre FNP-C is PHCP. snw 21:18 Flip Ng MD is Attending Physician. snw 21:18 Patient has correct armband on for positive identification. Placed in gown. Bed in low ha1 position. Call light in reach. Side rails up X 1. 22:02 Nell Estrada, ELIS is Primary Nurse. ha1 22:57 Urine W/Microscopic (UAM) Sent. ha1 23:46 No provider procedures requiring assistance completed. Patient did not have IV access ha1 during this emergency room visit. Administered Medications: 23:42 Drug: Doxycycline PO 100 mg Route: PO; ha1 23:50 Follow up: Response: No adverse reaction ha1 23:42 Drug: Promethazine PO 25 mg Route: PO; ha1 23:50 Follow up: Response: No adverse reaction ha1 23:46 Drug: HYDROcodone-acetaminophen PO 5 mg-325 mg 1 tabs Route: PO; ha1 23:50 Follow up: Response: No adverse reaction; RASS: Alert and Calm (0) ha1 Medication: 23:47 VIS not applicable for this client. ha1 Outcome: 23:22 Discharge ordered by . snw 23:47 Discharged to home ambulatory, with family. ha1 23:47 Condition: stable 23:47 Discharge instructions given to patient, family, Instructed on discharge instructions, follow up and referral plans. medication usage, Demonstrated understanding of instructions, follow-up care, medications, Prescriptions given X 2. 23:51 Patient left the ED. ha1 Signatures: Shy Pierre, LACING STRING CUTTER-C LACING STRING CUTTER-Csnw Yamile Camarena mr Baylee Mandujano RN RN lg3 Nell Estrada RN RN ha1 Corrections: (The following items were deleted from the chart) 22:50 21:14 PSHx: bilateral hand; lg3 snw
--- NOTE | 2022-08-27 23:23 | EDPHYS ---
Physician Documentation [facility] Name: Susanne Epps Age: 47 yrs Sex: Female : 1975 Arrival Date: 08/27/2022 Time: 20:29 Bed 17 Private MD: ED Physician Flip Ng HPI: 08/27 22:48 This 47 yrs old Female presents to ER via Ambulatory with complaints of Fever, Nausea. snw 22:48 The patient reports fever, not measured (subjective). Onset: The symptoms/episode snw began/occurred acutely, 1 week(s) ago, and became persistent. Associated signs and symptoms: Pertinent positives: nausea. Severity of symptoms: At their worst the symptoms were moderate in the emergency department the symptoms are unchanged. It is unknown whether or not the patient has had similar symptoms in the past. The patient has been recently seen by a physician: The patient has been recently seen at an urgent care, last week, for similar complaints, was given a prescription for antibiotics, was given a prescription for an antiemetic, macrobid, zofran. [employer]: 21:14 LMP 03/2022 lg3 Historical: - Allergies: 21:14 PENICILLINS; lg3 21:14 Topamax; lg3 21:14 Dilantin; lg3 - Home Meds: 21:14 zonisamide oral [Active]; Effexor XR 75 mg Oral cp24 2 caps once daily [Active]; BuSpar lg3 Oral [Active]; Folic Acid Oral [Active]; - PMHx: 21:14 Anxiety; Seizures; lg3 - PSHx: 21:14 Cholecystectomy; lg3 22:50 bilateral hand; CMC arthritis; snw - Immunization history:: Adult Immunizations up to date, Client reports receiving the 2nd dose of the Covid vaccine, Flu vaccine is not up to date. - Social history:: Smoking status: Patient denies any tobacco usage or history of. Patient uses alcohol, occasionally. ROS: 22:29 Eyes: Negative for injury, pain, redness, and discharge, ENT: Negative for injury, snw pain, and discharge, Neck: Negative for injury, pain, and swelling, Cardiovascular: Negative for chest pain, palpitations, and edema, Respiratory: Negative for shortness of breath, cough, wheezing, and pleuritic chest pain, Back: Negative for injury and pain. 22:29 : Negative for injury, bleeding, discharge, and swelling, MS/Extremity: Negative for injury and deformity, Skin: Negative for injury, rash, and discoloration, Neuro: Negative for headache, weakness, numbness, tingling, and seizure, Psych: Negative for depression, anxiety, suicide ideation, homicidal ideation, and hallucinations. 22:29 Constitutional: Positive for body aches, chills, fever, malaise, poor PO intake. 22:29 Abdomen/GI: Positive for nausea, constipation, Negative for abdominal pain, vomiting, diarrhea. Exam: 22:29 Constitutional: This is a well developed, well nourished patient who is awake, alert, snw and in no acute distress. Head/Face: Normocephalic, atraumatic. Eyes: Pupils equal round and reactive to light, extra-ocular motions intact. Lids and lashes normal. Conjunctiva and sclera are non-icteric and not injected. Cornea within normal limits. Periorbital areas with no swelling, redness, or edema. ENT: Nares patent. No nasal discharge, no septal abnormalities noted. Tympanic membranes are normal and external auditory canals are clear. Oropharynx with no redness, swelling, or masses, exudates, or evidence of obstruction, uvula midline. Mucous membranes moist. Neck: Trachea midline, no thyromegaly or masses palpated, and no cervical lymphadenopathy. Supple, full range of motion without nuchal rigidity, or vertebral point tenderness. No Meningismus. Chest/axilla: Normal chest wall appearance and motion. Nontender with no deformity. No lesions are appreciated. Cardiovascular: Regular rate and rhythm with a normal S1 and S2. No gallops, murmurs, or rubs. Normal PMI, no JVD. No pulse deficits. Respiratory: Lungs have equal breath sounds bilaterally, clear to auscultation and percussion. No rales, rhonchi or wheezes noted. No increased work of breathing, no retractions or nasal flaring. Abdomen/GI: Soft, non-tender, with normal bowel sounds. No distension or tympany. No guarding or rebound. No evidence of tenderness throughout. Back: No spinal tenderness. No costovertebral tenderness. Full range of motion. Skin: Warm, dry with normal turgor. Normal color with no rashes, no lesions, and no evidence of cellulitis. MS/ Extremity: Pulses equal, no cyanosis. Neurovascular intact. Full, normal range of motion. Neuro: Awake and alert, GCS 15, oriented to person, place, time, and situation. Cranial nerves II-XII grossly intact. Motor strength 5/5 in all extremities. Sensory grossly intact. Cerebellar exam normal. Normal gait. Psych: Awake, alert, with orientation to person, place and time. Behavior, mood, and affect are within normal limits. Vital Signs: 21:11 BP 138 / 98; Pulse 92; Resp 17 S; Temp 100.6; Pulse Ox 100% on R/A; Weight 86.18 kg lg3 (R); Height 5 ft. 7 in. (R); 23:02 BP 133 / 87; Pulse 90; Resp 19; Temp 99.1(O); Pulse Ox 99% ; ha1 21:11 Body Mass Index 29.76 (86.18 kg, 170.18 cm) lg3 MDM: 22:07 Patient medically screened. snw 23:35 Differential diagnosis: viral Infection, bacterial infection, UTI. Data reviewed: vital snw signs, nurses notes, lab test result(s). Historians other than the Patient: Spouse/Significant Other: Boyfriend. Counseling: I had a detailed discussion with the patient and/or guardian regarding: the historical points, exam findings, and any diagnostic results supporting the discharge/admit diagnosis, lab results, the need for outpatient follow up, to return to the emergency department if symptoms worsen or persist or if there are any questions or concerns that arise at home. Special discussion: I have referred the patient to see his PCP for further evaluation of high blood pressure. Based on the history and exam findings, there is no indication for further emergent testing or inpatient evaluation. I discussed with the patient/guardian the need to see the primary care provider for further evaluation of the symptoms. 08/27 22:23 Order name: Urine W/Microscopic (UAM); Complete Time: :21 snw 08/27 23:23 Order name: Urine Culture EDMS Administered Medications: 23:42 Drug: Doxycycline PO 100 mg Route: PO; ha1 23:50 Follow up: Response: No adverse reaction ha1 23:42 Drug: Promethazine PO 25 mg Route: PO; ha1 23:50 Follow up: Response: No adverse reaction 1 23:46 Drug: HYDROcodone-acetaminophen PO 5 mg-325 mg 1 tabs Route: PO; ha1 23:50 Follow up: Response: No adverse reaction; RASS: Alert and Calm (0) [facility] Disposition Summary: 08/27/22 23:22 Discharge Ordered Location: Home snw Condition: Stable snw Diagnosis - UTI/ Urinary tract infection, site not specified snw Followup: snw - With: Emergency Department - When: As needed - Reason: Worsening of condition Followup: snw - With: Private Physician - When: 2 - 3 days - Reason: Recheck today's complaints, Continuance of care, Re-evaluation by your physician Discharge Instructions: - Discharge Summary Sheet snw - Urinary Tract Infection, Adult snw - Rehydration, Adult snw Forms: - Medication Reconciliation Form snw - Thank You Letter snw - Antibiotic Education snw - Prescription Opioid Use snw - Work release form [facility] Prescriptions: - Doxycycline Hyclate 100 mg Oral Tablet - take 1 tablet by ORAL route every 12 hours; 20 tablet; Refills: 0, Product snw Selection Permitted - promethazine 25 mg Oral Tablet - take 1 tablet by ORAL route every 6 hours As needed; 20 tablet; Refills: 0, snw Product Selection Permitted Signatures: Dispatcher [employer] Shy Comer FNP-C SECOND WATCH SERGEANT-Csnw Baylee Mandujano, ELIS RN 3 Nell Estrada RN RN 1 Corrections: (The following items were deleted from the chart) 22:50 21:14 PSHx: bilateral hand; lg3 snw
[2022-08-27] MEDS ORDERED: DOXYCYCLINE 100 MG CAP PO ONE (23:45)
[2022-08-27] MEDS ORDERED: PROMETHAZINE 25 MG TABLET ONE (23:45)
[2022-08-27] MEDS ORDERED: HYDROCODONE/APAP 5/325 MG TAB ONE (23:52)
[2022-08-28 00:41] VITALS: BP 133/87; TEMP 99.1; O2SAT 99
== END 2022-08-27 23:51 | disposition home or self-care (01) ==
LOC: ER 20:29
DX: N39.0 Urinary tract infection, site not specified (principal); Z88.0 Allergy status to penicillin; Z88.8 Allergy status to other drugs, medicaments and biological substances
CPT/HCPCS: 87088; 81001; 87086; Q0169

== ENCOUNTER → 2023-04-07 | Emergency (ER) | payer OTHER, SELFPAY ==
[2023-04-07 18:17] LABS: Specific Gravity 1.017 (1.005-1.030); Urine Bacteria <20 /HPF (<20); Urine Bilirubin NEGATIVE (Negative); Urine Blood Negative (Negative); Urine Clarity Clear (Clear); Urine Color Light-Yellow (Yellow); Urine Glucose NEGATIVE (Negative); Urine Mucus Slight /HPF (None Seen); Urine Protein NEGATIVE (Negative); Urine RBC <5 /HPF (None Seen); Urine Urobilinogen Normal (Normal); Urine pH 6.5 (5.0-7.0)
--- NOTE | 2023-04-07 18:25 | ER ---
Nurse's Notes [facility] Name: Susanne Epps Age: 48 yrs Sex: Female : 1975 Arrival Date: 04/07/2023 Time: 16:46 Bed IW3 Private MD: Diagnosis: UTI/ Urinary tract infection, site not specified Presentation: 04/07 17:48 Chief complaint: Patient states: DYSURIA AND FREQUENCY SINCE THIS AM. Coronavirus bp screen: At this time, the client does not indicate any symptoms associated with coronavirus-19. Ebola Screen: No symptoms or risks identified at this time. Initial Sepsis Screen: Does the patient meet any 2 criteria? No. Patient's initial sepsis screen is negative. Does the patient have a suspected source of infection? No. Patient's initial sepsis screen is negative. Risk Assessment: Do you want to hurt yourself or someone else? Patient reports no desire to harm self or others. Onset of symptoms was April 07, 2023. 17:48 Method Of Arrival: Ambulatory bp 17:48 Acuity: JAYDA 4 bp Triage Assessment: 17:50 General: Appears in no apparent distress. Behavior is calm, cooperative, appropriate bp for age. Pain: Denies pain. : Reports burning with urination, urinary frequency. Historical: - Allergies: 17:50 Dilantin; bp 17:50 PENICILLINS; bp 17:50 Topamax; bp - Home Meds: 17:50 BuSpar Oral [Active]; Effexor XR 75 mg Oral cp24 2 caps once daily [Active]; Folic Acid bp Oral [Active]; zonisamide oral [Active]; - PMHx: 17:50 Anxiety; Seizures; bp - PSHx: 17:50 bilateral hand; CMC arthritis; Cholecystectomy; bp - Immunization history:: Adult Immunizations up to date. - Social history:: Smoking status: Patient denies any tobacco usage or history of. Screenin:[address] [facility] ED Fall Risk Assessment (Adult) History of falling in the last 3 months, bp including since admission No falls in past 3 months (0 pts). Abuse screen: Denies threats or abuse. Denies injuries from another. Nutritional screening: No deficits noted. Tuberculosis screening: No symptoms or risk factors identified. Assessment: 19:11 Reassessment: Pt into room 12 to review discharge instructions. Pt verbalized said nw1 instructions. All questions asked, answered. Vital Signs: 17:48 BP 121 / 88; Pulse 73; Resp 16; Temp 98; Pulse Ox 99% ; Weight 81.65 kg; Height 5 ft. 7 bp in. ; 17:48 Body Mass Index 28.19 (81.65 kg, 170.18 cm) bp ED Course: 16:50 Patient arrived in ED. ae5 17:02 Tania Amaya FNP-C is [facility]. kb 17:02 Florencio Ruelas MD is Attending Physician. kb 17:49 Triage completed. bp 17:50 Arm band placed on. bp 17:51 Patient has correct armband on for positive identification. bp Administered Medications: No medications were administered Outcome: 18:24 Discharge ordered by . kb 19:10 Discharged to home ambulatory, nw1 19:10 Condition: stable 19:10 Discharge instructions given to patient, Instructed on discharge instructions, follow up and referral plans. medication usage, water intake, less sugar intake Demonstrated understanding of instructions, follow-up care, medications, 19:12 Patient left the ED. nw1 Signatures: Tania Amaya FNP-C FNP-Ckb Peltier, Brian, RN RN Kae Fernandes, ELIS RN nw1 Nori Allen ae5
--- NOTE | 2023-04-07 18:25 | EDPHYS ---
Physician Documentation [facility] Name: Susanne Epps Age: 48 yrs Sex: Female : 1975 Arrival Date: 04/07/2023 Time: 16:46 Bed IW3 Private MD: ED Physician Florencio Ruelas HPI: 04/07 18:23 This 48 yrs old Female presents to ER via Ambulatory with complaints of Urinary Problem.kb 18:23 Patient is a 48-year-old female with a history of anxiety, seizures and multiple UTIs who presents for frequency small amounts of urine and dysuria that started today. Denies fever, abdominal pain, flank pain. States she wanted to start antibiotics before he got worse because she normally progresses to fever and flank pain within a couple of days of onset of symptoms.. Historical: - Allergies: 17:50 Dilantin; bp 17:50 PENICILLINS; bp 17:50 Topamax; bp - Home Meds: 17:50 BuSpar Oral [Active]; Effexor XR 75 mg Oral cp24 2 caps once daily [Active]; Folic Acid bp Oral [Active]; zonisamide oral [Active]; - PMHx: 17:50 Anxiety; Seizures; bp - PSHx: 17:50 bilateral hand; CMC arthritis; Cholecystectomy; bp - Immunization history:: Adult Immunizations up to date. - Social history:: Smoking status: Patient denies any tobacco usage or history of. ROS: 18:22 Constitutional: Negative for fever, chills, and weight loss, kb 18:22 : Positive for urinary symptoms, urinary frequency, small amounts, burning with urination, 18:22 All other systems are negative, Exam: 18:22 Constitutional: This is a well developed, well nourished patient who is awake, alert, kb and in no acute distress. Head/Face: Normocephalic, atraumatic. ENT: Moist Mucous membranes Cardiovascular: Regular rate Respiratory: Respirations even and unlabored. No increased work of breathing. Talking in full sentences Abdomen/GI: Soft, non-tender. No distention Skin: Warm, dry with normal turgor. Normal color. MS/ Extremity: Pulses equal, no cyanosis. Neurovascular intact. Full, normal range of motion. Neuro: Awake and alert, GCS 15, oriented to person, place, time, and situation. Moves all extremities. Normal gait. Vital Signs: 17:48 BP 121 / 88; Pulse 73; Resp 16; Temp 98; Pulse Ox 99% ; Weight 81.65 kg; Height 5 ft. 7 bp in. ; 17:48 Body Mass Index 28.19 (81.65 kg, 170.18 cm) bp MDM: 17:02 Patient medically screened. kb 18:22 Differential diagnosis: UTI, kidney stone, pyelonephritis. Data reviewed: vital signs, kb nurses notes. Test considered but Not performed: Labs: cbc, bmp considered but pt has no abd pain, afebrile, nontoxic in appearance. Counseling: I had a detailed discussion with the patient and/or guardian regarding the historical points, exam findings, and any diagnostic results supporting the discharge/admit diagnosis, lab results, the need for outpatient follow up, a family practitioner, to return to the emergency department if symptoms worsen or persist or if there are any questions or concerns that arise at home. 04/07 17:28 Order name: Urinalysis w/ reflexes; Complete Time: 18:20 kb 04/07 18:21 Order name: Urine Culture EDMS Administered Medications: No medications were administered Disposition: 18:35 Co-signature as Attending Physician, Florencio Ruelas MD I reviewed the patient's care rn provided by the Advanced Practice Provider and agree with the diagnosis and treatment plan. Disposition Summary: 04/07/23 18:24 Discharge Ordered Notes: Location: Home kb Condition: Stable kb Diagnosis - UTI/ Urinary tract infection, site not specified kb Discharge Instructions: - Discharge Summary Sheet kb - Urinary Tract Infection, Adult, [id number] kb Forms: - Medication Reconciliation Form kb - Thank You Letter kb - Antibiotic Education kb - Prescription Opioid Use kb - Patient Portal Instructions kb - Leadership Thank You Letter kb Prescriptions: - Cephalexin 500 mg Oral Capsule - take 1 capsule ORAL route every 8 hours for 10 days; 30 capsule; Refills: 0, kb Product Selection Permitted Signatures: Dispatcher [employer] EDMS Tania Amaya, MATI-C METAL PAINTER-Florencio Sullivan MD MD rn Peltier, Brian, RN RN bp
== END ==
LOC: ER 16:46
DX: N39.0 Urinary tract infection, site not specified (principal)
CPT/HCPCS: 81001; 87077; 87086; 87088; 87186; 99282

== ENCOUNTER 2024-01-21 12:43 | Emergency (ER) | payer OTHER ==
[2024-01-21 13:54] LABS: Absolute Eosinophils 0.1 K/uL (0-0.5); Absolute Lymphocytes (CBC) 1.7 K/uL (0.7-4.9); Absolute Monocytes 0.3 K/uL (0.1-1.3); Absolute Neutrophil 2.1 K/uL (1.8-8.0); Basophils % 0.7 % (0-1.3); Hematocrit 45.6 % (36.0-45.0); Hemoglobin 15.3 g/dL (12.0-15.0); Lymphocytes % 41.3 % (15.3-44.8); MCH 33.3 pg (27.0-35.0); MCHC 33.7 g/dL (32.0-36.0); MPV 9.4 fL (7.6-11.3); Monocytes % 6.2 % (3.3-12.3); Neutrophils % 49.8 % (41.7-73.7); Nucleated Red Blood Cells % 0.1 % (0-0); Platelets 206 thou/uL (152-406); Red Cell Distribution Width 13.1 % (12.1-15.2)
[2024-01-21 13:59] LABS: Urine Bacteria <20 /HPF (<20); Urine Bilirubin NEGATIVE (Negative); Urine Blood 2+ (Negative); Urine Clarity Extremely Turbid (Clear); Urine Color Light-Yellow (Yellow); Urine Culture Reflex Order NOT NEEDED; Urine Glucose NEGATIVE (Negative); Urine Ketones NEGATIVE (Negative); Urine Microscopic Reflex YN ORDER UMIC; Urine Nitrite NEGATIVE (Negative); Urine Protein NEGATIVE (Negative); Urine RBC <5 /HPF (None Seen); Urine Urobilinogen Normal (Normal)
[2024-01-21 14:12] LABS: Albumin/Globulin Ratio 1.1 (1.1-1.8); Anion Gap 5.3 mEq/L (5.0-15.0); Bilirubin Total 0.3 mg/dL (0.2-1.0); Globulin 3.5 g/dL (2.3-3.5); Potassium 4.3 mEq/L (3.5-5.1); Protein, Total 7.5 g/dL (6.4-8.2)
--- NOTE | 2024-01-21 15:13 | RAD REPORT ---
EXAMINATION: CT Abdomen Pelvis W Contrast CLINICAL INDICATION: Female, 48 years old. ABD PAIN TECHNIQUE: CT abdomen and pelvis was performed, after the administration of IV contrast, as per [facility] protocol. Axial, sagittal and coronal reconstructions were obtained. One or more of the following dose reduction techniques were used: Automated exposure control, adjustment of the mA and k V according to patient size, and iterative reconstruction. Unless otherwise specified, incidental findings do not require dedicated imaging follow-up. COMPARISON: No prior exam. FINDINGS: LOWER CHEST: The visualized lung bases are clear. LIVER: Normal in size and contour. No focal lesion. BILIARY SYSTEM: Status post cholecystectomy. SPLEEN: Normal size. No focal lesion. PANCREAS: No mass, ductal dilation, or devon-pancreatic fluid. ADRENALS: Normal; no mass. KIDNEYS: Normal size and contour. No hydronephrosis. URINARY BLADDER: Unremarkable. GASTROINTESTINAL TRACT: No evidence of free air, significant intra-abdominal free fluid, bowel obstru ction or abscess. APPENDIX: Normal appendix. LYMPH NODES: No lymphadenopathy. MUSCULOSKELETAL: No acute or suspicious osseous abnormality. ADDITIONAL FINDINGS: None. IMPRESSION: No acute or concerning abnormalities seen in the abdomen or pelvis.
--- NOTE | 2024-01-21 16:08 | ER ---
Nurse's Notes [facility] Name: Susanne Epps Age: 48 yrs Sex: Female : 1975 Arrival Date: 01/21/2024 Time: 12:43 Bed 15 Private MD: Diagnosis: Abdominal pain, unspecified Presentation: 01/20 12:54 Chief complaint: Patient states: right low back/hip hurts, and front of pelvis also tm6 hurts. Has been going on for the last 3 months, but gotten unbearable the last three weeks. Also having n/v/d, for a couple of months. Coronavirus screen: Client denies travel out of the [place] in the last 14 days. Ebola Screen: Patient negative for fever greater than or equal to 101.5 degrees Fahrenheit, and additional compatible Ebola Virus Disease symptoms Patient denies exposure to infectious person. Patient denies travel to an Ebola-affected area in the 21 days before illness onset. No symptoms or risks identified at this time. Initial Sepsis Screen: Does the patient meet any 2 criteria? No. Patient's initial sepsis screen is negative. Does the patient have a suspected source of infection? No. Patient's initial sepsis screen is negative. Risk Assessment: Do you want to hurt yourself or someone else? Patient reports no desire to harm self or others. Onset of symptoms was October 29, 2023. 12:54 Method Of Arrival: Ambulatory tm6 12:54 Acuity: JAYDA 3 tm6 Triage Assessment: 12:54 General: Appears in no apparent distress. Behavior is calm, cooperative. Pain: tm6 Complains of pain in coccyx, right lower back and right inguinal area Pain currently is 7 out of 10 on a pain scale. EENT: No signs and/or symptoms were reported regarding the EENT system. Neuro: Level of Consciousness is awake, alert, obeys commands, Oriented to person, place, time, situation. Cardiovascular: Patient's skin is warm and dry. Respiratory: Airway is patent Respiratory effort is even, unlabored, Respiratory pattern is regular, symmetrical. GI: Reports lower abdominal pain. : Reports pain in right flank(s), vaginal bleeding that is bright red. Derm: No signs and/or symptoms reported regarding the dermatologic system. Musculoskeletal: No signs and/or symptoms reported regarding the musculoskeletal system. 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 - Infectious Disease History:: Denies. - Social history:: Smoking status: Patient denies any tobacco usage or history of. Patient/guardian denies using alcohol. - Family history:: not pertinent. - Hospitalizations: : No recent hospitalization is reported. Screenin:16 [facility] Fall Risk Assessment (Adult) History of falling in the last 3 months, kc6 including since admission No falls in past 3 months (0 pts) Confusion or Disorientation No (0 pts) Intoxicated or Sedated No (0 pts) Impaired Gait No (0 pts) Mobility Assist Device Used No (0 pt) Altered Elimination No (0 pt) Score/Fall Risk Level 0 - 2 = Low Risk Oriented to surroundings. Abuse screen: Denies threats or abuse. Denies injuries from another. Nutritional screening: No deficits noted. Tuberculosis screening: No symptoms or risk factors identified. Assessment: 14:16 General: Appears in no apparent distress. comfortable, well groomed, well developed, kc6 Behavior is calm, cooperative, appropriate for age. Pain: Complains of pain in abdomen and pelvis and right lower back. Neuro: Level of Consciousness is awake, alert, obeys commands, Oriented to person, place, time, situation, Appropriate for age. Cardiovascular: Capillary refill < 3 seconds. Respiratory: Airway is patent Trachea midline Respiratory effort is even, unlabored, Respiratory pattern is regular, symmetrical. GI: Reports diarrhea, nausea, vomiting. : No signs and/or symptoms were reported regarding the genitourinary system. EENT: No signs and/or symptoms were reported regarding the EENT system. Derm: No signs and/or symptoms reported regarding the dermatologic system. Skin is intact, is healthy with good turgor, Skin is pink, warm \T\ dry. Musculoskeletal: No signs and/or symptoms reported regarding the musculoskeletal system. Circulation, motion, and sensation intact. Capillary refill < 3 seconds, Range of motion: intact in all extremities. 15:06 Reassessment: Patient appears in no apparent distress at this time. No changes from kc6 previously documented assessment. Patient and/or family updated on plan of care and expected duration. Pain level reassessed. Patient is alert, oriented x 3, equal unlabored respirations, skin warm/dry/pink. 15:59 Reassessment: Patient appears in no apparent distress at this time. No changes from kc6 previously documented assessment. Patient and/or family updated on plan of care and expected duration. Pain level reassessed. Patient is alert, oriented x 3, equal unlabored respirations, skin warm/dry/pink. Vital Signs: 12:53 BP 112 / 80; Pulse 58; Resp 17; Temp 98.2(O); Pulse Ox 100% on R/A; MAP 91 mmHg; Weight tm6 78.02 kg; Height 5 ft. 7 in. ; Pain 7/10; 15:13 BP 122 / 86; Pulse 42; Resp 15 S; Pulse Ox 100% on R/A; kc6 15:59 BP 117 / 80; Pulse 50; Resp 15 S; Pulse Ox 100% on R/A; kc6 12:53 Body Mass Index 26.94 (78.02 kg, 170.18 cm) tm6 12:53 Pain Scale: Adult tm6 ED Course: 12:48 Patient arrived in ED. im 12:48 Florencio Ruelas MD is Attending Physician. rn 12:56 Triage completed. tm6 12:58 Arm band placed on left wrist. tm6 13:01 Benita Joy, RN is Primary Nurse. kc6 14:15 Patient has correct armband on for positive identification. Bed in low position. Call kc6 light in reach. Side rails up X 1. Adult w/ patient. Pulse ox on. NIBP on. Door closed. Noise minimized. Lights dimmed. Pillow given. 14:15 Patient maintains SpO2 saturation greater than 95% on room air. kc6 14:17 Inserted saline lock: 22 gauge in left antecubital area, using aseptic technique. Blood nh2 collected. Flushed with 10 mL NS. 14:31 CT Abd/Pelvis - IV Contrast Only In Process Unspecified. EDMS 16:22 No provider procedures requiring assistance completed. IV discontinued, intact, kc6 bleeding controlled, No redness/swelling at site. Pressure dressing applied. Administered Medications: No medications were administered Medication: 16:22 VIS not applicable for this client. kc6 Outcome: 16:07 Discharge ordered by . rn 16:22 Discharged to home ambulatory, with significant other, [email or web address] 16: Condition: good 16:22 Discharge instructions given to patient, significant other, Instructed on discharge instructions, follow up and referral plans. Demonstrated understanding of instructions, follow-up care, 16:22 Patient left the ED. kc6 Signatures: Dispatcher [employer] EDFlorencio Cerna MD MD rn Campbell, Kaitlyn, RN RN kc6 Abigail Montgomery Tawney, RN RN tm6 Burt Castanon Jr nh2
--- NOTE | 2024-01-21 16:08 | EDPHYS ---
Physician Documentation [facility] Name: Susanne Epps Age: 48 yrs Sex: Female : 1975 Arrival Date: 01/21/2024 Time: 12:43 Bed 15 Private MD: ED Physician Florencio Ruelas HPI: 01/20 14:02 This 48 yrs old Female presents to ER via Ambulatory with complaints of rn Vomiting/Diarrhea, Abdominal Pain, Hip Pain, Vaginal Bleeding, Mucus stools. 14:03 The patient presents with abdominal pain in the lower abdomen. Onset: The rn symptoms/episode began/occurred 6 month(s) ago. The symptoms do not radiate. Associated signs and symptoms: Pertinent positives: diarrhea, Pertinent negatives: fever. The symptoms are described as achy, crampy. Modifying factors: The symptoms are alleviated by nothing, the symptoms are aggravated by movement, touching the area. Severity of pain: At its worst the pain was moderate in the emergency department the pain is unchanged. The patient has not experienced similar symptoms in the past. The patient has not recently seen a physician. Patient reports 6 to 12 months of lower abdominal pain, associated with diarrhea, mucus in the stool but no blood. No family history of inflammatory bowel disease. No fever. No vomiting. Patient would not want to come in but her significant other convinced her to come in for evaluation today. Also reports low back pain and butt pain.. 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 - Infectious Disease History:: Denies. - Social history:: Smoking status: Patient denies any tobacco usage or history of. Patient/guardian denies using alcohol. - Family history:: not pertinent. - Hospitalizations: : No recent hospitalization is reported. ROS: 14:03 Constitutional: Negative for fever, chills, and weight loss, Cardiovascular: Negative rn for chest pain, palpitations, and edema, Respiratory: Negative for shortness of breath, cough, wheezing, and pleuritic chest pain, Abdomen/GI: + abd pain and diarrhea Back: Negative for injury and pain, : Negative for injury, bleeding, discharge, and swelling, Neuro: Negative for headache, weakness, numbness, tingling, and seizure, Exam: 14:03 Constitutional: This is a well developed, well nourished patient who is awake, alert, rn and in no acute distress. Cardiovascular: Regular rate and rhythm. No pulse deficits. Respiratory: No increased work of breathing, no retractions or nasal flaring. Abdomen/GI: Soft, + mild RLQ tenderness, no masses Neuro: Awake and alert, GCS 15 Vital Signs: 12:53 BP 112 / 80; Pulse 58; Resp 17; Temp 98.2(O); Pulse Ox 100% on R/A; MAP 91 mmHg; Weight tm6 78.02 kg; Height 5 ft. 7 in. ; Pain 7/10; 15:13 BP 122 / 86; Pulse 42; Resp 15 S; Pulse Ox 100% on R/A; kc6 15:59 BP 117 / 80; Pulse 50; Resp 15 S; Pulse Ox 100% on R/A; kc6 12:53 Body Mass Index 26.94 (78.02 kg, 170.18 cm) tm6 12:53 Pain Scale: Adult tm6 MDM: 12:48 Medical Screening Exam initiated rn 16:05 Differential diagnosis: diverticulitis, gastritis, non-specific abd pain, pancreatitis, rn Peptic Ulcer Disease, Perf. Duodenal Ulcer, Perf. Gastric Ulcer. Data reviewed: vital signs, nurses notes, lab test result(s), radiologic studies, and as a result, I will discharge patient. Counseling: I had a detailed discussion with the patient and/or guardian regarding the historical points, exam findings, and any diagnostic results supporting the discharge/admit diagnosis, lab results, the need for outpatient follow up, to return to the emergency department if symptoms worsen or persist or if there are any questions or concerns that arise at home. Special discussion: I discussed with the patient/guardian in detail that at this point there is no indication for admission to the hospital. It is understood, however, that if the symptoms persist or worsen the patient needs to return immediately for re-evaluation. Based on the history and exam findings, there is no indication for further emergent testing or inpatient evaluation. I discussed with the patient/guardian the need to see the earth science technical officer for further evaluation of the symptoms. I discussed with the patient/guardian the need to see the OB Gyne specialist for further evaluation of the symptoms. 01/20 13:17 Order name: CBC with Diff; Complete Time: 14:16 rn 01/20 13:17 Order name: CMP; Complete Time: 14:16 rn 01/20 13:17 Order name: Lipase; Complete Time: 14:16 rn 01/20 13:17 Order name: Urinalysis w/ reflexes; Complete Time: 14:16 rn 01/20 13:17 Order name: CT Abd/Pelvis - IV Contrast Only; Complete Time: 15:22 rn 01/20 13:17 Order name: IV Saline Lock; Complete Time: 13:49 rn 01/20 13:17 Order name: Labs collected and sent; Complete Time: 13:49 rn Administered Medications: No medications were administered Disposition Summary: 01/21/24 16:07 Discharge Ordered Notes: Location: Home rn Problem: an ongoing problem rn Symptoms: are unchanged rn Condition: Stable rn Diagnosis - Abdominal pain, unspecified rn Followup: rn - With: Private Physician - When: As needed - Reason: Recheck today's complaints, Re-evaluation by your physician Discharge Instructions: - Discharge Summary Sheet rn - Abdominal Pain, Adult rn Forms: - Medication Reconciliation Form rn - Antibiotic tile burner - Prescription Opioid Use rn - Patient Portal Instructions rn - Leadership Thank You Letter rn Signatures: Dispatcher [employer] EDFlorencio Cerna MD MD rn Masterson, Tawney, RN RN tm6 Corrections: (The following items were deleted from the chart) 13:18 13:18 CBC+H.LAB.BRZ ordered. EDMS EDMS 13:18 13:18 COMPREHENSIVE METABOLIC PANEL+C.LAB.BRZ ordered. EDMS EDMS 13:18 13:18 LIPASE+C.LAB.BRZ ordered. EDMS EDMS 13:18 13:18 Urinalysis+U.LAB.BRZ ordered. EDMS EDMS 13:18 13:18 Abdomen Pelvis W Con+CT.RAD.BRZ ordered. EDMS EDMS
[2024-01-21 18:08] VITALS: O2SAT 100
[2024-01-21 18:10] VITALS: TEMP 98.2
[2024-01-21 18:11] VITALS: BP 117/80
== END 2024-01-21 16:22 | disposition home or self-care (01) ==
LOC: ER 12:43
DX: R10.31 Right lower quadrant pain (principal); R19.7 Diarrhea, unspecified
CPT/HCPCS: 85025; 81001; 36415; 83690; 80053; 74177; Q9967

== ENCOUNTER 2024-01-31 12:49 | Emergency (ER) | payer OTHER ==
[2024-01-31 14:33] LABS: Absolute Basophils 0.1 K/uL (0-0.5); Absolute Lymphocytes (CBC) 1.6 K/uL (0.7-4.9); Absolute Monocytes 0.4 K/uL (0.1-1.3); Absolute Neutrophil 4.1 K/uL (1.8-8.0); Basophils % 0.9 % (0-1.3); Eosinophils % 0.7 % (0-4.4); Hemoglobin 15.2 g/dL (12.0-15.0); MCH 33.2 pg (27.0-35.0); MCHC 33.8 g/dL (32.0-36.0); MCV 98.2 fL (80-100); MPV 9.8 fL (7.6-11.3); Neutrophils % 66.4 % (41.7-73.7); Platelets 196 thou/uL (152-406); RBC Red Blood Cell Count 4.58 M/uL (3.86-4.86); Red Cell Distribution Width 12.7 % (12.1-15.2)
[2024-01-31 15:02] LABS: Albumin/Globulin Ratio 1.1 (1.1-1.8); Anion Gap 8.6 mEq/L (5.0-15.0); Bilirubin Total 0.3 mg/dL (0.2-1.0); Globulin 3.6 g/dL (2.3-3.5); Magnesium 2.2 mg/dL (1.6-2.4); Potassium 3.6 mEq/L (3.5-5.1); Protein, Total 7.6 g/dL (6.4-8.2); Troponin High Sensitivity 11.3 pg/mL (<58.9)
[2024-01-31 15:09] LABS: Specific Gravity 1.005 (1.005-1.030); Sqamous Epithelial <5 /HPF (None Seen); Urine Bacteria <20 /HPF (<20); Urine Bilirubin NEGATIVE (Negative); Urine Blood Negative (Negative); Urine Clarity Turbid (Clear); Urine Color Colorless (Yellow); Urine Culture Reflex Order NOT NEEDED; Urine Glucose NEGATIVE (Negative); Urine Ketones NEGATIVE (Negative); Urine Microscopic Reflex YN ORDER UMIC; Urine Nitrite NEGATIVE (Negative); Urine Protein NEGATIVE (Negative); Urine RBC <5 /HPF (None Seen); Urine Urobilinogen Normal (Normal); Urine WBC <5 /HPF (<5); Urine WBC Clump Rare /HPF (None Seen)
[2024-01-31] MEDS ORDERED: NA CHLORIDE 0.9% 1,000 ML ONE ×2 (15:23→17:31)
[2024-01-31 16:45] LABS: C.diff Antigen/Toxin Ag neg : Tox neg (NEG : NEG); CDIFF INTERNAL NEG CONTROL White Background (WHITE BKGD); STOOL CONSISTENCY Formed/Solid (soft)
--- NOTE | 2024-01-31 16:59 | RAD REPORT ---
EXAMINATION: CT Abdomen Pelvis W Contrast CLINICAL INDICATION: Female, 48 years old. ABD PAIN TECHNIQUE: CT abdomen and pelvis was performed, after the administration of IV contrast, as per [facility]. Axial, sagittal and coronal reconstructions were obtained. One or more of the following dose reduction techniques were used: Automated exposure control, adjustment of the mA and k V according to patient size, and iterative reconstruction. Unless otherwise specified, incidental findings do not require dedicated imaging follow-up. COMPARISON: 01/21/2024 FINDINGS: LOWER CHEST: The visualized lung bases are clear. Stable 5 mm peripheral left lower lobe calcified gr anuloma. LIVER: Normal in size and contour. No focal lesion. BILIARY SYSTEM: Status post cholecystectomy. SPLEEN: Normal size. No focal lesion. PANCREAS: No mass, ductal dilation, or devon-pancreatic fluid. ADRENALS: Normal; no mass. KIDNEYS: Normal size and contour. No hydronephrosis. URINARY BLADDER: Partially decompressed limiting evaluation. GASTROINTESTINAL TRACT: No evidence of free air, significant intra-abdominal free fluid, bowel obstru ction or abscess. APPENDIX: Normal appendix. LYMPH NODES: No lymphadenopathy. MUSCULOSKELETAL: No acute or suspicious osseous abnormality. ADDITIONAL FINDINGS: None. IMPRESSION: No acute or suspicious abnormalities seen in the abdomen or pelvis.
--- NOTE | 2024-01-31 17:22 | RAD REPORT ---
EXAMINATION: US Transvaginal Study Probe CLINICAL INDICATION: Female 48 years old.[facility] MA[facility] unknown vaginal spotting Bed Name: 10 TECHNIQUE: Real-time ultrasonography of the pelvis was performed transvaginally. Color and spectral D oppler evaluation of the ovaries was performed. COMPARISON: No prior exam. FINDINGS: UTERUS AND CERVIX: The uterus measures 6.5 cm in length. Small nabothian cysts seen near the cervix. Heterogeneous myometrial appearance with mild bulky configuration near the fundus, with no discrete masses. The endometrium is normal, 3-4 millimeter in thickness. RIGHT OVARY: Normal The right ovary measures 1.1 x 1.0 x 2.7 cm. Normal color and spectral Doppler evaluation of the right ovary.. LEFT OVARY: Normal The left ovary measures 1.3 x 1.5 x 1.3 cm. Normal color and spectral Doppler evaluation of the left ovary.. FREE FLUID: No free fluid. IMPRESSION: Heterogeneous appearance of the endometrium near the fundus, could indicate indistinct small fibroids . Incidentally noted nabothian cysts.
[2024-01-31] MEDS ORDERED: FAMOTIDINE 20 MG/2 ML VIAL IV ONE (17:30)
[2024-01-31] MEDS ORDERED: ONDANSETRON 4 MG/2 ML VIAL ONE (17:30)
--- NOTE | 2024-01-31 18:17 | EDPHYS ---
Physician Documentation [facility] Name: Susanne Epps Age: 48 yrs Sex: Female : 1975 Arrival Date: 01/31/2024 Time: 12:49 Bed 10 Private MD: EARNESTINE Physician Bartolo Hawkins HPI: 01/30 13:22 This 48 yrs old Female presents to ER via Ambulatory with complaints of Abdominal Pain, cp Buttocks pain. 13:22 The patient presents with abdominal pain that is diffuse. cp 13:22 Onset: The symptoms/episode began/occurred at an unknown time. Associated signs and cp symptoms: Pertinent positives: anorexia, diarrhea, weight loss, watery and grainy stools, Pertinent negatives: blood in stools, fever, vomiting. The symptoms are described as waxing/waning. 13:24 Patient also c/o persistent right buttock pain. denies injury. 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 - Infectious Disease History:: Denies. - Social history:: Smoking status: Patient denies any tobacco usage or history of. ROS: 13:30 Abdomen/GI: Positive for abdominal pain, nausea, diarrhea, Negative for constipation, cp black/tarry stool, rectal bleeding, 13:30 Eyes: Negative for injury, pain, redness, and discharge, cp 13:30 Constitutional: Positive for weight loss, Negative for body aches, fever, 13:30 ENT: Negative for drainage from ear(s), ear pain, sore throat, difficulty swallowing, difficulty handling secretions, 13:30 Cardiovascular: Negative for chest pain, edema, palpitations, 13:30 Respiratory: Negative for cough, shortness of breath, wheezing, 13:30 Back: Positive for radiated pain, Negative for injury or acute deformity, decreased range of motion, 13:30 : Positive for vaginal bleeding, Negative for urinary symptoms, vaginal discharge, 13:30 Neuro: Negative for altered mental status, dizziness, headache, syncope, weakness, 13:30 All other systems are negative, Exam: 13:33 Constitutional: The patient appears in no acute distress, alert, awake, non-toxic, well cp developed, well nourished, uncomfortable, 13:33 Head/Face: Normocephalic, atraumatic. cp 13:33 Eyes: Periorbital structures: appear normal, Conjunctiva: normal, no exudate, no injection, Sclera: no appreciated abnormality, Lids and lashes: appear normal, bilaterally, 13:33 ENT: External ear(s): are unremarkable, Nose: is normal, Mouth: Lips: moist, Oral mucosa: pink and intact, moist, Posterior pharynx: Airway: no evidence of obstruction, patent, 13:33 Neck: ROM/movement: is normal, is supple, without pain, no range of motions limitations, 13:33 Chest/axilla: Inspection: normal, 13:33 Cardiovascular: Rate: normal, Rhythm: regular, Edema: is not appreciated, JVD: is not appreciated, 13:33 Respiratory: the patient does not display signs of respiratory distress, Respirations: normal, no use of accessory muscles, no retractions, labored breathing, is not present, Breath sounds: are clear throughout, no decreased breath sounds, no stridor, no wheezing, 13:33 Abdomen/GI: Inspection: abdomen appears normal, Bowel sounds: active, all quadrants, Palpation: soft, in all quadrants, mild abdominal tenderness, in all quadrants, rebound tenderness, is not appreciated, voluntary guarding, is not appreciated, involuntary guarding, is not appreciated, 13:33 Back: pain, that is mild, of the low back area, CVA tenderness, is absent, 13:33 Neuro: Orientation: to person, place \T\ time. Mentation: is normal, Motor: moves all fours, strength is normal, Sensation: is normal, Gait: is steady, at a normal pace, without difficulty, 18:03 ECG was reviewed by the Attending Physician. cp Vital Signs: 13:08 BP 133 / 99; Pulse 95; Resp 18; Temp 98.7(O); Pulse Ox 100% on R/A; Weight 73.48 kg; ss Height 5 ft. 7 in. ; Pain 5/10; 15:37 BP 137 / 99; Pulse 58; Resp 16; Pulse Ox 100% on R/A; Pain 4/10; tl4 16:24 BP 118 / 87; Pulse 63; Resp 19; Pulse Ox 98% on R/A; tl4 18:07 BP 132 / 93; Pulse 68; Resp 18; Pulse Ox 98% on R/A; tl4 19:40 BP 127 / 92; Pulse 65; Resp 17 S; Pulse Ox 98% on R/A; ha1 13:08 Body Mass Index 25.37 (73.48 kg, 170.18 cm) ss 13:08 Pain Scale: Adult ss 15:37 Pain Scale: Adult tl4 MDM: 13:15 Medical Screening Exam initiated cp 17:00 Differential diagnosis: cholecystitis, Cholelithiasis, diverticulitis, non-specific abd cp pain, pancreatitis, Pyelonephritis, Ureterolithiasis, urinary tract infection. 18:14 Data reviewed: vital signs, nurses notes, lab test result(s), radiologic studies, CT cp scan, ultrasound, and as a result, I will discharge patient. 01/30 13:27 Order name: CBC with Diff; Complete Time: 17:02 cp 01/30 17:03 Interpretation: Normal except: HGB 15.2. cp 01/30 13:27 Order name: CMP; Complete Time: 17:02 cp 01/30 17:03 Interpretation: Normal except: CL 111; CRE 1.05; GFR 65; AST 13; GLOB 3.6. cp 01/30 13:27 Order name: Lipase; Complete Time: 17:02 cp 01/30 13:27 Order name: Test, Urine; Complete Time: 17:02 cp 01/30 13:27 Order name: Urinalysis w/ reflexes; Complete Time: 17:02 cp 01/30 13:27 Order name: Ova And Parasites cp 01/30 13:27 Order name: Rotavirus Antigen; Complete Time: 17:02 cp 01/30 17:03 Interpretation: Reviewed. 01/30 13:27 Order name: Stool Culture cp 01/30 13:27 Order name: CDIFF; Complete Time: 17:02 cp 01/30 17:03 Interpretation: Reviewed. cp 01/30 13:27 Order name: Troponin HS; Complete Time: 17:02 cp 01/30 13:27 Order name: Magnesium; Complete Time: 17:02 01/30 15:43 Order name: CT Abd/Pelvis - IV Contrast Only; Complete Time: 17:02 01/30 17:04 Interpretation: Report reviewed. 01/30 17:09 Order name: Transvaginal Study Probe; Complete Time: 18:01 EDMS 01/30 13:27 Order name: IV Saline Lock; Complete Time: 15:42 cp 01/30 13:27 Order name: Labs collected and sent; Complete Time: 15:42 01/30 13:27 Order name: EKG - Nurse/Tech; Complete Time: 18:05 cp EC:03 Rate is 63 beats/min. Rhythm is regular. DE interval is normal. QRS interval is normal. cp QT interval is normal. T waves are Inverted in leads III, aVR. Interpreted by me. Reviewed by me. Administered Medications: 15:42 Drug: NS 0.9% IV 1000 ml IV at 1 bolus Per protocol; to be given as a bolus over 60 tl4 minutes Route: IV; Rate: 1 bolus; Site: left antecubital; Delivery: Primary tubing; 18:06 Follow up: Response: No adverse reaction; IV Status: Completed infusion; IV Intake: tl4 1000ml 18:05 Drug: Ondansetron IVP 4 mg IVP once; over 2 minutes Route: IVP; Infused Over: 2 mins; tl4 Site: left antecubital; 19:41 Follow up: Response: No adverse reaction; Marked relief of symptoms ha1 18:05 Drug: Famotidine IVP 20 mg IVP once; dilute with 10 mL 0.9% NaCl; give over 2 minutes tl4 Route: IVP; Infused Over: 2 mins; Site: left antecubital; 19:41 Follow up: Response: No adverse reaction; Marked relief of symptoms ha1 18:06 Drug: NS 0.9% IV 1000 ml IV at 1000 ml once; to be given as a bolus over 60 minutes tl4 Route: IV; Rate: 1000 ml; Site: left antecubital; Delivery: Primary tubing; 19:41 Follow up: Response: No adverse reaction; IV Status: Completed infusion; IV Intake: ha1 1000ml Disposition Summary: 01/31/24 18:16 Discharge Ordered Notes: Location: Home cp Problem: new cp Symptoms: have improved cp Condition: Stable cp Diagnosis - Nausea cp - Diarrhea, unspecified cp - Abnormal uterine and vaginal bleeding, unspecified cp - Abdominal pain, unspecified cp Followup: cp - With: Gaston Douglas MD - When: 1 week - Reason: nausea, diarrhea Followup: cp - With: Irish Garcia MD - When: 1 week - Reason: vaginal bleeding Discharge Instructions: - Discharge Summary Sheet cp - Abdominal Pain, Adult cp - Abnormal Uterine Bleeding cp - Food Choices to Help Relieve Diarrhea, Adult cp - Diarrhea, Adult cp - Nausea, Adult cp Forms: - Work release form cp - Medication Reconciliation Form cp - Antibiotic Education cp - Prescription Opioid Use cp - Patient Portal Instructions cp - Leadership Thank You Letter cp Prescriptions: - Ibuprofen 800 mg Oral Tablet - take 1 tablet ORAL route every 8 hours As needed take with food; 30 tablet; cp Refills: 0, Product Selection Permitted - Zofran 4 mg Oral Tablet - take 1 tablet ORAL route every 12 hours As needed; 20 tablet; Refills: 0, cp Product Selection Permitted - dicyclomine 20 mg Oral tablet - take 1 tablet ORAL route 4 times per day; 30 tablet; Refills: 0, Product cp Selection Permitted Signatures: Dispatcher [employer] EDChhaya Pat RN RN ss Bartolo Kurtz, KORIN PA cp Mukesh Benito RN RN tl4 Nell Estrada RN ha1 Corrections: (The following items were deleted from the chart) 13:27 13:27 CBC+H.LAB.BRZ ordered. EDMS EDMS 13:27 13:27 COMPREHENSIVE METABOLIC PANEL+C.LAB.BRZ ordered. EDMS EDMS 13:27 13:27 LIPASE+C.LAB.BRZ ordered. EDMS EDMS 13:27 13:27 Test, Urine+UC.LAB.BRZ ordered. EDMS EDMS 13:27 13:27 Urinalysis+U.LAB.BRZ ordered. EDMS EDMS 13:27 13:27 Ova and Parasites+MR.LAB.BRZ ordered. EDMS EDMS 13:27 13:27 Rotavirus Antigen+BA.LAB.BRZ ordered. EDMS EDMS 13:27 13:27 Stool Culture+BA.LAB.BRZ ordered. EDMS EDMS 13: 13:27 C.difficile GDH Ag \T\ Toxin AB+LAB.BRZ ordered. EDMS EDMS 13:27 Troponin High Sensitivity+C.LAB.BRZ ordered. EDMS EDMS : 13:27 MAGNESIUM+C.LAB.BRZ ordered. EDMS EDMS 15:43 15:43 Pelvis Complete+US.RAD.BRZ ordered. EDMS EDMS 15:43 15:43 Abdomen Pelvis W Con+CT.RAD.BRZ ordered. EDMS EDMS
--- NOTE | 2024-01-31 18:17 | ER ---
Nurse's Notes [facility] Name: Susanne Epps Age: 48 yrs Sex: Female : 1975 Arrival Date: 01/31/2024 Time: 12:49 Bed 10 Private MD: Diagnosis: Nausea;Diarrhea, unspecified;Abnormal uterine and vaginal bleeding, unspecified;Abdominal pain, unspecified Presentation: 01/30 13:08 Chief complaint: Patient states: Pain to R buttock, nausea and diarrhea that began 10 ss days ago. Pt reports she was seen here 10 days ago for the same complaints. Coronavirus screen: Client denies travel out of the [place] in the last 14 days. Ebola Screen: Patient denies exposure to infectious person. Patient denies travel to an Ebola-affected area in the 21 days before illness onset. Initial Sepsis Screen: Does the patient meet any 2 criteria? No. Patient's initial sepsis screen is negative. Does the patient have a suspected source of infection? No. Patient's initial sepsis screen is negative. Risk Assessment: Do you want to hurt yourself or someone else? Patient reports no desire to harm self or others. Onset of symptoms was January 21, 2024. 13:08 Method Of Arrival: Ambulatory ss 13:08 Acuity: JAYDA 3 ss Triage Assessment: 15:39 General: Appears in no apparent distress. 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 - Infectious Disease History:: Denies. - Social history:: Smoking status: Patient denies any tobacco usage or history of. Screenin:38 [facility] ED Fall Risk Assessment (Adult) History of falling in the last 3 months, tl4 including since admission No falls in past 3 months (0 pts) Confusion or Disorientation No (0 pts) Intoxicated or Sedated No (0 pts) Impaired Gait No (0 pts) Mobility Assist Device Used No (0 pt) Altered Elimination No (0 pt) Score/Fall Risk Level 0 - 2 = Low Risk Oriented to surroundings, Maintained a safe environment, Educated pt \T\ family on fall prevention, incl call for assistance when getting out of bed, Assessed \T\ reinforced patient's understanding of fall precautions. Abuse screen: Denies threats or abuse. Denies injuries from another. Nutritional screening: No deficits noted. Tuberculosis screening: No symptoms or risk factors identified. Assessment: 14:55 Reassessment: Patient appears in no apparent distress at this time. Patient and/or db family updated on plan of care and expected duration. Pain level reassessed. Patient is alert, oriented x 3, equal unlabored respirations, skin warm/dry/pink. General: Appears in no apparent distress. comfortable, Behavior is calm, cooperative. 15:35 General: Appears in no apparent distress. Behavior is calm, cooperative. Pain: tl4 Complains of pain in buttocks and abdomen. Neuro: Level of Consciousness is awake, alert, obeys commands, Oriented to person, place, time, situation, Moves all extremities. Full function Gait is steady, Speech is normal, Facial symmetry appears normal. Cardiovascular: Denies chest pain, diaphoresis, fatigue, lightheadedness, nausea, palpitations, shortness of breath, syncope, vomiting. Respiratory: Airway is patent Respiratory effort is even, unlabored, Respiratory pattern is regular, symmetrical, Breath sounds are clear bilaterally. Denies cough, shortness of breath. GI: Bowel sounds present X 4 quads. Abd is soft Abd is non tender Reports diarrhea, nausea, tolerance of fluids, tolerance of food, vomiting. : No signs and/or symptoms were reported regarding the genitourinary system. EENT: No signs and/or symptoms were reported regarding the EENT system. Derm: No signs and/or symptoms reported regarding the dermatologic system. Musculoskeletal: No signs and/or symptoms reported regarding the musculoskeletal system. 18:06 Reassessment: No changes from previously documented assessment. Patient and/or family tl4 updated on plan of care and expected duration. Pain level reassessed. Patient is alert, oriented x 3, equal unlabored respirations, skin warm/dry/pink. Pt denies any needs at this time. Family at bedside. Call manzo at bedside. Will continue to monitor. 19:40 Reassessment: Patient and/or family updated on plan of care and expected duration. Pain ha1 level reassessed. Patient is alert, oriented x 3, equal unlabored respirations, skin warm/dry/pink. Patient states feeling better. Patient states symptoms have improved. Vital Signs: 13:08 BP 133 / 99; Pulse 95; Resp 18; Temp 98.7(O); Pulse Ox 100% on R/A; Weight 73.48 kg; ss Height 5 ft. 7 in. ; Pain 5/10; 15:37 BP 137 / 99; Pulse 58; Resp 16; Pulse Ox 100% on R/A; Pain 4/10; tl4 16:24 BP 118 / 87; Pulse 63; Resp 19; Pulse Ox 98% on R/A; tl4 18:07 BP 132 / 93; Pulse 68; Resp 18; Pulse Ox 98% on R/A; tl4 19:40 BP 127 / 92; Pulse 65; Resp 17 S; Pulse Ox 98% on R/A; ha1 13:08 Body Mass Index 25.37 (73.48 kg, 170.18 cm) ss 13:08 Pain Scale: Adult ss 15:37 Pain Scale: Adult tl4 ED Course: 12:51 Patient arrived in ED. mr 13:10 Triage completed. ss 13:10 Arm band placed on right wrist. ss 13:15 Bartolo Kurtz PA is PHCP. cp 13:15 Bartolo Hawkins MD is Attending Physician. cp 14:15 Initial lab(s) drawn, by me, sent to lab. Inserted saline lock: 20 gauge in left db antecubital area, using aseptic technique. Blood collected. Flushed with 10 mL NS. 14:49 Urine collected: clean catch specimen. db 15:15 Mukesh Benito, RN is Primary Nurse. tl4 15:38 Patient has correct armband on for positive identification. Placed in gown. Bed in low tl4 position. Call light in reach. Side rails up X2. Adult w/ patient. Provided Education on: ed process, call manzo. Client placed on continuous cardiac and pulse oximetry monitoring. NIBP monitoring applied. Door closed. Noise minimized. Lights dimmed. Moved to private room. Warm blanket given. 15:38 No provider procedures requiring assistance completed. tl4 15:41 Ova And Parasites Sent. tl4 15:42 Rotavirus Antigen Sent. tl4 15:42 Stool Culture Sent. tl4 16:33 CT Abd/Pelvis - IV Contrast Only In Process Unspecified. EDMS 17:09 Transvaginal Study Probe In Process Unspecified. EDMS 18:14 Gaston Douglas MD is Referral Physician. cp 18:15 Irish Garcia MD is Referral Physician. cp 19:41 IV discontinued, intact, bleeding controlled, No redness/swelling at site. Pressure ha1 dressing applied. Administered Medications: 15:42 Drug: NS 0.9% IV 1000 ml IV at 1 bolus Per protocol; to be given as a bolus over 60 tl4 minutes Route: IV; Rate: 1 bolus; Site: left antecubital; Delivery: Primary tubing; 18:06 Follow up: Response: No adverse reaction; IV Status: Completed infusion; IV Intake: tl4 1000ml 18:05 Drug: Ondansetron IVP 4 mg IVP once; over 2 minutes Route: IVP; Infused Over: 2 mins; tl4 Site: left antecubital; 19:41 Follow up: Response: No adverse reaction; Marked relief of symptoms ha1 18:05 Drug: Famotidine IVP 20 mg IVP once; dilute with 10 mL 0.9% NaCl; give over 2 minutes tl4 Route: IVP; Infused Over: 2 mins; Site: left antecubital; 19:41 Follow up: Response: No adverse reaction; Marked relief of symptoms ha1 18:06 Drug: NS 0.9% IV 1000 ml IV at 1000 ml once; to be given as a bolus over 60 minutes tl4 Route: IV; Rate: 1000 ml; Site: left antecubital; Delivery: Primary tubing; 19:41 Follow up: Response: No adverse reaction; IV Status: Completed infusion; IV Intake: ha1 1000ml Medication: 15:38 VIS not applicable for this client. tl4 Intake: 18:06 IV: 1000ml; Total: 1000ml. tl4 19:41 IV: 1000ml; Total: 2000ml. ha1 Outcome: 18:16 Discharge ordered by . cp 19:40 Discharged to home ambulatory, with family, ha1 19:40 Condition: stable 19:40 Discharge instructions given to patient, family, Instructed on discharge instructions, follow up and referral plans. medication usage, Demonstrated understanding of instructions, follow-up care, medications, Prescriptions given X 3, 19:42 Patient left the ED. ha1 Signatures: Dispatcher [employer] EDMA Yamile Camarena, Reg Reg mr Chhaya Herrera, RN RN Bartolo Moore PA PA cp Ayala, Heidy, RN RN ha1 Matilde Brown RN RN db Mukesh Benito RN RN tl4
[2024-02-01 03:07] VITALS: TEMP 98.7
[2024-02-01 03:10] VITALS: O2SAT 98
[2024-02-01 03:12] VITALS: BP 127/92
--- NOTE | 2024-02-01 14:13 | EKG ---
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
== END 2024-01-31 19:42 | disposition home or self-care (01) ==
LOC: ER 12:49
DX: R11.0 Nausea (principal); R19.7 Diarrhea, unspecified; N93.9 Abnormal uterine and vaginal bleeding, unspecified; R10.9 Unspecified abdominal pain
CPT/HCPCS: 96361; 93005; 87045; 85025; 81001; 36415; 83735; 87177; 81025; 87046; 87209; 87324; 84484; 83690; 80053; 87425; 74177; 76830; 96375; 96374; 99284; Q9967; J2405; J7030 ×2

== ENCOUNTER 2024-04-03 18:13 | Emergency (ER) | payer OTHER ==
[2024-04-03] MEDS ORDERED: KETOROLAC 30 MG/ML INJ ONE (20:37)
[2024-04-03] MEDS ORDERED: PROMETHAZINE INJ 25 MG/ML AMP ONE (20:37)
[2024-04-03] MEDS ORDERED: NA CHLORIDE 0.9% 1,000 ML ONE (20:37)
[2024-04-03 20:47] LABS: Absolute Lymphocytes (CBC) 2.2 K/uL (0.7-4.9); Absolute Monocytes 0.4 K/uL (0.1-1.3); Absolute Neutrophil 4.3 K/uL (1.8-8.0); Basophils % 0.6 % (0-1.3); Eosinophils % 0.6 % (0-4.4); Hematocrit 41.5 % (36.0-45.0); MCHC 33.6 g/dL (32.0-36.0); MCV 98.2 fL (80-100); MPV 9.3 fL (7.6-11.3); Neutrophils % 61.8 % (41.7-73.7); Platelets 226 thou/uL (152-406); RBC Red Blood Cell Count 4.23 M/uL (3.86-4.86); Red Cell Distribution Width 13.5 % (12.1-15.2)
[2024-04-03 21:02] LABS: Sqamous Epithelial <5 /HPF (None Seen); Urine Bacteria <20 /HPF (<20); Urine Bilirubin NEGATIVE (Negative); Urine Blood Negative (Negative); Urine Clarity Extremely Turbid (Clear); Urine Color Colorless (Yellow); Urine Crystals Unidentified Few /HPF (None Seen); Urine Culture Reflex Order REFLEXED; Urine Glucose NEGATIVE (Negative); Urine Ketones NEGATIVE (Negative); Urine Microscopic Reflex YN ORDER UMIC; Urine Nitrite NEGATIVE (Negative); Urine Protein NEGATIVE (Negative); Urine RBC <5 /HPF (None Seen); Urine Urobilinogen Normal (Normal); Urine Yeast (Budding) Trace /HPF (None Seen); Urine pH 7.5 (5.0-7.0)
[2024-04-03 21:02] LABS: Albumin 3.8 g/dL (3.4-5.0); Anion Gap 6.4 mEq/L (5.0-15.0); Bilirubin Total 0.4 mg/dL (0.2-1.0); Globulin 3.7 g/dL (2.3-3.5); Potassium 3.4 mEq/L (3.5-5.1); Protein, Total 7.5 g/dL (6.4-8.2)
--- NOTE | 2024-04-03 23:13 | EDPHYS ---
Physician Documentation [facility] Name: Susanne Epps Age: 49 yrs Sex: Female : 1975 Arrival Date: 04/03/2024 Time: 18:13 Bed 14 Private MD: ED Physician Chiki Morales HPI: 04/03 20:24 This 49 yrs old Female presents to ER via Ambulatory with complaints of sp4 Nausea/Vomiting/Diarrhea. 23:02 Patient is a very pleasant 49-year-old female who presents with persistent nausea sp4 vomiting and diarrhea today. Patient has been feeling unwell since November 24, 2023. Patient does have scheduled appointment with automobile [facility] Dr. Baum for evaluation of persistent nausea vomiting. . 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 - Infectious Disease History:: Denies. - Family history:: not pertinent. - Social history:: Smoking status: unknown. ROS: 23:02 Constitutional: Negative for fever, chills, and weight loss, positive nausea, positive sp4 vomiting, positive diarrhea 23:02 All other systems are negative, Exam: 23:02 Constitutional: This is a well developed, well nourished patient who is awake, alert, sp4 and in no acute distress. Head/Face: Normocephalic, atraumatic. Eyes: Pupils equal round and reactive to light, extra-ocular motions intact. Lids and lashes normal. Conjunctiva and sclera are not injected. Cornea within normal limits. Periorbital areas with no swelling, redness, or edema. ENT: Nares patent. No nasal discharge, no septal abnormalities noted. Tympanic membranes are normal and external auditory canals are clear. Oropharynx with no redness, swelling, or masses, exudates, or evidence of obstruction, uvula midline. Mucous membranes moist. Neck: Trachea midline, no thyromegaly or masses palpated, and no cervical lymphadenopathy. Supple, full range of motion without nuchal rigidity, or vertebral point tenderness. Chest/axilla: Normal chest wall appearance and motion. Nontender with no deformity. No lesions are appreciated. Cardiovascular: Regular rate and rhythm with a normal S1 and S2. No gallops, murmurs, or rubs. Normal PMI, no JVD. No pulse deficits. Respiratory: Lungs have equal breath sounds bilaterally, clear to auscultation and percussion. No rales, rhonchi or wheezes noted. No increased work of breathing, no retractions or nasal flaring. Abdomen/GI: Soft, with normal bowel sounds. No distension or tympany. No guarding or rebound. No evidence of tenderness throughout. Back: No spinal tenderness. No costovertebral tenderness. Skin: Warm, dry with normal turgor. Normal color with no rashes, no lesions, and no evidence of cellulitis. MS/ Extremity: Pulses equal, no cyanosis. Neurovascular intact. Full, normal range of motion. Neuro: Awake and alert, GCS 15, oriented to person, place, time, and situation. Cranial nerves II-XII grossly intact. Motor strength 5/5 in all extremities. Sensory grossly intact. Psych: Awake, alert, with orientation to person, place and time. Behavior, mood, and affect are within normal limits Vital Signs: 18:56 BP 138 / 85; Pulse 59; Resp 18; Temp 98.4; Pulse Ox 100% on R/A; Weight 68.95 kg; ph Height 5 ft. 7 in. ; 19:30 BP 135 / 89; Pulse 56; Resp 18; Pulse Ox 100% ; kj2 20:30 BP 115 / 72; Pulse 63; Resp 20; Pulse Ox 98% on R/A; kj2 21:00 BP 107 / 80; Pulse 63; Resp 20; Pulse Ox 99% on R/A; kj2 22:00 BP 105 / 84; Pulse 56; Resp 18; Pulse Ox 100% on R/A; kj2 23:33 BP 116 / 82; Pulse 60; Resp 18; Temp 98; Pulse Ox 100% ; kj2 18:56 Body Mass Index 23.81 (68.95 kg, 170.18 cm) ph [place] Coma Score: 23:02 Eye Response: spontaneous(4). Motor Response: obeys commands(6). Verbal Response: sp4 oriented(5). Total: 15. MDM: 18:53 Medical Screening Exam initiated sd2 23:11 Differential diagnosis: Nonspecific abd pain, gastritis, pancreatitis, viral sp4 gastroenteritis, gastroenteritis. Data reviewed: vital signs, nurses notes, lab test result(s), electrolytes, hepatic panel. Consideration of Admission/Observation Escalation of care including admission/observation considered. ED course: Patient is feeling better after Phenergan. Will discharge home with as needed Reglan and as needed Phenergan. . 23:14 ED course: Patient improved after IV hydration. Stable for discharge home.. sp4 04/03 19:18 Order name: CBC with Diff; Complete Time: 22:29 sd2 04/03 19:18 Order name: CMP; Complete Time: 22:29 sd2 04/03 19:18 Order name: Lipase; Complete Time: :29 sd2 04/03 19:18 Order name: Urinalysis w/ reflexes; Complete Time: :29 sd2 04/03 21:05 Order name: Urine Culture EDMS Administered Medications: 20:00 Drug: NS 0.9% IV 1000 ml IV at 1 bolus Per protocol; to be given as a bolus over 60 kj2 minutes Route: IV; Rate: 1 bolus; Site: left antecubital; 21:00 Follow up: IV Status: Completed infusion; IV Intake: 1000ml kj2 20:00 Drug: Ketorolac IVP 15 mg IVP once Route: IVP; Site: left antecubital; kj2 23:04 Follow up: Response: No adverse reaction kj2 20:00 Drug: Promethazine IVP 12.5 mg IVP once Route: IVP; Site: left antecubital; kj2 23:04 Follow up: Response: No adverse reaction kj2 Disposition Summary: 04/03/24 23:12 Discharge Ordered Notes: Location: Home sp4 Problem: new sp4 Symptoms: have improved sp4 Condition: Stable sp4 Diagnosis - Nausea with vomiting, unspecified sp4 - Acute Gastroenteritis sp4 Followup: sp4 - With: Private Physician - When: 7 - 10 days - Reason: Recheck today's complaints Followup: sp4 - With: Rhys Boss MD - When: 7 - 10 days - Reason: Recheck today's complaints Discharge Instructions: - Discharge Summary Sheet sp4 - Nausea and Vomiting, Adult sp4 Forms: - Patient Portal Instructions sp4 Prescriptions: - Reglan 10 mg Oral tablet - take 1 tablet ORAL route every 6 hours PRN nausea; 60 tablet; Refills: 0, sp4 Product Selection Permitted - promethazine 25 mg Oral tablet - take 1 tablet ORAL route every 6 hours As needed PRN nausea; 30 tablet; sp4 Refills: 0, Product Selection Permitted Signatures: Dispatcher [employer] Nidhi Donovan, ELIS RN ph Viv Javed MD MD sd2 Chiki Morales MD MD sp4 Zainab Vázquez RN RN kj2
--- NOTE | 2024-04-03 23:13 | ER ---
Nurse's Notes [facility] Name: Susanne Epps Age: 49 yrs Sex: Female : 1975 Arrival Date: 04/03/2024 Time: 18:13 Bed 14 Private MD: Diagnosis: Nausea with vomiting, unspecified;Acute Gastroenteritis Presentation: 04/03 18:56 Chief complaint: Patient states: N/V/D and lower abdominal pain that started yesterday, ph but has been an ongoing issue for a few months, has endoscopy scheduled next month. Coronavirus screen: Vaccine status: Patient reports receiving the 2nd dose of the covid vaccine. Ebola Screen: No symptoms or risks identified at this time. Initial Sepsis Screen: Does the patient meet any 2 criteria? No. Patient's initial sepsis screen is negative. Does the patient have a suspected source of infection? No. Patient's initial sepsis screen is negative. Risk Assessment: Do you want to hurt yourself or someone else? Patient reports no desire to harm self or others. Onset of symptoms was April 03, 2024. 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 - Infectious Disease History:: Denies. - Family history:: not pertinent. - Social history:: Smoking status: unknown. Screenin:30 [place] ED Fall Risk Assessment (Adult) History of falling in the last 3 months, kj2 including since admission No falls in past 3 months (0 pts) Confusion or Disorientation No (0 pts) Intoxicated or Sedated No (0 pts) Impaired Gait No (0 pts) Mobility Assist Device Used No (0 pt) Altered Elimination No (0 pt) Score/Fall Risk Level 0 - 2 = Low Risk Maintained a safe environment, Hourly rounding (assess needs \T\ fall precautionary measures) done. Abuse screen: Denies threats or abuse. Denies injuries from another. Nutritional screening: No deficits noted. Tuberculosis screening: No symptoms or risk factors identified. Assessment: 19:05 General: Appears in no apparent distress. uncomfortable, Behavior is calm, cooperative. kj2 Pain: Complains of pain in abdomen Pain currently is 6 out of 10 on a pain scale. Neuro: Level of Consciousness is awake, alert, obeys commands, Oriented to person, place, time, situation. Cardiovascular: Patient's skin is warm and dry. Respiratory: Airway is patent Respiratory effort is even, unlabored. GI: Abdomen is non-distended, Reports nausea, vomiting. : No signs and/or symptoms were reported regarding the genitourinary system. 19:20 Reassessment: Patient appears in no apparent distress at this time. Patient and/or kj2 family updated on plan of care and expected duration. Pain level reassessed. Patient is alert, oriented x 3, equal unlabored respirations, skin warm/dry/pink. 20:00 Reassessment: Patient appears in no apparent distress at this time. Patient and/or kj2 family updated on plan of care and expected duration. Pain level reassessed. Patient is alert, oriented x 3, equal unlabored respirations, skin warm/dry/pink. 20:58 Reassessment: Patient appears in no apparent distress at this time. Patient and/or kj2 family updated on plan of care and expected duration. Pain level reassessed. Patient is alert, oriented x 3, equal unlabored respirations, skin warm/dry/pink. 22:00 Reassessment: Patient appears in no apparent distress at this time. Patient and/or kj2 family updated on plan of care and expected duration. Pain level reassessed. Patient is alert, oriented x 3, equal unlabored respirations, skin warm/dry/pink. 23:33 Reassessment: Patient appears in no apparent distress at this time. Patient and/or kj2 family updated on plan of care and expected duration. Pain level reassessed. Patient is alert, oriented x 3, equal unlabored respirations, skin warm/dry/pink. Vital Signs: 18:56 BP 138 / 85; Pulse 59; Resp 18; Temp 98.4; Pulse Ox 100% on R/A; Weight 68.95 kg; ph Height 5 ft. 7 in. ; 19:30 BP 135 / 89; Pulse 56; Resp 18; Pulse Ox 100% ; kj2 20:30 BP 115 / 72; Pulse 63; Resp 20; Pulse Ox 98% on R/A; kj2 21:00 BP 107 / 80; Pulse 63; Resp 20; Pulse Ox 99% on R/A; kj2 22:00 BP 105 / 84; Pulse 56; Resp 18; Pulse Ox 100% on R/A; kj2 23:33 BP 116 / 82; Pulse 60; Resp 18; Temp 98; Pulse Ox 100% ; kj2 18:56 Body Mass Index 23.81 (68.95 kg, 170.18 cm) ph [place] Coma Score: 23:02 Eye Response: spontaneous(4). Motor Response: obeys commands(6). Verbal Response: sp4 oriented(5). Total: 15. ED Course: 18:15 Patient arrived in ED. ra3 18:31 Viv Javed MD is Attending Physician. sd2 18:41 Nidhi Rivera, RN is Primary Nurse. ph 18:58 Triage completed. ph 19:10 Report received from ELIS Terrell. kj2 19:30 Patient has correct armband on for positive identification. Bed in low position. Call kj2 light in reach. Adult w/ patient. Provided Education on: call light. 19:30 Arm band placed on Patient placed in an exam room, on a stretcher. kj2 19:55 Inserted saline lock: 20 gauge in left antecubital area, using aseptic technique. Blood kj2 collected. Flushed with 10 mL NS. 20:24 Attending Physician role handed off by Viv Javed MD sp4 20:24 Chiki Morales MD is Attending Physician. sp4 20:58 Lipase Sent. kj2 20:58 CMP Sent. kj2 23:12 Rhys Boss MD is Referral Physician. sp4 23:34 No provider procedures requiring assistance completed. IV discontinued, intact, kj2 bleeding controlled, No redness/swelling at site. Pressure dressing applied. Administered Medications: 20:00 Drug: NS 0.9% IV 1000 ml IV at 1 bolus Per protocol; to be given as a bolus over 60 kj2 minutes Route: IV; Rate: 1 bolus; Site: left antecubital; 21:00 Follow up: IV Status: Completed infusion; IV Intake: 1000ml kj2 20:00 Drug: Ketorolac IVP 15 mg IVP once Route: IVP; Site: left antecubital; kj2 23:04 Follow up: Response: No adverse reaction kj2 20:00 Drug: Promethazine IVP 12.5 mg IVP once Route: IVP; Site: left antecubital; kj2 23:04 Follow up: Response: No adverse reaction kj2 Medication: 19:30 VIS not applicable for this client. kj2 Intake: 21:00 IV: 1000ml; Total: 1000ml. kj2 Outcome: 23:12 Discharge ordered by . sp4 23:34 Condition: stable kj2 23:34 Discharge instructions given to patient, Instructed on discharge instructions, follow up and referral plans. medication usage, 23:35 Discharged to home ambulatory, with family, kj2 23:42 Patient left the ED. kj2 Addendum: 04/09/2024 15:09 Addendum: Culture Results: Positive urine culture. No further action required. Other: j l7 pt to followup with PCP, no reported S\T\S of UTI. Signatures: Nidhi Rivera RN RN Sondra Gonzalez RN RN jl7 Viv Javed MD MD sd2 Chiki Morales MD MD sp4 Kelsey Quick ra3 Zainab Vázquez RN RN kj2 Corrections: (The following items were deleted from the chart) 04/03 22:44 22:00 BP 95 / 50; Pulse 56bpm; Resp 18bpm; Pulse Ox 94% RA; kj2 kj2
[2024-04-03 23:59] VITALS: O2SAT 100
[2024-04-04 00:15] VITALS: BP 116/82; TEMP 98
== END 2024-04-03 23:42 | disposition home or self-care (01) ==
LOC: ER 18:13
DX: K52.9 Noninfective gastroenteritis and colitis, unspecified (principal)
CPT/HCPCS: 96361; 87088; 85025; 81001; 87086; 36415; 87077 ×2; 87186 ×2; 83690; 80053; 96375; 96374; 99284; J2550; J7030

== ENCOUNTER 2024-06-11 12:26 | Emergency (ER) | payer OTHER ==
[2024-06-11] MEDS ORDERED: ONDANSETRON 4 MG/2 ML VIAL ONE (14:05)
[2024-06-11] MEDS ORDERED: NA CHLORIDE 0.9% 1,000 ML ONE (14:05)
[2024-06-11] MEDS ORDERED: FAMOTIDINE 20 MG/2 ML VIAL IV ONE (14:05)
[2024-06-11 14:11] LABS: Specific Gravity 1.027 (1.005-1.030); Sqamous Epithelial <5 /HPF (None Seen); Urine Bacteria <20 /HPF (<20); Urine Bilirubin NEGATIVE (Negative); Urine Blood Negative (Negative); Urine Clarity Turbid (Clear); Urine Color Yellow (Yellow); Urine Culture Reflex Order NOT NEEDED; Urine Glucose NEGATIVE (Negative); Urine Ketones 1+ (Negative); Urine Microscopic Reflex YN ORDER UMIC; Urine Mucus Slight /HPF (None Seen); Urine Nitrite NEGATIVE (Negative); Urine Protein TRACE (Negative); Urine RBC <5 /HPF (None Seen); Urine Urobilinogen Normal (Normal); Urine WBC <5 /HPF (<5); Urine pH 5.5 (5.0-7.0)
[2024-06-11 14:14] LABS: Absolute Monocytes 0.3 K/uL (0.1-1.3); Absolute Neutrophil 4.1 K/uL (1.8-8.0); Basophils % 0.7 % (0-1.3); Eosinophils % 0.7 % (0-4.4); Hematocrit 41.5 % (36.0-45.0); Hemoglobin 14.1 g/dL (12.0-15.0); Lymphocytes % 30.6 % (15.3-44.8); MCH 33.7 pg (27.0-35.0); MCV 99.3 fL (80-100); MPV 9.4 fL (7.6-11.3); Monocytes % 5.4 % (3.3-12.3); Neutrophils % 62.6 % (41.7-73.7); Nucleated Red Blood Cells % 0.1 % (0-0); Platelets 220 thou/uL (152-406); RBC Red Blood Cell Count 4.18 M/uL (3.86-4.86)
[2024-06-11 14:15] LABS: PT Prothrombin Time 11.4 SECONDS (10.0-13.0)
[2024-06-11 14:28] LABS: ALT/SGPT 21 U/L (13-56); AST/SGOT 13 U/L (15-37); Albumin 3.7 g/dL (3.4-5.0); Albumin/Globulin Ratio 1.1 (1.1-1.8); Alkaline Phosphatase 63 U/L (45-117); Anion Gap 6.8 mEq/L (5.0-15.0); BUN Blood Urea Nitrogen 14 mg/dL (7-18); Bicarbonate 27 mEq/L (21-32); Bilirubin Total 0.3 mg/dL (0.2-1.0); Globulin 3.3 g/dL (2.3-3.5); Glomerular Filtration Rate 61 ml/min (=/>90); Glucose Level 90 mg/dL (74-106); Lipase 38 U/L (13-75); Magnesium 2.1 mg/dL (1.6-2.4); NT PRO-BNP 286 pg/mL (<125); Potassium 3.8 mEq/L (3.5-5.1); Sodium Level 140 mEq/L (136-145); Troponin High Sensitivity 8.5 pg/mL (<58.9)
--- NOTE | 2024-06-11 14:29 | RAD REPORT ---
EXAM: Chest Single View HISTORY: 49 years Female ABDOMINAL DISTENTION COMPARISON: None. FINDINGS: LUNGS/PLEURA: The lungs are clear. No pleural effusions or pneumothorax. No pulmonary edema. CARDIAC/MEDIASTINUM: The cardiac silhouette is within normal limits. UPPER ABDOMEN: No significant abnormality. BONES: No acute abnormality. LINES/TUBES/OTHER: N/A IMPRESSION: No evidence of acute cardiopulmonary disease.
[2024-06-11 14:39] LABS: Bilirubin Direct < 0.2 mg/dL (0-0.2); Bilirubin Indirect, Calculated 0.1 mg/dL (0.2-0.8)
--- NOTE | 2024-06-11 15:16 | RAD REPORT ---
EXAMINATION: CT ABDOMEN AND PELVIS WITH CONTRAST CLINICAL INDICATION: Female, 49 years old.ABD PAIN TECHNIQUE: CT abdomen and pelvis was performed, after the administration of IV contrast, as per [facility] protocol. Axial, sagittal and coronal reconstructions were obtained. One or more of the following dose reduction techniques were used: Automated exposure control, adjustment of the mA and/o r kV according to patient size, and/or iterative reconstruction. Unless otherwise specified, incidental findings do not require dedicated imaging follow-up. [id number]. COMPARISON: 01/31/2024 FINDINGS: LOWER CHEST: No acute process identified.No significant pericardial effusion. Mild circumferential th ickening of the distal esophagus which could reflect esophagitis. UPPER GI: No significant abnormality. LIVER: Hepatic steatosis, but otherwise unremarkable. GALLBLADDER/BILE DUCTS: Cholecystectomy. Mild extra-hepatic biliary ductal dilatation is likely relat ed to the post-cholecystectomy state. Consider correlating with LFT's.? PANCREAS: No mass, ductal dilation, or devon-pancreatic fluid. SPLEEN: Unremarkable. ADRENALS: No adrenal masses. KIDNEYS AND URETERS: No hydronephrosis.No suspicious renal mass.No renal calculi. ABDOMINAL AORTA AND OTHER VESSELS: Normal caliber aorta and IVC. PERITONEUM: No abnormal free fluid. No free air. LYMPH NODES: No pathologic lymphadenopathy. ABDOMINAL WALL: Unremarkable SMALL BOWEL/COLON: Small bowel has normal course and caliber. No colonic wall thickening or pericolon ic inflammatory changes.Normal appendix. Mild diverticulosis without diverticulitis. Mild formed stool burden. URINARY BLADDER: Underdistended but grossly unremarkable. REPRODUCTIVE ORGANS: No pathologic process. MUSCULOSKELETAL: Multilevel degenerative changes in the spine. No acute fracture. ADDITIONAL FINDINGS: None. IMPRESSION: No acute findings within the abdomen or pelvis. No appendicitis. Incidental findings as noted above.
--- NOTE | 2024-06-11 17:29 | ER ---
[facility] Name: Susanne Epps Age: 49 yrs Sex: Female : 1975 Arrival Date: 06/11/2024 Time: 12:26 Bed 9 Private MD: Diagnosis: Abdominal pain, Generalized;Vomiting Presentation: 06/11 13:00 Chief complaint: Patient states: Nausea and vomiting that have been ongoing since cm10 January. Pt states that she is on 6 different medications for nausea and vomiting and continues to vomit. Pt reports abdominal pain. Coronavirus screen: Client denies travel out of the [place] in the last 14 days. Ebola Screen: Patient denies travel to an Ebola-affected area in the 21 days before illness onset. Initial Sepsis Screen: Does the patient meet any 2 criteria? No. Patient's initial sepsis screen is negative. Does the patient have a suspected source of infection? No. Patient's initial sepsis screen is negative. Risk Assessment: Do you want to hurt yourself or someone else? Patient reports no desire to harm self or others. Onset of symptoms was January 2024. 13:00 Method Of Arrival: Ambulatory cm10 13:00 Acuity: JAYDA 3 cm10 Triage Assessment: 13:01 General: Appears in no apparent distress. uncomfortable, Behavior is calm, cooperative. cm10 Pain: Complains of pain in abdomen Pain currently is 4 out of 10 on a pain scale. Neuro: No deficits noted. Level of Consciousness is awake, alert, obeys commands, Oriented to person, place, time, situation, Appropriate for age. Respiratory: No deficits noted. Airway is patent Respiratory effort is even, unlabored, Respiratory pattern is regular, symmetrical. GI: Reports nausea, vomiting. Historical: - Allergies: 13:01 Dilantin; cm10 13:01 PENICILLINS; cm10 13:01 Topamax; cm10 - PMHx: 13:01 Anxiety; depressive disorder; Seizures; cm10 - PSHx: 13:01 bilateral hand; CMC arthritis; Cholecystectomy; cm10 - Immunization history:: Adult Immunizations up to date. - Infectious Disease History:: Denies. - Social history:: Smoking status: Patient denies any tobacco usage or history of. Screenin:20 [facility] ED Fall Risk Assessment (Adult) History of falling in the last 3 months, jb4 including since admission No falls in past 3 months (0 pts) Confusion or Disorientation No (0 pts) Intoxicated or Sedated No (0 pts) Impaired Gait No (0 pts) Mobility Assist Device Used No (0 pt) Altered Elimination No (0 pt) Score/Fall Risk Level 0 - 2 = Low Risk Oriented to surroundings, Maintained a safe environment. Abuse screen: Denies threats or abuse. Nutritional screening: No deficits noted. Tuberculosis screening: No symptoms or risk factors identified. Assessment: 15:59 Reassessment: Patient appears in no apparent distress at this time. Patient and/or jb4 family updated on plan of care and expected duration. Pain level reassessed. Patient is alert, oriented x 3, equal unlabored respirations, skin warm/dry/pink. 17:00 Reassessment: Patient appears in no apparent distress at this time. Patient and/or jb4 family updated on plan of care and expected duration. Pain level reassessed. Patient is alert, oriented x 3, equal unlabored respirations, skin warm/dry/pink. 18:00 Reassessment: Patient appears in no apparent distress at this time. Patient and/or jb4 family updated on plan of care and expected duration. Pain level reassessed. Patient is alert, oriented x 3, equal unlabored respirations, skin warm/dry/pink. Vital Signs: 13:00 BP 146 / 102; Pulse 71; Resp 15; Temp 98.7(O); Pulse Ox 100% on R/A; Weight 64.86 kg; cm10 Height 5 ft. 7 in. ; Pain 4/10; 13:00 Body Mass Index 22.40 (64.86 kg, 170.18 cm) cm10 13:00 Pain Scale: Adult cm10 ED Course: 12:29 Patient arrived in ED. al6 12:36 Bartolo Hawkins MD is Attending Physician. walker 13:01 Triage completed. cm10 13:01 Arm band placed on right wrist. Patient placed in waiting room. cm10 14:03 Inserted saline lock: 22 gauge in left antecubital area, using aseptic technique. Blood ss collected. Flushed with 10 mL NS. 14:24 XRAY Chest (1 view) In Process Unspecified. EDMS 14:52 CT Abd/Pelvis - IV Contrast Only In Process Unspecified. EDMS 17:25 Rhys Boss MD is Referral Physician. [facility] 18:20 Patient has correct armband on for positive identification. Bed in low position. Call jb4 light in reach. Side rails up X 1. Provided Education on: discharge instructions.. 18:20 No provider procedures requiring assistance completed. IV discontinued, intact, jb4 bleeding controlled, No redness/swelling at site. Pressure dressing applied. Administered Medications: 14:15 Not Given (Other Intervention Used): ondansetron 8 mg IVP once; over 2 minutes ss 14:15 Drug: Ondansetron IVP 4 mg IVP once; over 2 minutes {Note: 4 mg given as patient has ss already had 8 mg this morning .} Route: IVP; Site: left antecubital; 15:00 Follow up: Response: No adverse reaction; Marked relief of symptoms jb4 14:16 Drug: NS 0.9% IV 1000 ml IV at 1 bolus Per protocol; to be given as a bolus over 60 ss minutes Route: IV; Rate: 1 bolus; Site: left antecubital; 15:16 Follow up: Response: No adverse reaction; IV Status: Completed infusion; IV Intake: jb4 1000ml 14:16 Not Given (PT states she takes nightly pepcid. Dr. Hawkins notifiedd): [id number] mg ss IVP once; dilute with 10 mL 0.9% NaCl; give over 2 minutes Medication: 18:00 VIS not applicable for this client. jb4 Intake: 15:16 IV: 1000ml; Total: 1000ml. jb4 Outcome: 17:28 Discharge ordered by . [facility] 18:20 Discharged to home ambulatory, with family, jb 18:20 Condition: stable 18:20 Discharge instructions given to patient, Instructed on discharge instructions, follow up and referral plans. medication usage, Demonstrated understanding of instructions, follow-up care, medications, Prescriptions given X 3, 18:20 Patient left the ED. jb4 Signatures: Dispatcher [employer] EDMS Bartolo Hawkins MD MD cha Blanchard, Shelby RN RN Ayo Jalloh RN RN jb4 Phoenix Hernández RN RN ll1 Rebekah Da Silva RN RN cm10 Keely [email or web address] Corrections: (The following items were deleted from the chart) 13:53 13:51 Patient placed in an exam room, on a stretcher, ll1 ll1
--- NOTE | 2024-06-11 17:29 | EDPHYS ---
Physician Documentation [facility] Name: Susanne Epps Age: 49 yrs Sex: Female : 1975 Arrival Date: 06/11/2024 Time: 12:26 Bed 9 Private MD: EARNESTINE Physician Bartolo Hawkins HPI: 06/11 17:21 This 49 yrs old Female presents to ER via Ambulatory with complaints of walker Nausea/Vomiting, Abdominal Pain. Historical: - Allergies: 13:01 Dilantin; cm10 13:01 PENICILLINS; cm10 13:01 Topamax; cm10 - PMHx: 13:01 Anxiety; depressive disorder; Seizures; cm10 - PSHx: 13:01 bilateral hand; CMC arthritis; Cholecystectomy; cm10 - Immunization history:: Adult Immunizations up to date. - Infectious Disease History:: Denies. - Social history:: Smoking status: Patient denies any tobacco usage or history of. ROS: 17:22 Constitutional: Negative for fever, chills, and weight loss, Eyes: Negative for injury, walker pain, redness, and discharge, ENT: Negative for injury, pain, and discharge, Neck: Negative for injury, pain, and swelling, Cardiovascular: Negative for chest pain, palpitations, and edema, Respiratory: Negative for shortness of breath, cough, wheezing, and pleuritic chest pain, Back: Negative for injury and pain, : Negative for injury, bleeding, discharge, and swelling, MS/Extremity: Negative for injury and deformity, Skin: Negative for injury, rash, and discoloration, Neuro: Negative for headache, weakness, numbness, tingling, and seizure, Psych: Negative for depression, anxiety, suicide ideation, homicidal ideation, and hallucinations, Allergy/Immunology: Negative for hives, rash, and allergies, Endocrine: Negative for neck swelling, polydipsia, polyuria, polyphagia, and marked weight changes, Hematologic/Lymphatic: Negative for swollen nodes, abnormal bleeding, and unusual bruising, 17:22 Abdomen/GI: Positive for abdominal pain, nausea and vomiting, diarrhea, Exam: 17:22 Constitutional: This is a well developed, well nourished patient who is awake, alert, walker and in no acute distress. Head/Face: Normocephalic, atraumatic. Eyes: Pupils equal round and reactive to light, extra-ocular motions intact. Lids and lashes normal. Conjunctiva and sclera are non-icteric and not injected. Cornea within normal limits. Periorbital areas with no swelling, redness, or edema. ENT: Nares patent. No nasal discharge, no septal abnormalities noted. Tympanic membranes are normal and external auditory canals are clear. Oropharynx with no redness, swelling, or masses, exudates, or evidence of obstruction, uvula midline. Mucous membranes moist. Neck: Trachea midline, no thyromegaly or masses palpated, and no cervical lymphadenopathy. Supple, full range of motion without nuchal rigidity, or vertebral point tenderness. No Meningismus. Chest/axilla: Normal chest wall appearance and motion. Nontender with no deformity. No lesions are appreciated. Cardiovascular: Regular rate and rhythm with a normal S1 and S2. No gallops, murmurs, or rubs. Normal PMI, no JVD. No pulse deficits. Respiratory: Lungs have equal breath sounds bilaterally, clear to auscultation and percussion. No rales, rhonchi or wheezes noted. No increased work of breathing, no retractions or nasal flaring. Back: No spinal tenderness. No costovertebral tenderness. Full range of motion. Female : Normal external genitalia. Skin: Warm, dry with normal turgor. Normal color with no rashes, no lesions, and no evidence of cellulitis. MS/ Extremity: Pulses equal, no cyanosis. Neurovascular intact. Full, normal range of motion., bilateral aka Neuro: Awake and alert, GCS 15, oriented to person, place, time, and situation. Cranial nerves II-XII grossly intact. Motor strength 5/5 in all extremities. Sensory grossly intact. Cerebellar exam normal. Normal gait. Psych: Awake, alert, with orientation to person, place and time. Behavior, mood, and affect are within normal limits. 17:22 ECG was reviewed by the Attending Physician. 17:22 Abdomen/GI: Inspection: abdomen appears normal, Bowel sounds: normal, Palpation: abdomen is soft and non-tender, Liver: no appreciated palpable abnormalities, Hernia: not appreciated, Vital Signs: 13:00 BP 146 / 102; Pulse 71; Resp 15; Temp 98.7(O); Pulse Ox 100% on R/A; Weight 64.86 kg; cm10 Height 5 ft. 7 in. ; Pain 4/10; 13:00 Body Mass Index 22.40 (64.86 kg, 170.18 cm) cm10 13:00 Pain Scale: Adult cm10 MDM: 12:36 Medical Screening Exam initiated walker 17:23 Differential diagnosis: Nonspecific abd pain, gastritis, pancreatitis, appendicitis, walker diverticulitis, viral gastroenteritis, gastroenteritis. Data reviewed: vital signs, nurses notes, lab test result(s), EKG, radiologic studies, CT scan. Consideration of Admission/Observation Escalation of care including admission/observation considered. I considered the following discharge prescriptions or medication management in the emergency department Medications were administered in the Emergency Department. See MAR. Independent interpretation of the following test(s) in the Emergency Department EKG: See my EKG interpretation above. Test considered but Not performed: Ultrasound no abd usg. Historians other than the Patient: Spouse/Significant Other: spouse well informed. Care significantly affected by the following chronic conditions: anxiety, depression, seizures. 06/11 12:39 Order name: Basic Metabolic Panel; Complete Time: 16:53 [facility] 06/11 12:39 Order name: CBC with Diff; Complete Time: 16:53 [facility] 06/11 12:39 Order name: LFT's; Complete Time: 16:53 [facility] 06/11 12:39 Order name: Magnesium; Complete Time: 16:53 [facility] 06/11 12:39 Order name: NT PRO-BNP; Complete Time: 16:53 [facility] 06/11 12:39 Order name: PT-INR; Complete Time: 16:53 [facility] 06/11 12:39 Order name: Troponin HS; Complete Time: 16:53 [facility] 06/11 12:39 Order name: Lipase; Complete Time: 16:53 [facility] 06/11 12:39 Order name: Urinalysis w/ reflexes; Complete Time: 16:53 [facility] 06/11 12:39 Order name: Urine Culture [facility] 06/11 12:39 Order name: XRAY Chest (1 view); Complete Time: 16:53 [facility] 06/11 12:39 Order name: CT Abd/Pelvis - IV Contrast Only; Complete Time: 16:53 [facility] 06/11 12:39 Order name: EKG - Nurse/Tech; Complete Time: 16:59 [facility] 06/11 12:39 Order name: IV Saline Lock; Complete Time: 14:16 [facility] 06/11 12:39 Order name: Labs collected and sent; Complete Time: 14:16 walker 06/11 12:39 Order name: O2 Per Protocol; Complete Time: 14:16 walker 06/11 12:39 Order name: O2 Sat Monitoring; Complete Time: 16:59 walker EC:33 Rate is 55 beats/min. Rhythm is regular. QRS Floyd is Normal. FL interval is normal. QRS walker interval is normal. QT interval is normal. No Q waves. T waves are Normal. No ST changes noted. Clinical impression: Sinus bradycardia and No evidence of ischemia. Interpreted by me. Reviewed by me. Administered Medications: 14:15 Not Given (Other Intervention Used): ondansetron 8 mg IVP once; over 2 minutes ss 14:15 Drug: Ondansetron IVP 4 mg IVP once; over 2 minutes {Note: 4 mg given as patient has ss already had 8 mg this morning .} Route: IVP; Site: left antecubital; 15:00 Follow up: Response: No adverse reaction; Marked relief of symptoms jb4 14:16 Drug: NS 0.9% IV 1000 ml IV at 1 bolus Per protocol; to be given as a bolus over 60 ss minutes Route: IV; Rate: 1 bolus; Site: left antecubital; 15:16 Follow up: Response: No adverse reaction; IV Status: Completed infusion; IV Intake: jb4 1000ml 14:16 Not Given (PT states she takes nightly pepcid. Dr. Hawkins notifiedd): [id number] mg ss IVP once; dilute with 10 mL 0.9% NaCl; give over 2 minutes Disposition Summary: 06/11/24 17:28 Discharge Ordered Notes: Location: Home walker Problem: new walker Symptoms: have improved walker Condition: Stable walker Diagnosis - Abdominal pain, Generalized walker - Vomiting walker Followup: walker - With: Private Physician - When: 2 - 3 days - Reason: Recheck today's complaints, Continuance of care, Re-evaluation by your physician Followup: walker - With: Rhys Boss MD - When: 2 - 3 days - Reason: Recheck today's complaints, Re-evaluation by your physician Discharge Instructions: - Discharge Summary Sheet walker - Abdominal Pain, Adult walker - Nausea and Vomiting, Adult walker - Nausea and Vomiting, Adult, [id number] walker - Abdominal Pain, Adult, [id number] walker Forms: - Medication Reconciliation Form walker - Antibiotic Education walker - Prescription Opioid Use walker - Patient Portal Instructions walker - Leadership Thank You Letter walker - Work release form jb4 Prescriptions: - ondansetron 4 mg Oral Tablet,disintegrating - take 1 tablet ORAL route every 6-8 hours for 5 days prn; 20 tablet; Refills: 0, [facility] Product Selection Permitted - Pepcid 20 mg Oral Tablet - take 1 tablet ORAL route every 12 hours for 10 days; 20 tablet; Refills: 0, [facility] Product Selection Permitted - promethazine 25 mg Oral tablet - take 1 tablet ORAL route every 6 hours As needed prn intractable n/v; 14 walker tablet; Refills: 0, Product Selection Permitted Signatures: Dispatcher [employer] EDMS Bartolo Hawkins MD MD cha Blanchard, Shelby, RN RN ss Rebekah Da Silva RN RN cm10 Ayo Jalloh RN jb4 Corrections: (The following items were deleted from the chart) 12:40 12:40 BASIC METABOLIC PANEL+C.LAB.BRZ ordered. EDMS EDMS 12:40 12:40 CBC+H.LAB.BRZ ordered. EDMS EDMS 12:40 12:40 HEPATIC FUNCTION+C.LAB.BRZ ordered. EDMS EDMS 12:40 12:40 MAGNESIUM+C.LAB.BRZ ordered. EDMS EDMS 12:40 12:40 PROBNP+C.LAB.BRZ ordered. EDMS EDMS 12:40 12:40 PROTIME (+INR)+COAG.LAB.BRZ ordered. EDMS EDMS 12:40 12:40 Troponin High Sensitivity+C.LAB.BRZ ordered. EDMS EDMS 12:40 12:40 LIPASE+C.LAB.BRZ ordered. EDMS EDMS 12:40 12:40 Urinalysis+U.LAB.BRZ ordered. EDMS EDMS 12:40 12:40 Urine Culture+BA.LAB.BRZ ordered. EDMS EDMS 12:40 12:40 Chest Single View+RAD.RAD.BRZ ordered. EDMS EDMS 12:40 12:40 Abdomen Pelvis W Con+CT.RAD.BRZ ordered. EDRI EDMS 17:33 17:22 Rate is 5 beats/min. Rhythm is regular. QRS Floyd is Normal. FL interval is walker normal. QRS interval is normal. QT interval is normal. No Q waves. T waves are Normal. No ST changes noted. Clinical impression: Sinus bradycardia and No evidence of ischemia. Interpreted by me. Reviewed by me. walker
[2024-06-11 19:01] VITALS: BP 146/102; TEMP 98.7; O2SAT 100
== END 2024-06-11 18:20 | disposition home or self-care (01) ==
LOC: ER 12:26
DX: R10.84 Generalized abdominal pain (principal); R11.2 Nausea with vomiting, unspecified; R19.7 Diarrhea, unspecified
CPT/HCPCS: 87088; 85025; 81001; 87086; 80048; 36415; 83735; 85610; 80076; 84484; 83690; 83880; 74177; 71045; Q9967; J2405; J7030; 93005